=== PATIENT | male | born 1950 | race Caucasian/White ===

== ENCOUNTER 2024-01-05 11:34 | Emergency (ER) | payer MEDICARE, SELFPAY ==
--- NOTE | ~2024-01-05 | XR_ITS ---
EXAMINATION: XR FOOT, RIGHT CLINICAL INFORMATION: Right thrid toe redness and swelling COMPARISON: None available. TECHNIQUE: AP, lateral, and oblique views of the right foot. FINDINGS: Osseous structures of the foot are aligned anatomically with joint spaces maintained. No acute fracture. There is soft tissue swelling to the third digit. No radiopaque foreign body. No erosion. Moderate plantar calcaneal spur. Rounded soft tissue calcifications are noted overlying the skin. XR/XR foot RT 2V IMPRESSION: 1. Soft tissue swelling to the third digit. No radiopaque foreign body. No erosion. 2. Moderate plantar calcaneal spur.
[2024-01-05 11:43] VITALS: BP 117/75; PULSE 98; RESP 16; TEMP 37.2; O2SAT 97; BMI 25.4
--- NOTE | 2024-01-05 11:50 | ED_ITS ---
HPI - General Adult General Chief complaint: General Medical Stated complaint: Toe infection Time Seen by Provider: 01/05/24 11:52 Source: patient Mode of arrival: ambulatory Limitations: no limitations History of Present Illness ED Provider: Britney Phillips PA-C HPI narrative: 73 year old male patient with a PMHx of diabetes presents to the ER due to 1 day of swelling of the right third toe. States that he is not compliant with his diabetes medications. He attempted to take his diabetes medication yesterday to help with the swelling. But otherwise, inconsistent. He admits to having uncomfortable shoes, believes his toe was rubbing on it. Denies dyspnea, chest pin, palpitations, fever or chills. Onset (ago): day(s) Location: right (3rd toe) Radiation: non-radiation Severity: mild Severity scale (1-10): 3 Quality: aching and dull Pain Consistency: constant Relieving factors: none Exacerbating factors: none Associated symptoms: denies other symptoms Treatments prior to arrival: none Related Data Previous Rx's ?Medication ?Instructions ?Recorded cephalexin 500 mg capsule 500 mg PO Q6H 7 days #28 caps 01/05/24 cephalexin 500 mg tablet 500 mg PO Q6H 7 days #28 tabs 01/05/24 doxycycline hyclate 100 mg capsule 100 mg PO BID 7 days #14 caps 01/05/24 doxycycline hyclate 100 mg tablet 100 mg PO BID 7 days #14 tabs 01/05/24 Allergies Allergy/AdvReac Type Severity Reaction Status Date / Time No Known Allergies Allergy Verified 01/05/24 11:45 Review of Systems 2 Constitutional: Constitutional: Reports no additional constitutional complaints, Denies chills, Denies fever(s) and Denies night sweats Eyes: Eyes: Reports no additional eye complaints, Denies blurry vision, Denies change in vision, Denies diplopia, Denies eye discharge, Denies loss of vision and Denies eye pain ENT: Denies dizziness Cardiovascular: Cardiovascular: Reports no additional cardiovascular complaints, Denies chest pain, Denies lightheadedness, Denies Loss of Consciousness and Denies dyspnea Respiratory: Respiratory: Reports no additional respiratory complaints and Denies dyspnea Gastrointestinal: Gastrointestinal: Reports no additional gastrointestinal complaints, Denies abdominal pain, Denies melena, Denies hematochezia, Denies change in bowel habits and Denies change in stool character Genitourinary: Genitourinary: Reports no additional male genitourinary complaints, Denies hematuria, Denies oliguria, Denies difficulty urinating, Denies dysuria, Denies urinary frequency, Denies urinary hesitancy, Denies urinary incontinence and Denies urinary urgency Musculoskeletal: Musculoskeletal: Reports no additional musculoskeletal complaints, Denies numbness and Denies tingling Comments: right 3rd toe swelling Neurologic: Denies dizziness, Denies loss of vision, Denies numbness and Denies tingling Psychiatric: Psychiatric: Reports no additional psychiatric complaints Endocrine: Endocrine: Reports no additional endocrine complaints Hematologic/Lymphatic: Hematologic/Lymphatic: Reports no additional hematologic/lymphatic complaints Allergic/Immunologic: Allergic/Immunologic: Reports no additional allergic/immunologic complaints PMFSH Past Medical History Attestation statement: The following information was validated with the patient. Source: old records reviewed and nursing notes reviewed Social History Social History Smoked in Last 30 Days: No Use of substances other than those prescribed or required for medical reasons: No Advance Directives: No Advance Directives Information Provided: No Physical Exam ED Vital Signs: Vital Signs - 24 hr 01/05/24 11:43 01/05/24 12:00 01/05/24 14:00 Temperature 98.9 F Pulse Rate 98 72 78 Respiratory Rate 16 16 16 Blood Pressure 117/75 119/68 122/70 Pulse Oximetry 97 96 97 Oxygen Delivery Method Room Air Room Air Room Air 01/05/24 15:19 Temperature 0 F L Pulse Rate 78 Respiratory Rate 16 Blood Pressure 122/70 Pulse Oximetry 97 Oxygen Delivery Method Room Air BMI result Body Mass Index 25.4 Const General: cooperative, no acute distress, alert and awake Nutritional Appearance: well nourished Orientation/consciousness: patient oriented x3 Limitations: no limitations HENMT Head: Yes normal to inspection and Yes atraumatic Ears: hearing grossly normal bilaterally and external ears normal General nose exam: Normal external nose present, no nasal discharge noted and no epistaxis Face and sinus: Yes normal facial exam, No abrasion and No laceration Mouth: Normal oral and palatal mucosa present, no drooling and no muffled voice Eyes General: appearance normal, both eyes and all related structures Periorbital: periorbital findings normal Eyelids: Yes eyelids normal Conjunctivae: conjunctivae normal Pupils: Equal, round and reactive pupils present EOM: EOMs intact bilaterally Neck Neck: Yes normal visual inspection, Yes full ROM and Yes no lymphadenopathy Chest Chest palpation & inspection: normal inspection of the chest Resp Effort & Inspection: normal respiratory effort and able to speak in complete sentences GI Inspection: Yes normal to inspection Neuro General: patient oriented x3 and moves all extremities Cranial nerves: Yes Equal, round and reactive pupils present Cognition (Neuro): normal cognition Extrem General: Yes full ROM and Yes capillary refill normal Right lower extremity: foot (right third toe erythematous, tender to palpation, fluctuant ) Details: tenderness, warmth and edema Psych Appearance: grossly normal Mental Status: mental status grossly normal Affect: normal affect Attitude: cooperative Thought process: Normal thought process present Thought content: Normal thought content present Insight: Good insight present (Psych) Course Course Course Narrative: RME: Done by Abdirizak. 73 yold male with past medical history of diabetes presents to ED for right 3rd foot toe redness and swelling since last night. Patient denies any recent trauma. Exam positive for right 3rd toe redness and swelling. Labs x-ray ordered. Patient brought to the ED. Medications Administered Discontinued Medications Generic Name Dose Route Start Last Admin Trade Name Freq PRN Reason Stop Dose Admin Cephalexin HCl 500 mg 01/05/24 14:56 01/05/24 15:12 Cephalexin 500 Mg Capsule PO 01/05/24 14:57 500 mg ONCE ONE Administration Doxycycline Monohydrate 100 mg 01/05/24 14:56 01/05/24 15:12 Doxycycline Monohydrate 100 Mg Capsule PO 01/05/24 14:57 100 mg ONCE ONE Administration Procedures Abscess I/D Site: other (3rd toe) Side (if applicable): right Technique: needle aspiration Amount of fluid expressed (mL): 15 Sent for culture/gram staining?: No Irrigation: No Packing used?: none Medical Decision Making Medical Decision Making [facility] Narrative: Patient is a 73 year old assigned male at with a history of diabetes for which he is non-compliant on medications presenting to the emergency department today with right 3rd toe swelling. Patient's physical exam was as noted in the physical exam portion of this note. Patient's blood work was unremarkable. Patient's right foot x-ray showed no acute process. I explained my physical exam findings as well as all test results to the patient. I answered all questions asked by the patient. Patient's toe abscess was incised and drained, without incident. I stressed the importance of the patient taking his medication as directed (either prescribed or as the over the counter packaging recommends). I stressed the importance of the patient following up with his primary care provider and with the wound center. I stressed the importance of the patient returning to the emergency department immediately if his symptoms were to worsen or if he were to develop any dizziness, shortness of breath, difficulty breathing, chest pain, blurry vision, loss of vision, nausea, vomiting, abdominal pain, fever, chills, back pain, or any other complaints. Patient verbalized agreement and understanding with this treatment plan and discharge. Differential Diagnosis Differential Diagnoses: The differential diagnosis associated with the presentation includes Toe abscess Uncontrolled diabetes Admission/Observation Consideration of admission/observation: Escalation of care including admission/observation considered Patient would have been admitted to the hospital had his work up had any findings where hospital admission was appropriate and his clinical presentation warranted hospital admission. Lab Data [facility] Lab Attestation statement: I reviewed the patient's lab results. My interpretation of these results are in the MDM Rationale portion of this note. 01/05/24 12:18 01/05/24 12:18 Labs: Lab Results 01/05/24 01/05/24 Range/Units 12:17 12:18 WBC 9.2 (4.8-10.8) X10*3/uL RBC 4.74 (4.60-5.80) X10*6/uL Hgb 13.8 L (14.0-18.0) g/dl Hct 39.5 L (42.0-52.0) % MCV 83.3 (80.0-98.0) fL MCH 29.1 (27.0-33.0) pg MCHC 34.9 (31.0-36.0) g/dl RDW 12.1 (11.0-16.0) % Plt Count 293 (160-400) X10*3/uL MPV 10.2 (9.4-12.4) fL Immature Gran % (Auto) 0.4 (0.0-0.4) % Neut % (Auto) 68.2 (45-73) % Lymph % (Auto) 20.9 (20-40) % [place] % (Auto) 7.8 (2-11) % Eos % (Auto) 2.0 (0-4) % Baso % (Auto) 0.7 (0-2) % Lymph # (Auto) 1.9 (1.2-4.9) X10*3/uL [place] # (Auto) 0.7 (0.1-1.2) X10*3/uL Eos # (Auto) 0.2 (0.0-0.4) X10*3/uL Baso # (Auto) 0.1 (0.0-0.2) X10*3/uL Abs Immat Gran (auto) 0.04 H (0.00-0.03) X10*3/uL Absolute Neuts (auto) 6.3 (2.0-8.3) x10*3/uL Absolute Nucleated RBC 0.000 (0.0-0.012) X10*3/uL Nucleated RBC % (auto) 0.0 (0.0-0.2) /100WBC ESR 19 H (0-15) MM/HR Sodium 134 L (135-145) mmol/L Potassium 4.6 (3.3-5.1) mmol/L Chloride 100 (96-108) mmol/L Carbon Dioxide 23 (22-29) mmol/L Anion Gap 16 (12-20) BUN 19 H (9-16) mg/dL Creatinine 0.80 (0.5-1.4) mg/dL Estim Creat Clear Calc 79.5 Estimated GFR > 60 Random Glucose 344 H (60-115) mg/dL Lactic Acid 1.2 (0.5-2.0) mmol/L Calcium 9.6 (8.4-10.2) mg/dL Total Bilirubin 0.8 (0.0-1.0) mg/dL AST 11 (5-37) U/L ALT 12 (0-40) U/L Alkaline Phosphatase 84 (39-117) U/L C-Reactive Protein 2.82 H (< or = 0.50) mg/dL Total Protein 6.6 (6.5-8.0) g/dL Albumin 3.7 (3.5-5.0) g/dL Independent Interpretation I performed an independent interpretation of an: Plain X-Ray Interpretation: My interpretation is in agreement with the radiologist's impression of this imaging study. - EXAMINATION: XR FOOT, RIGHT CLINICAL INFORMATION: Right thrid toe redness and swelling COMPARISON: None available. TECHNIQUE: AP, lateral, and oblique views of the right foot. FINDINGS: Osseous structures of the foot are aligned anatomically with joint spaces maintained. No acute fracture. There is soft tissue swelling to the third digit. No radiopaque foreign body. No erosion. Moderate plantar calcaneal spur. Rounded soft tissue calcifications are noted overlying the skin. XR/XR foot RT 2V IMPRESSION: 1. Soft tissue swelling to the third digit. No radiopaque foreign body. No erosion. 2. Moderate plantar calcaneal spur. Dictated By: Huma River Signed By: Electronically signed by Huma River 01/05/24 1526 Radiology Impression Discussion of test interpretation with radiology: I have reviewed the radiologist's reading. Prescription Management I considered prescription management with: Antibiotic (patient prescribed an antibiotic) Chronic Conditions Patient?s care impacted by: Diabetes Critical Care Time Critical Care Time Critical Care Time: Yes Total Critical Care Time: 38 Attestation: I spent 38 minutes of Critical Care Time with this patient. This does not include time spent on separately reported billable procedures. Discharge Plan Discharge Clinical Impression: Abscess, Cellulitis Patient Disposition: Home, Self-Care Instructions: Cellulitis (DC), Abscess Incision and Drainage (DC) Additional Instructions: Take your antibiotics as directed. Do NOT soak the affected area. Follow up with your primary care provider and with wound care. Please take your diabetic medications as prescribed. Return to the emergency department immediately if your symptoms worsen or if you develop any dizziness, shortness of breath, difficulty breathing, chest pain, blurry vision, loss of vision, nausea, vomiting, abdominal pain, fever, chills, back pain, or any other complaints. Prescriptions: New cephalexin 500 mg capsule 500 mg PO Q6H 7 Days Qty: 28 0RF doxycycline hyclate 100 mg tablet 100 mg PO BID 7 Days Qty: 14 0RF doxycycline hyclate 100 mg capsule 100 mg PO BID 7 Days Qty: 14 0RF cephalexin 500 mg tablet 500 mg PO Q6H 7 Days Qty: 28 0RF Referrals: [facility] [Provider Group] (Call to establish and follow up with the wound center.) José Miguel Vega PA [Primary Care Provider] - Interventions: ED Discharge Assessment Last Done: 01/05/24 15:19 Discharge Date/Time: 01/05/24 15:20 Print Language: Icelandic
[2024-01-05 12:00] VITALS: BP 119/68; PULSE 72; RESP 16; O2SAT 96
--- NOTE | 2024-01-05 12:15 | PC.NURSE ---
pt is alert and oriented, skin pwd, respirations even and unlabored, pt reports being at [employer] yesterday and wearing tight socks/shoes and noticed redness/soreness to his third right toe-third toe has a large like blister on the tip of the toe/blue in color/redness to the top of the foot at well. positive pedal pulses to bilateral feet.
[2024-01-05 12:28] LABS: MANUAL DIFF FLAG NO
[2024-01-05 12:40] LABS: Basophils Absolute Auto 0.1 X10*3/uL (0.0-0.2); Basophils Percent Auto 0.7 % (0-2); Eosinophils Absolute Auto 0.2 X10*3/uL (0.0-0.4); Hematocrit 39.5 % (42.0-52.0); Hemoglobin 13.8 g/dl (14.0-18.0); Imm Gran Abs Auto 0.04 X10*3/uL (0.00-0.03); Imm Gran Pct Auto 0.4 % (0.0-0.4); Lymphocytes Absolute Auto 1.9 X10*3/uL (1.2-4.9); Lymphocytes Percent Auto 20.9 % (20-40); Mean Corpuscular HGB Conc 34.9 g/dl (31.0-36.0); Mean Corpuscular Hemoglobin 29.1 pg (27.0-33.0); Mean Corpuscular Volume 83.3 fL (80.0-98.0); Mean Platelet Volume 10.2 fL (9.4-12.4); Monocytes Absolute Auto 0.7 X10*3/uL (0.1-1.2); Monocytes Percent Auto 7.8 % (2-11); Neutrophils Absolute Auto 6.3 x10*3/uL (2.0-8.3); Neutrophils Percent Auto 68.2 % (45-73); Platelet Count 293 X10*3/uL (160-400); Red Blood Count 4.74 X10*6/uL (4.60-5.80); Red Cell Distribution Width 12.1 % (11.0-16.0); White Blood Count 9.2 X10*3/uL (4.8-10.8)
[2024-01-05 12:51] LABS: Lactic Acid 1.2 mmol/L (0.5-2.0)
[2024-01-05 12:54] LABS: Alanine Aminotransferase 12 U/L (0-40); Albumin Level 3.7 g/dL (3.5-5.0); Alkaline Phosphatase 84 U/L (39-117); Anion Gap 16 (12-20); Aspartate Amino Transferase 11 U/L (5-37); Bilirubin Total 0.8 mg/dL (0.0-1.0); Blood Urea Nitrogen 19 mg/dL (9-16); C Reactive Protein 2.82 mg/dL (< or = 0.50); Calcium 9.6 mg/dL (8.4-10.2); Carbon Dioxide 23 mmol/L (22-29); Chloride 100 mmol/L (96-108); Creatinine Clr Calc Pharmacy 79.5; Estimated Glomerular Filt Rate > 60; Glucose Random 344 mg/dL (60-115); Potassium 4.6 mmol/L (3.3-5.1); Sodium 134 mmol/L (135-145); Total Protein 6.6 g/dL (6.5-8.0)
[2024-01-05 13:20] LABS: Erythrocyte Sedimentation Rate 19 MM/HR (0-15)
[2024-01-05 14:00] VITALS: BP 122/70; PULSE 78; RESP 16; O2SAT 97
[2024-01-05] MEDS: cephALEXin 500 MG CAPSULE PO (15:12)
[2024-01-05] MEDS: Doxycycline Monohydrate 100 MG CAPSULE PO (15:12)
[2024-01-05 15:19] VITALS: BP 122/70; PULSE 78; RESP 16; TEMP -17.7; TEMP 0; O2SAT 97
== END 2024-01-05 15:20 | disposition home or self-care (01) ==
PROVIDERS: Physician Assistant; Emergency Provider Emergency Medicine; PCP Physician Assistant
DX: L02.611 Cutaneous abscess of right foot (principal); M79.89 Other specified soft tissue disorders; Z91.148 Patient's other noncompliance with medication regimen for other reason; Z79.899 Other long term (current) drug therapy
CPT/HCPCS: 10060; 26010; 36415; 73620; 80053; 83605; 85025; 85652; 86140; 87040; 99283; 99284

== ENCOUNTER 2024-01-18 14:03 | Outpatient (RCR) | payer MEDICARE, SELFPAY | END 2024-02-24 09:57 | disposition home or self-care (01) | LOC: HO.WCC 14:03 | PROVIDERS: PCP Physician Assistant; Visit Provider Surgery | DX: Z09 Encounter for follow-up examination after completed treatment for conditions other than malignant neoplasm (principal); E11.40 Type 2 diabetes mellitus with diabetic neuropathy, unspecified; Z87.891 Personal history of nicotine dependence; Z79.4 Long term (current) use of insulin; Z79.84 Long term (current) use of oral hypoglycemic drugs; Z86.31 Personal history of diabetic foot ulcer | CPT/HCPCS: 99212 ==

== ENCOUNTER 2024-09-06 14:55 | Outpatient (AMB) | payer MEDICARE, SELFPAY ==
--- NOTE | 2024-09-06 14:57 | A.OFFVIS_ITS ---
Intake Visit Reasons: ED/retrograde ejaculation Intake Note: Patient is present for ED/ RETROGRADE EJACULATION Urology Medication:NONE Antibiotic Allergy:NONE Blood Thinner:NONE TODAY'S PVR:311ML'S English Composition Instructor Required: No Allergies No Known Allergies Allergy (Verified 09/06/24 14:58) HPI Comments Details: History of Present Illness The patient is a 73-year-old male presenting with erectile dysfunction. He reports a complete absence of erections and a lack of semen production, an issue he notes during masturbation as his is absent. He attributes some of his difficulties to his uncontrolled Type 2 Diabetes Mellitus, as he discontinued his medications fearing cancer risks, resulting in significantly high hemoglobin A1c levels. 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 Although previously untreated for erectile issues and without any sexual partner currently due to his 's absence, he has shown interest in pharmaceutical intervention like tadalafil to manage erectile dysfunction. Urinary Symptoms Review - Reports lack of semen production during masturbation - Describes possible retrograde ejaculation due to prostate enlargement and diabetic neuropathy Review of Systems - Endocrine: Reports uncontrolled blood glucose levels related to untreated diabetes - Musculoskeletal: Reports osteoporosis in the knee affecting mobility and requiring a handicap sticker Const All systems reviewed & are unremarkable except as noted in HPI and below Reports no additional complaints Eyes Reports no additional complaints ENT Reports no additional complaints Card Reports no additional complaints Resp Reports no additional complaints GI Reports no additional complaints Reports as per HPI Musc Reports no additional complaints Skin/Breast Reports system reviewed and no additional complaints, except as documented Neuro Reports no additional complaints Psych Reports no additional complaints Endo Reports no additional complaints Nacho/Lymph Reports no additional complaints Aller/Immun Reports no additional complaints Physical Exam General: Healthy appearing, no acute distress and well developed Orientation and consciousness: Patient oriented x3 Head: Yes normocephalic and Yes atraumatic Eyes: Conjunctivae normal Neck: Yes normal visual inspection Chest: Normal inspection of the chest Respiratory: Normal respiratory effort GI: Normal to inspection : Extremities: Skin: Neurology: Patient oriented x3 Psych: Appearance grossly normal. Normal affect Results Plan I will prescribe tadalafil for erectile dysfunction and order a PSA test to evaluate prostate health, along with kidney and bladder ultrasound for diagnostic clarity related to symptoms of retrograde ejaculation and potential diabetic neuropathy implications. The patient's current diabetes management is insufficient, impacting his symptoms, so his primary care provider will be alerted to initiate control. The patient has consented to the tadalafil treatment and agreed to the necessary evaluations with a GoodRx coupon being utilized for affordability. Patient was informed and verbally consented to the use of an ambient scribe for clinic note documentation during this visit. Discussion Notes I discussed with the patient the potential contributor of uncontrolled diabetes to his erectile dysfunction, explaining how high glucose levels could damage the nerves essential for erections. I informed him that his prostate health could also be influencing his symptoms, and therefore, a PSA test and ultrasound were recommended. We talked about tadalafil as a management option, considering his lifestyle and current situation without an active partner. I highlighted the use of GoodRx coupons to mitigate prescription costs. We discussed the necessity of avoiding sexual activity 48 hours before the PSA test. He agreed to the proposed management plan, understanding the benefits and alternatives. Patient Instructions - Start taking tadalafil 5 mg daily as prescribed. - Schedule and complete a PSA test and a kidney and bladder ultrasound. - Avoid sexual activity 48 hours before the PSA test. - Use the GoodRx coupon for affordability when filling your prescription. - Follow up regarding diabetes management with your primary care provider. Office Procedures Post Void Residual Post Residual Void Post Void Residual (PVR): [id number] Void Residual by ultrasound Results AMB Urinalysis, Automated UA Leukoctes 15 Alexandre/uL Last Edit by MARGA Appiah on 09/06/24 15:19 UA Nitrite Negative Last Edit by MARGA Appiah on 09/06/24 15:19 UA Urobilinogen 3.5 mg/dL Last Edit by MARGA Appiah on 09/06/24 15:1 9 UA Protein 0 mg/dL Last Edit by MARGA Appiah on 09/06/24 15:19 UA pH 6.0 Last Edit by MARGA Appiah on 09/06/24 15:19 UA Blood 10 Bhupinder/uL Last Edit by MARGA Appiah on 09/06/24 15:19 UA Specific [place] 1.010 Last Edit by MARGA Appiah on 09/06/24 15: 19 UA Ketone Negative Last Edit by MARGA Appiah on 09/06/24 15:19 UA Bilirubin 0 mg/dL Last Edit by MARGA Appiah on 09/06/24 15:19 UA Glucose 60 mg/dL Last Edit by MARGA Appiah on 09/06/24 15:19 Results Reviewed Results Reviewed: Laboratory Last Values Urine pH (Auto) 6.0 09/06/24 15:13 Specific [place]onson (Auto) 1.010 09/06/24 15:13 Urine Protein (Auto) 0 mg/dL 09/06/24 15:13 Glucose (UA)(Auto) 60 mg/dL 09/06/24 15:13 Urine Ketones (Auto) Negative 09/06/24 15:13 Urine Blood (Auto) 10 Bhupinder/uL 09/06/24 15:13 Urine Nitrite (Auto) Negative 09/06/24 15:13 Urine Bilirubin (Auto) 0 mg/dL 09/06/24 15:13 Urine Urobilinogen (Auto) 3.5 mg/dL 09/06/24 15:13 Leukocyte Esterase (Auto) 15 Alexandre/uL 09/06/24 15:13 Assessment & Plan Assessment & Plan Orders: Orders AMB Urinalysis Automated Today Z13.9 - Encounter for screening, unspecified Coding CPT Codes Post Residual Void - PVR CPT Code: 29488-Wuvp Void Residual by ultrasound ([id number])
--- OUTSIDE RECORDS SUMMARY | 2024-09-06 18:25 | XMS_ITS | Clinical Summary ---
Author Organization [facility] Address [address] [place] [address] Care Team Providers Care Risk Control Director Name Role Phone José Miguel Vega Primary Care Provider [phone] Source Comments PLEASE NOTE, if this patient is a minor, it may be UNLAWFUL to discuss sensitive information that is contained in these records (such as FAMILY PLANNING, MENTAL HEALTH or SUBSTANCE ABUSE) with the minor patient's parent or other person without the patient's specific authorization.[facility] Allergies No known active allergies Medications [id number] h-wqgzzad-owf (KRILL OIL) [id number] mg cap Take by mouth 021 Active diaper,brief,adul t,disposableIndic ations:Urinary incontinence, unspecified type Use one breif three times daily for urinary leakage. DEPENDS PROTECTION PLUS. 120 Each 023 Active MISCELLANEOUS MEDICAL SUPPLY MISCIndications:U rinary incontinence, unspecified type by miscellaneous route once daily Adults pull-ups for men size (L)- 38-42. Lifetime need. BMI 26.99, dx urinary incontinence 180 Each 023 Active diaper,brief,adul t,disposableIndic ations:Type 2 diabetes mellitus with hyperglycemia, with long-term current use of insulin ([facility]),Urinary incontinence, unspecified type Use one brief twice daily for urinary incontinence. 120 Each 023 Active MISCELLANEOUS MEDICAL SUPPLY MISC Patient to use daily to assist with mobility. 1 Each 023 Active blood sugar diagnostic (CONTOUR NEXT TEST STRIPS) strips Test blood sugars TID w/meals and for symptoms of hypoglycemia 100 Each 023 Active MISCELLANEOUS MEDICAL SUPPLY MISCIndications:L ow back pain, unspecified back pain laterality, unspecified chronicity, unspecified whether sciatica present,Primary osteoarthritis of both knees,DEB (obstructive sleep apnea),Muscular deconditioning Please dispense one each of the following: bed pads, pillows, boost, a scooter, a hand rail and new toilet bowl (higher toilet bowl). 1 Each 023 Active underpadsIndicati ons:Dyslipidemia, Low back pain, unspecified back pain laterality, unspecified chronicity, unspecified whether sciatica present,Neck pain,Primary osteoarthritis of both knees,Class 1 obesity in adult, unspecified BMI, unspecified obesity type, unspecified whether serious comorbidity present,Other sleep apnea,Dysphagia, unspecified type,Hip pain, unspecified laterality,DEB (obstructive sleep apnea),Vision changes,Type 2 diabetes mellitus with hyperglycemia, with long-term current use of insulin (HCC-CMS),Diabeti c polyneuropathy associated with type 2 diabetes mellitus (HCC-CMS),Caries, Caries of pulp,Mixed stress and urge urinary incontinence,Semaj ry changes,Vitamin D deficiency,Muscul ar deconditioning Bed pads 18 X 24, disposable. 30 each per month for 11 months. 30 Each 023 Active psyllium seed, with dextrose, (METAMUCIL) powder Take 3 g of fiber by mouth once daily 368 g Active ammonium lactate (LAC-HYDRIN) 12 % lotion Apply topically as needed for dry skin 400 g 3 024 Active multivitamin tablet Take 1 Tablet by mouth once daily 90 Tablet 4 024 Active minoxidiL (ROGAINE) 2 % external solutionIndicatio ns:Hair loss disorder Apply topically 2 (two) times daily 60 mL 2 024 Active blood-glucose meter monitoring kitIndications:Ty pe 2 diabetes mellitus without complication, without long-term current use of insulin (HCC-CMS) as needed for blood glucose monitoring 1 Each 024 Active flash glucose sensor kit Use to test blood glucose at least 3 times daily. (Freestyle Viviane 3) 1 Kit Active blood sugar diagnostic (FREESTYLE LITE STRIPS) stripsIndications :Type 2 diabetes mellitus without complication, without long-term current use of insulin ([facility]) Use to test blood sugar once daily 100 Each Active ketorolac (ACULAR) 0.5 % ophthalmic solution Authorized by: JENNA BLACKMON Active flash glucose scanning reader miscIndications:T ype 2 diabetes mellitus with hyperglycemia, with long-term current use of insulin ([facility]) Use to test blood glucose at least 3 times daily - Freestyle Viviane 2 reader. 1 Each Active flash glucose sensor kitIndications:Ty pe 2 diabetes mellitus with hyperglycemia, with long-term current use of insulin ([facility]) Apply sensor to back of upper arm and change every 14 days. Use to test blood glucose at least 3 times daily (Freestyle Viviane 2 sensor). 2 Kit Active lancets 28 gaugeIndications: Type 2 diabetes mellitus with hyperglycemia, with long-term current use of insulin ([facility]) Use to check blood sugar up to 3 times daily (Freestyle Lancets) 100 Each 11 Active alcohol swabsIndications: Type 2 diabetes mellitus with hyperglycemia, with long-term current use of insulin ([facility]) Use to clean finger to test blood sugar up to 3 times daily. 100 Each 11 Active blood sugar diagnostic (BLOOD GLUCOSE TEST) stripsIndications :Type 2 diabetes mellitus with hyperglycemia, with long-term current use of insulin ([facility]) Use to test blood glucose at least 3 times daily. (Freestyle Precision Damien) 100 Each 5 Active atorvastatin (LIPITOR) 80 mg tabletIndications :Type 2 diabetes mellitus with hyperglycemia, with long-term current use of insulin ([facility]),Medicat ion refill Take 1 Tablet by mouth once daily 90 Tablet 3 024 Active dorzolamide (TRUSOPT) 2 % ophthalmic solution Active glycerin, adult, suppository Place 1 Suppository rectally as needed for constipation 30 Suppository 1 Active insulin lispro 100 unit/mL injection penIndications:Ty pe 2 diabetes mellitus with hyperglycemia, with long-term current use of insulin ([facility]) Below 100 - no insulin, 101 to 150 - 5 units, 151 to 200 - 10 units, 201 to 250 - 15 units, 251 to 300 - 20 units, 301 to 350 - 25 units; Max 75 units/day 15 mL 2 Active insulin glargine (LANTUS SOLOSTAR U-100 INSULIN) 100 unit/mL (3 mL) penIndications:Ty pe 2 diabetes mellitus with hyperglycemia, with long-term current use of insulin ([facility]),Uncontr olled type 2 diabetes mellitus with hyperglycemia ([facility]) Inject 30 units hs subcutaneously 15 mL 3 Active SURE COMFORT PEN NEEDLE 32 gauge x 1/4 ndle Use 4 times daily to inject insulin 100 Each 11 Active dapagliflozin propanediol (FARXIGA) 5 mg tabIndications:Ty pe 2 diabetes mellitus without complication, without long-term current use of insulin ([facility]) Take 1 Tablet by mouth every morning 30 Tablet Active cholecalciferol, vitamin D3, (VITAMIN D3) 1,250 mcg (50,000 unit) capsuleIndication s:Vitamin D deficiency TAKE ONE CAPSULE BY MOUTH ONCE A WEEK 12 Capsule 5 Active metFORMIN (GLUCOPHAGE) 1,000 mg tabletIndications :Type 2 diabetes mellitus with hyperglycemia, with long-term current use of insulin ([facility]),Diabeti c polyneuropathy associated with type 2 diabetes mellitus ([facility]) Take 1 Tablet by mouth 2 (two) times daily with a meal 60 Tablet Active latanoprost (XALATAN) 0.005 % ophthalmic solutionIndicatio ns:ocular hypertension INSTILL ONE DROP INTO BOTH EYES NIGHTLY AT BEDTIME Indications: increased pressure in the eye 10 mL 2 Active Active Problems Patient Care Coordination No te Formatting of this note migh t be different from the original. 68 y/o male here today for diabetes management f/u evaluation. Latest HgbA1c 04/12/19 up to 7.7% from 7% 3 mo's prior. Followed by Cheyenne Lynn PA-C for Diabetes management, last seen 03/20/19.Glucometer review showed sub optimal control w/ once daily FBS testing x past 2wk. No changes made to current regimen: levemir 60 u and ozempic .25mg qWk Tuesdays, metformin 1000 mg bid. Instructed to f/u in 2 mo's for glucometer review and medication adjustments PRN. Problem Noted Date Diagnosed Date Disease due to severe acute respiratory syndrome coronavirus 2 (SARS-CoV-2) 08/14/2023 Overview (02/23/2024): Problem added by Discern Expert Elevated cholesterol 08/12/2021 Dysphagia 08/12/2021 Chronic cough 10/15/2019 Essential hypertension 06/19/2019 Closed fracture of distal en d of right fibula with routine healing 08/28/2018 Overview (10/02/2018): 08/25/18 - [facility] ED - S/P slip and fall with right ankle pain. Xray reveals - Oblique minimally displaced fracture through the distal fibula w/ associated swelling. Patient set to follow up with [facility] ortho. Cellulitis and abscess of lower extremity 2015 Overview (04/27/2016): Hospitalized about 2.5 weeks ago at [facility], April 09 for cellulitis from Tuesday night until Tuesday. Given IV antibiotics. Doxacillin? Left bundle branch block (LBBB) 11/15/2015 Overview (11/15/2015): Paradoxical septal wall motion with ef-50-55% - mildly reduced systolic dysfunction. Aortic sclerosis - transverse aorta -3.2cm Managed by [facility] cardiology -advised on sleep apnea treatment, weight loss Slow transit constipation 06/18/2015 Gall stones 10/09/2014 Abdominal pain in male 07/09/2014 Overview (08/05/2014): Ct abdomen/pelvis- small amount of increased density material ? Sludge ?calculi. - remain of exam- normal. Herpes 09/05/2013 Type 2 diabetes mellitus wit h hyperglycemia, with long-term current use of insulin ([facility]) 07/31/2013 Overview (06/19/2019): 03/20/19 - Latest HgbA1c 04/12/19 up to 7.7% from 7% 3 mo's prior. Followed by Cheyenne Lynn PA-C for Diabetes management, last seen 03/20/19.Glucometer review showed sub optimal control w/ once daily FBS testing x past 2wk. No changes made to current regimen: levemir 60 u and ozempic .25mg qWk Tuesdays, metformin 1000 mg bid. Instructed to f/u in 2 mo's for glucometer review and medication adjustments PRN. - eye doctor at [place]- 11/19/15- No retinopathy -[address] [place] [address] jay guy. -cardiology at [facility]. - dr. federica pan -[facility] endocrinology. - Abdominal pain in male patient 07/26/2013 Overview (08/06/2013): U/s of right lower quadrant- no renal stones, no hernia, normal Hip pain 07/03/2013 Osteoarthritis of both knees 03/25/2013 Obesity 03/25/2013 Overview (07/07/2023): Seen by weight loss on lantus and humalog which he is not taking , add glp-1 agonist next visit. DEB (obstructive sleep apnea) 03/25/2013 Overview (07/07/2023): Severe obstructive sleep apnea, advised positive airway pressure ,cpap. pt wants Dental appliance, . H/O left bundle branch block 03/25/2013 Overview (06/14/2015): Seen by [facility] cardiology- persistent LBBB,?inferior wall mi. Stress test-09/2010- lv-50%,all salazar were thought to augment normally with mild depressed lv function-50%. Advised on use of cpap, increased activity, weight loss. BPH (benign prostatic hyperplasia) 03/25/2013 Diabetes mellitus (HCC-CMS) 03/20/2013 Dyslipidemia 03/20/2013 Low back pain 03/20/2013 Neck pain 03/20/2013 Resolved Problems Problem Noted Date Diagnosed Date Resolved Date Acute cystitis with hematuria 06/18/2015 02/20/2021 Knee pain, bilateral 07/31/2013 014 Abdominal pain 07/03/2013 08/06/2013 Vitamin D deficiency 01/25/2013 013 Encounters Date Type Department Care Team Description 07/18/2024 2:20 PM EST Office Visit [facility] [address] [place] [phone] Rene Castro PharmD Type 2 diabetes mellitus with hyperglycemia, with long-term current use of insulin ([facility]) (Primary Dx); Medication management 07/18/2024 Travel 06/19/2024 3:40 PM EST Office Visit [address] [phone] José Miguel Vega PA Type 2 diabetes mellitus without complication, without long-term current use of insulin (HCC-CMS) (Primary Dx); Erectile dysfunction, unspecified erectile dysfunction type; Retrograde ejaculation; Vitamin D deficiency; Type 2 diabetes mellitus with hyperglycemia, with long-term current use of insulin (HCC-CMS); Diabetic polyneuropathy associated with type 2 diabetes mellitus (HCC-CMS); Primary open angle glaucoma (POAG) of both eyes, mild stage 06/19/2024 Travel from Last 3 Months Immunizations Name Administration Dates Next Due Flu, High Dose, 65y+, Fluzon e High Dose 04/06/2023,04/22/2022,06/16/2021 Flu, Preservative Free 07/19/2018 INFLUENZA, SEASONAL, INJECTABLE 03/27/2016,07/09,03/20/2013 Influenza (FLUZONE), high-do se, trivalent, PF 03/26/2024,05/10/2019 MODERNA COVID-19 VACCINE BIV ALENT, BLUE CAP, 6M+ 04/22/2022 Moderna COVID-19 Vaccine, re d cap blue label, 12+ Primary Series 11/12/2021,06/17/2021,09/20/2020,08/23 PNEUMOCOCCAL CONJUGATE PCV 13 06/03/2016 PNEUMOCOCCAL POLYSACCHARIDE PPV23 09/04/2019,12/2014 Pfizer COVID-19 (Comirnaty), Mrna, Lnp-s, Pf, James-sucrose, 30 Mcg/0.3 Ml, 12yr+ 03/26/2024,11/30/2023 TDAP 07/19/2018,12/24/2014 ZOSTER VACCINE, RECOMBINANT (SHINGRIX) 2,12/08/2021 Family History Medical History Relation Name Comments Diabetes Father Other (See Comments) Maternal Grandfather Alzheimers Relation Name Status Comments Father Maternal Grandfather Social History Tobacco Use Types Packs/Day Years Used Date Smoking Tobacco: Never Cigarettes Qu it: 07/04/2002 Smokeless Tobacco: Never Quit: 07/04/2004 Alcohol Use Standard Drinks/Week Comments No 0 (1 standard drink = 0.6 oz pur e alcohol) Social Connections Answer Date Recorded Connectedness 1 07/07/2023 Financial Resource Strain Answer Date R ecorded Financial Resource Strain 1 2023 Stress Answer Date Recorded Stress 1 07/07/2023 Physical Activity Answer Date Recorded Physical Activity 0 02/24/2019 Food Insecurity Answer Date Recorded Food 1 07/07/2023 Transportation Needs Answer Date Record ed Transportation 1 07/07/2023 Housing Stability Answer Date Recorded Housing 1 07/07/2023 Safety and Environment Answer Date Murphy rded Safety 1 07/07/2023 Utilities Answer Date Recorded Utilities 1 07/07/2023 Employment Answer Date Recorded Stress 0 09/21/2021 Sex and Gender Information Value Date Recorded Sex Assigned at Male 04/18/2017 11:41 AM PDT Legal Sex Male 11:36 AM PDT Gender Identity Male 04/18/2017 11:41 AM PDT Sexual Orientation Straight 04/18/2017 11 :41 AM PDT Occupation Industry Job Start Date Job End Date unemployed Not on file Not on file Not on file Last Filed Vital Signs Vital Sign Reading Time Taken Comments Blood Pressure 130/80 07/18/2024 2:25 PM EST Pulse 97 07/18/2024 2:25 PM EST Temperature 37.1 ??C (98.7 ??F) 07/18/2024 2:25 PM ES T Respiratory Rate 16 07/18/2024 2:25 PM EST Oxygen Saturation 98% 07/18/2024 2:25 PM EST Inhaled Oxygen Concentration - - Weight 76.2 kg (168 lb) 07/18/2024 2:25 PM EST Height 180.3 cm (5' 11 ) 07/18/2024 2:25 PM EST Body Mass Index 23.43 07/18/2024 2:25 PM EST Plan of Treatment Upcoming Encounters Date Type Department Care Team (Late st Contact Info) Description 09/14/2024 2:00 PM EDT Office Visit [facility] [address] [place] [phone] Rene Castro, PharmD [address] [place] [address] 09/20/2024 2:40 PM EDT Office Visit [facility] [address] [place] [phone] José Miguel Vega PA [address] [place] [address] Health Maintenance Due Date Last Done Comments CT Colonography 09/20/1995 Colonoscopy 09/20/1995 Fecal DNA 09/20/1995 Flexible Sigmoidoscopy 09/20/1995 Retinopathy Screening 11/18/2016 11/19/2015 Depression Annual Screen 07/04/2024 024, 09/04/2019, 07/19/2018, Additional history exists Diabetes HbA1c 07/19/2024 04/18/2024, 11/02, 05/25/2023, Additional history exists Dental Prophy 07/28/2024 01/24/2024, 02/01, 10/22/2022, Additional history exists Diabetes Foot Exam 11/29/2024 11/30/2023, 0 07/07/2023, 06/10/2022, Additional history exists Diabetes Microalbumin (w/Creatinine) 11/29/2024 11/30/2023, 07/27/2022, 03/20/2013 Lipid Screening 11/29/2024 11/30/2023, 0601/2022, 09/04/2020, Additional history exists Serum Creatinine 11/29/2024 11/30/2023, 02/2023, 12/08/2021, Additional history exists Tobacco Screening 01/12/2025 01/13/2024, , 09/03/2021, Additional history exists Dental BW 01/25/2025 01/24/2024, 10/03, 11/25/2021 Dental Examination 01/25/2025 01/24/2024, 0 10/22/2022, 11/25/2021 Dental Perio Charting 01/25/2025 01/24/2024 Falls Prevention 02/22/2025 02/23/2024, 08/12/2021 Medicare Annual Wellness Visit 02/22/2025 0 02/23/2024, 09/03/2021, 09/04/2020, Additional history exists Dental FMX/Pano 01/09/2028 01/06/2023, 11/25/2021 Imm-DTaP/Tdap/Td (3 - Td or Tdap) 07/19/2028 019, 12/24/2014 Colorectal Cancer Screening 05/10/2029 FIT/gFOBT 05/10/2029 05/10/2019 (Avelina henry by Outside Provider) Imm-Pneumococcal 65+ Completed 09/04/2019, 06/03/2016, 07/09/2014 Imm-Zoster, Recombinant Completed 04/22/2022, 12/08 Hepatitis C Screening Completed 11/30/2023 , 11/11/2022, 04/12/2019, Additional history exists [id number] Completed 03/26/2024, 11/02, 04/22/2022, Additional history exists Imm-Influenza Completed 03/26/2024, 10/2022, 04/22/2022, Additional history exists Alcohol and Drug Screen Completed 07/18/19, 07/07/2023, 09/08/2022, Additional history exists Procedures Procedure Name Priority Date/Time Associated Diagnosis Comments GLUCOSE, BLOOD BY GLUCOSE MONITORING DEVICE (CLIA WAIVED)POCT Routine 07/18/2024 3:22 PM EST Type 2 diabetes mellitus with hyperglycemia, with long-term current use of insulin ([facility]) GLUCOSE, BLOOD BY GLUCOSE MONITORING DEVICE (CLIA WAIVED)POCT Routine 07/18/2024 2:36 PM EST Type 2 diabetes mellitus with hyperglycemia, with long-term current use of insulin ([facility]) HGBA1C W/MPG Routine 04/18/2024 1:39 PM EDT Type 2 diabetes mellitus with hyperglycemia, with long-term current use of insulin ([facility]) Primary open angle glaucoma (POAG) of both eyes, mild stage Diabetic polyneuropathy associated with type 2 diabetes mellitus ([facility]) Preop general physical exam COMP PERIODONTAL EVALUATION - NEW/EST PATIENT Routine 01/24/2024 3:00 PM EDT Caries BITEWINGS - FOUR RADIOGRAPHIC IMAGES Routine 01/24/2024 3:00 PM EDT Caries PROPHYLAXIS - ADULT Routine 01/24/2024 3 :00 PM EDT [facility]ies PERIODIC ORAL EVALUATION ESTABLISHED PATIENT Routine 01/24/2024 3:00 PM EDT [facility]ies HEPATITIS C AB W/RFLX HCV RNA, QT, RT PCR Routine 11/30/2023 3:00 PM EDT Type 2 diabetes mellitus with hyperglycemia, with long-term current use of insulin ([facility]) Dyslipidemia Diabetic foot ([facility]) Primary open angle glaucoma (POAG) of both eyes, mild stage LIPID PANEL Routine 11/30/2023 3:00 PM EDT Type 2 diabetes mellitus with hyperglycemia, with long-term current use of insulin ([facility]) Dyslipidemia COMPREHENSIVE METABOLIC PANEL Routine 11/30/2023 2:57 PM EDT Type 2 diabetes mellitus with hyperglycemia, with long-term current use of insulin ([facility]) MICROALBUMIN/CREATINI NE RATIO, URINE, RANDOM Routine 11/30/2023 2:57 PM EDT Type 2 diabetes mellitus with hyperglycemia, with long-term current use of insulin ([facility]) PANORAMIC RADIOGRAPHIC IMAGE Routine 01/06/2023 2:00 PM EDT Caries of pulp from Last 3 Months or Most Recently Relevant to Health Maintenance Results * GLUCOSE, BLOOD BY GLUCOSE MONITORING DEVICE (CLIA WAIVED)POCT (07/18/2024 3:22 PM EST) Only the most recent of2 resultswithin the time period is included. [facility] GLUCOSE HHH 70 - 100 mg/dL [facility] BACK OFFICE POCT Capillary Blood Blood / Unknown 3:22 PM EST Rene Matthew PharmD LAB - BLOOD DRAW Final Resu lt Performing Organization Address [place]/ZIP Co de Phone Number [facility] POCT * (ABNORMAL) HGBA1C W/MPG (04/18/2024 1:39 PM EDT) [facility] HEMOGLOBIN A1C >14.0(H) <5.7 % of total Hgb [employer] Comment: Verified by repeat analysis. For someone without known diabetes, a hemoglobin A1c value of 6.5% or greater indicates that they may have diabetes and this should be confirmed with a follow-up test. For someone with known diabetes, a value <7% indicates that their diabetes is well controlled and a value greater than or equal to 7% indicates suboptimal control. A1c targets should be individualized based on duration of diabetes, age, comorbid conditions, and other considerations. Currently, no consensus exists regarding use of hemoglobin A1c for diagnosis of diabetes for children. ?? MEAN PLASMA GLUCOSE See Note [employer] Comment: MPG cannot be calculated. Hemoglobin A1c result exceeds the linearity of the assay. Blood Blood / Unknown 04/18/2024 1 :39 PM EDT 04/18/2024 1:41 PM EDT José Miguel MARINA LAB - BLOOD DRAW Edited Result - Final [employer] [address] [place] [id number], [employer] [address] [phone] * HEPATITIS C AB W/RFLX HCV RNA, QT, RT PCR (11/30/2023 3:00 PM EDT) [facility] HEPATITIS C ANTIBODY NON-REACT PRETTY NON-REACT PRETTY [employer] Comment: HCV antibody was non-reactive. There is no laboratory evidence of HCV infection. In most cases, no further action is required. However, if recent HCV exposure is suspected, a test for HCV RNA (test code 41948) is suggested. For additional information please refer to http://[employer].AirSage/faq/DGH18h8 (This link is being provided for informational/ educational purposes only.) Blood Blood / Unknown 11/30/2023 3 :00 PM EDT 11/30/2023 3:00 PM EDT José Miguel MARINA LAB - BLOOD DRAW Edited Result - Final [employer] [address] [address], [employer] [address] [phone] * (ABNORMAL) LIPID PANEL (11/30/2023 3:00 PM EDT) Pathologist [facility] CHOLESTEROL, TOTAL 182 <200 mg/dL [employer] [facility] HDL CHOLESTEROL 50 > OR = 40 mg/dL [employer] TRIGLYCERIDES 152(H) <150 mg/dL [employer] LDL-CHOLESTEROL 105(H) 99 mg/dL (calc) [employer] Comment: Reference range: <100 Desirable range <100 mg/dL for primary prevention; ?? <70 mg/dL for patients with CHD or diabetic patients with > or = 2 CHD risk factors. LDL-C is now calculated using the Fortunato-Jared calculation, which is a validated novel method providing better accuracy than the Friedewald equation in the estimation of LDL-C. Fortunato [place] et al. [place]. 2013;310(19): 1450-1729 (http://education.Symplified/faq/MOY832) CHOL/HDLC RATIO 3.6 <5.0 (calc) [employer] NON-HDL CHOLESTEROL 132(H) <130 mg/dL (calc) [employer] Comment: For patients with diabetes plus 1 major ASCVD risk factor, treating to a non-HDL-C goal of <100 mg/dL (LDL-C of <70 mg/dL) is considered a therapeutic option. Blood Blood / Unknown 11/30/2023 3 :00 PM EDT 11/30/2023 3:00 PM EDT José Miguel MARINA LAB - BLOOD DRAW Final Result Performing Organization Address [place] de Phone Number [employer] [address] [address], [employer] [address] [address] * MICROALBUMIN/CREATININE RATIO, URINE, RANDOM (11/30/2023 2:57 PM EDT) CREATININE, RANDOM URINE 25 20 - 320 mg/dL [employer] [facility] MICROALBUMIN <0.2 mg/dL [facility] [employer] Comment: Reference Range Not established MICROALBUMIN/CREA TININE RATIO, RANDOM URINE NOTE <30 [facility] [employer] [facility] Comment: NOTE: The urine albumin value is less than 0.2 mg/dL therefore we are unable to calculate excretion and/or creatinine ratio. The ADA defines abnormalities in albumin excretion as follows: Albuminuria Category ?Result (mg/g creatinine) Normal to Mildly increased ?? <30 Moderately increased ? 30-299 Severely increased ? > OR = 300 The ADA recommends that at least two of three specimens collected within a 3-6 month period be abnormal before considering a patient to be within a diagnostic category. Urine Urine specimen / Unknown 11/30/2023 2:57 PM EDT 11/30/2023 2:57 PM EDT Haydee Garcia PA-C LAB - NO BLOOD DRAW Final R esult Performing Organization Address [place]/[facility]/ZIP Co de Phone Number [employer] [address] [address], [employer] [address] [address] * (ABNORMAL) COMPREHENSIVE METABOLIC PANEL (11/30/2023 2:57 PM EDT) GLUCOSE 588(H) 65 - 99 mg/dL [employer] [facility] Comment: THE ABOVE TEST WAS PERFORMED; HOWEVER, THE QUANTITY WAS NOT SUFFICIENT FOR RESULT VERIFICATION. ? Fasting reference interval For someone without known diabetes, a glucose value >125 mg/dL indicates that they may have diabetes and this should be confirmed with a follow-up test. UREA NITROGEN (BUN) 18 7 - 25 mg/dL [employer] [facility] CREATININE (blood) 1.01 0.70 - 1.28 mg/dL [employer] [facility] EGFR 79 > OR = 60 mL/min/1. 73m2 [employer] [facility] BUN/CREATININE RATIO SEE NOTE: [employer] [facility] Comment: ?? Not Reported: BUN and Creatinine are within ?? reference range. ? SODIUM 127(L) 135 - 146 mmol/L [employer] [facility] POTASSIUM 4.6 3.5 - 5.3 mmol/L [employer] [facility] CHLORIDE 94(L) 98 - 110 mmol/L [employer] [facility] CARBON DIOXIDE 25 20 - 32 mmol/L [employer] [facility] CALCIUM 9.4 8.6 - 10.3 mg/dL [employer] [facility] PROTEIN, TOTAL 6.6 6.1 - 8.1 g/dL [employer] [facility] ALBUMIN 4.0 3.6 - 5.1 g/dL [employer] [facility] GLOBULIN 2.6 1.9 - 3.7 g/dL (calc) [employer] [facility] ALBUMIN/GLOBULI N RATIO 1.5 1.0 - 2.5 (calc) [employer] [facility] BILIRUBIN, TOTAL 0.4 0.2 - 1.2 mg/dL [employer] [facility] ALKALINE PHOSPHATASE 117 35 - 144 U/L [employer] [facility] AST 14 10 - 35 U/L [employer] [facility] ALT 14 9 - 46 U/L [employer] [facility] Blood Blood / Unknown 11/30/2023 2 :57 PM EDT 11/30/2023 2:57 PM EDT us Haydee Garcia PA-C LAB - BLOOD DRAW Final Resu lt [employer] [facility] [address] [address], [employer] [facility] [address] [place] [address] from Last 3 Months or Most Recently Relevant to Health Maintenance Insurance MEDICARE - [place] [facility] - [place] - [place] Care Teams Risk Control Director Relationship Specialty Start Date End Date José Miguel Vega PA [address] [place] [address] PCP - General Internal Medicine 05/10/16
--- OUTSIDE RECORDS SUMMARY | 2024-09-06 18:25 | XMS_ITS | Clinical Summary ---
Author Organization [facility] it Address [address] [place] [address] Care Team Providers Care Wrecking Mechanic Name Role Phone Mya Abreu MD Primary Care Provider [phone] Surgical History Surgery Date Site/Laterality Comments COLONOSCOPY 2008 PROCEDURE: HISTORICAL COLONOSCOPY; COMMENT: negative COLONOSCOPY 09/03/2019 PROCEDURE: HISTORICAL COLONOSCOPY; COMMENT: Diverticulosis, otherwise normal. Family History Medical History Relation Name Comments Colon cancer Neg Hx Relation Name Status Comments Father (Age 87) Mother Alive Social History Tobacco Use Types Packs/Day Years Used Date Smoking Tobacco: Former Cigarettes Q uit: 07/04/1994 Smokeless Tobacco: Former Alcohol Use Standard Drinks/Week Comments No 0 (1 standard drink = 0.6 oz pur e alcohol) Sex and Gender Information Value Date Recorded Sex Assigned at Not on file Legal Sex Male 8:08 AM EST Gender Identity Not on file Sexual Orientation Not on file Obstetrics History Plan of Treatment Health Maintenance Due Date Last Done Comments DTaP,Tdap,and Td Vaccines (1 - Tdap) 1969 Pneumococcal Vaccine: 50+ Ye ars (1 of 1 - PCV) 2000 Zoster Vaccines (1 of 2) 2000 COVID-19 Vaccine ( - 2023-2 5 season) 2024 Influenza Vaccine (#1) 2024 RSV Immunization Patients 60 + Years Old (1 - 1-dose 75+ series) 2025 HIB Vaccines Aged Out No longer eligi ble based on patient's age to complete this topic HPV Vaccines Aged Out No longer eligi ble based on patient's age to complete this topic Hepatitis A Vaccines Aged Out No long er eligible based on patient's age to complete this topic Hepatitis B Vaccines Aged Out No long er eligible based on patient's age to complete this topic IPV Vaccines Aged Out No longer eligi ble based on patient's age to complete this topic MMR Vaccines Aged Out No longer eligi ble based on patient's age to complete this topic Meningococcal ACWY Vaccine Aged Out N o longer eligible based on patient's age to complete this topic Meningococcal B Vacine Aged Out No lo nger eligible based on patient's age to complete this topic RSV Immunization Patients Un matthew 20 months Aged Out No longer eligible b ased on patient's age to complete this topic Varicella Vaccines Aged Out No longer eligible based on patient's age to complete this topic Care Teams Wrecking Mechanic Relationship Specialty Start Date End Date Mya Abreu MD [address] [place] PCP - General 12/23/13
--- OUTSIDE RECORDS SUMMARY | 2024-09-06 18:26 | XMS_ITS | Data Portability ---
Author Organization [place] - [facility], Allergy Address [address] [place] [address] [place] [phone] Assessment Encounter Date Assessment Date Assessment LastModified by Organization Details LastModified Time 07/10/2024 07/10/2024 Patient has mixe d sleep apnea and has some concern about claustrophobia for his mask. Recommend he continue to work with sleep center as ultimately he will be best managed by BiPAP. He had secondary concern of chronic tinnitus. Right-sided cerumen was removed and we will make arrangements for audiometric testing. [email or web address] Not available 07/10/2024 15:10:47 Plan of Treatment Reminders Order Date Submit Date Provider Last Modified By Organization Details Last Modified Time Details Appointments Hearing Test 2024 03:00P M Hearing Test Not available Not available Not available Establish ed 15 2024 03:30P M MARY GARNER PA-C Not available Not available Not available Lab None recorded. Referral None recorded. Procedures None recorded. Surgeries None recorded. Imaging None recorded. Medication Orders None recorded. Patient TargetsNo targets recorded. Patient InstructionsNo instructions recorded. Reason for Referral None Reported. Problems Name Problem SNOMED Code Status Onset Date Resolution Date Notes Provider Name and Address Organization Details Recorded Time Mixed sleep apnea 699615559 Active 2023 JUDE QUINTERO MD [address] [facility] [address], [place], [address], [facility] - [facility] 4 22:19:50 Impacted cerumen in right ear 78013277594705 03 Active 2024 JUDE QUINTERO MD [address] [facility] [address], [place], [address], [facility] - [facility] 5 15:09:27 Bilateral tinnitus 3658159723760 Active 2024 JUDE QUINTERO MD [address] [facility] [address], [place], [address], [facility] 15:09:57 Problem Notes None recorded. Procedures Surgical History Date Name Laterality Status Provider Name and Address Organization Details Recorded Time 07/10/2024 Wax_DP completed JUDE QUINTERO MD [address] [facility] [address], [place], [address], [facility] 07/10/2024 15:09:16 Imaging Results None recorded. Procedure Notes None recorded. Medical Equipment None Reported. Allergies No known drug allergies Medications Name Sig Start Date Stop Date Status Note LastModified by Organization Details LastModified Time latanoprost 0.005 % eye drops INSTILL 1 DROP INTO BOTH EYES NIGHTLY AT BEDTIME active Not Available Not Available No t Available atorvastatin 80 mg tablet TAKE ONE TABLET BY MOUTH ONCE daily active Not Available Not Available No t Available doxycycline hyclate 100 mg capsule TAKE ONE CAPSULE BY MOUTH 2 TIMES A DAY FOR 7 DAYS 07/10 completed Not Available Not Available Not Available FreeStyle Lancets 28 gauge USE TO test blood sugar THREE TIMES DAILY active Not Available Not Available No t Available prednisone 20 mg tablet 07/10 completed Not Available Not Available Not Available ketorolac 0.5 % eye drops INSTILL 1 DROP INTO LEFT EYE 3 TIMES A DAY DIRECTED . active Not Available Not Available No t Available cephalexin 500 mg capsule TAKE 1 CAPSULE BY MOUTH EVERY 6 HOURS FOR 7 DAYS 07/10 completed Not Available Not Available Not Available metformin 1,000 mg tablet TAKE ONE TABLET BY MOUTH TWICE DAILY with a meal 07/10 completed Not Available Not Available Not Available doxycycline hyclate 100 mg tablet TAKE 1 TABLET BY MOUTH TWICE A DAY FOR 7 DAYS 07/10 completed Not Available Not Available Not Available dorzolamide 2 % eye drops INSTILL 1 DROP INTO BOTH EYES TWICE A DAY active Not Available Not Available No t Available FreeStyle Lite Meter kit active Not Available Not Available Not Available FreeStyle Lite Strips Use to test blood sugar once daily active Not Available Not Available No t Available Lantus Solostar U-100 Insulin 100 unit/mL (3 mL) subcutaneous pen 07/10 completed Not Available Not Available Not Available Humalog KwikPen (U-100) Insulin 100 unit/mL subcutaneous 07/10 completed Not Available Not Available Not Available Easy Touch Alcohol Prep Pads USE TO clean finger THREE TIMES DAILY active Not Available Not Available No t Available BD Ultra-Fine Micro Pen Needle 32 gauge x 1/4 USE 4 TIMES A DAY TO INJECT INSULIN active Not Available Not Available No t Available Vitals Date Recorded Body height Body mass index (BMI) Body weight Provider Name and Address Organization Details Last Updated DateTime 07/10/2024 182.88 cm 22.4 kg/m2 92617.74 g Sayra Davenport [place] - [facility] 07/10/2024 14:42:51 Social History None recorded. Functional Status None recorded. Mental Status None recorded. Family History Nothing Reported. Medical History Condition Response Anemia Y Anxiety Y Hypertension Y Depression Y Past Encounters Encounter ID Performer Location Encounter Start Date Encounter Closed Date Diagnosis/Indication Diagnosis SNOMED-CT Code Diagnosis ICD10 Code Diagnosis Note [id number] JUDE QUINTERO MD [facility] [address] [address] 07/10/2024 14:21:14 07/10/2024 15:11:20 Mixed sleep apnea 276364532 G47.39 Impacted c erumen in right ear [id number] 492424 H61.21 Ears were meticulous ly cleaned RIGHT today with fine pics, curettes and/or suction. Patient is encouraged to avoid Q-tips in their ears relative to packing the wax in tighter. They may use the corner of their bath towel to gently clean the nooks and crannies of the external ears as needed. Yearly visits or as needed are recommende d. Bilateral tinnitus [address]09 102 H93.13 Health Concerns Section Related Observation LastModified by Organization Detai ls LastModified Time None Recorded Concern Status LastModified by Organization Details LastModified Time None Recorded Advance Directives Directive None Recorded Payers Encounter Date Sequence Insurance Name Policy Number Policy Waller Covered Member ID Waller Member ID Guarantor Name 07/10/2024 1 [place] B-[place]: [employer] Dm A Corey [id number] Dm Corey Notes Date Note Type Note Provider Name and Address Organization Details Recorded Time 07/10/2024 text/html Severe mixed sle ep apnea04/14/2023 Home PSG at [facility] [place] 26AHI 48.7Central and mixed events 324/528 = 61%CPAP trial delayed secondary to difficulty receiving equipmentgets some claustrophobia regarding masksPatient undergoing evaluation for significant weight loss secondary concern of 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
== END 2024-09-06 16:20 | disposition home or self-care (01) ==
PROVIDERS: PCP Physician Assistant; Visit Provider Urology
DX: Z13.9 Encounter for screening, unspecified (principal)

== ENCOUNTER → 2024-09-06 14:55 | Outpatient (BNVA) | payer SELFPAY | PROVIDERS: PCP Physician Assistant; Visit Provider Urology | DX: N52.9 Male erectile dysfunction, unspecified (principal); N40.0 Benign prostatic hyperplasia without lower urinary tract symptoms; E11.9 Type 2 diabetes mellitus without complications | CPT/HCPCS: 51798; 81003; 99202 ==

== ENCOUNTER 2024-09-17 13:12 | Outpatient (AMB) | payer MEDICARE, SELFPAY ==
--- NOTE | 2024-09-17 13:12 | A.OFFVIS_ITS ---
Intake Visit Reasons: med review(tadalafil) Intake Note: Patient presents to office today via telehealth-video call for a med review (Tadalafil) Urology Medication:Tadalafil Antibiotic Allergy:NONE Blood Thinner:NONE TODAY'S PVR:311ML'S Helper Driver Required: No Allergies No Known Allergies Allergy (Verified 09/17/24 13:16) HPI Comments Details: 09/17/24- 73-year-old male presenting with erectile dysfunction. He has been prescribed a low-dose generic Cialis (5 mg) to aid in achieving and maintaining erections.. His sexual health concerns extend to questions about sperm production, possibly due to age-related changes, prostate function, and diabetes-related retrograde ejaculation. The patient indicates a past stable sexual function and anticipates a relationship in the future. His significant medical history includes diabetes mellitus, currently unmanaged, which has resulted in considerable weight loss. The patient reports urinary frequency, likely related to his diabetes, with ongoing efforts to control blood glucose levels through lifestyle management and previous medication. Additionally, he experiences episodes potentially consistent with retrograde ejaculation. Frequent voiding is noted, exacerbated by fluid intake and diabetes, with a history of attempts at managing erectile dysfunction and urinary issues through pharmaceutical means. The patient is also experiencing gastrointestinal issues post-retreat, unrelated to the primary urological concerns. discussed that Uncontrolled diabetes can damage nerves, including those involved in the ejaculatory process.?This nerve damage can lead to retrograde ejaculation, 09/06/24--Dm is a 73-year-old male presenting with erectile dysfunction. He reports a complete absence of erections and a lack of semen production, I discussed with the patient the potential contributor of uncontrolled diabetes to his erectile dysfunction. I informed him that his prostate health could also be influencing his symptoms. Discussed the necessity of avoiding sexual activity 48 hours before the PSA test. He agreed to the proposed management plan. [facility] Medical History Cellulitis and abscess of lower extremity Left bundle branch block (LBBB) Slow transit constipation Gall stones Herpes DM w/o complication type II Abdominal pain in male Hip pain BPH (benign prostatic hyperplasia) H/O left bundle branch block DEB (obstructive sleep apnea) Obesity Osteoarthritis of both knees Neck pain Low back pain Dyslipidemia Diabetes mellitus Review of Systems Const All systems reviewed & are unremarkable except as noted in HPI and below Reports no additional complaints Eyes Reports no additional complaints ENT Reports no additional complaints Card Reports no additional complaints Resp Reports no additional complaints GI Reports no additional complaints Reports as per HPI Musc Reports no additional complaints Skin/Breast Reports system reviewed and no additional complaints, except as documented Neuro Reports no additional complaints Psych Reports no additional complaints Endo Reports no additional complaints Nacho/Lymph Reports no additional complaints Aller/Immun Reports no additional complaints Telehealth Telehealth Telehealth Platform: [employer] Location of provider rendering services: practice address Location of patient: address on file Patient Identification confirmed using: Name, : Yes Telehealth method: voice only Patient verbally consented to treatment: Yes Patient verbally consented to billing insurance company: Yes Patient informed of any privacy concerns related to visit: Yes Minutes spent on Phone/Video with Pt.: 16 Assessment & Plan Assessment & Plan (1) Erectile disorder: Code(s): N52.9 - Male erectile dysfunction, unspecified Category: Medical (2) BPH (benign prostatic hyperplasia): Code(s): N40.0 - Benign prostatic hyperplasia without lower urinary tract symptoms Category: Medical (3) Diabetes mellitus: Code(s): E11.9 - Type 2 diabetes mellitus without complications Category: Medical Plan Plan For erectile dysfunction, the patient will continue with low-dose Cialis, aimed to enhance erectile function. Uncontrolled diabetes may contribute to urinary his requency and retrograde ejaculation. Diabetes control is important. Renal Ultrasound ordered. Patient Instructions: Patient was informed and verbally consented to the use of an ambient scribe for clinic note documentation during this visit. Scribe Plan - Not visible on output: Patient was informed and verbally consented to the use of an ambient scribe for clinic note documentation during this visit. Coding Level of Care Code Tele Est Pt Level 4 (19714) Diagnoses Erectile disorder N52.9 BPH (benign prostatic hyperplasia) N40.0 Diabetes mellitus E11.9
== END 2024-09-17 14:51 | disposition home or self-care (01) ==
LOC: HO.HUSH 13:12
PROVIDERS: PCP Physician Assistant; Visit Provider Urology
DX: N52.9 Male erectile dysfunction, unspecified (principal); N40.0 Benign prostatic hyperplasia without lower urinary tract symptoms; E11.9 Type 2 diabetes mellitus without complications
CPT/HCPCS: 99214

== ENCOUNTER 2024-11-20 14:08 | Outpatient (REF) | payer MEDICARE, SELFPAY ==
--- NOTE | ~2024-11-20 | US_ITS ---
EXAMINATION: US RETROPERITONEAL COMPLETE (RENAL) CLINICAL INFORMATION: Retrograde ejaculation. Erectil dysfunction.. COMPARISON: None available. TECHNIQUE: Real-time imaging of the kidneys and bladder. FINDINGS: RIGHT KIDNEY: 13 x 5 x 6 cm (SAG x AP x TRV). Volume: 207 cc. Normal echotexture. Normal renal cortical thickness. No gross solid or cystic lesion. Prominent pelvicalyceal system. LEFT KIDNEY: 13 x 6 x 6 cm (SAG x AP x TRV). Volume: 232 cc. Normal echotexture. No solid or cystic lesion. Prominent pelvicalyceal system and extending into the proximal ureter. BLADDER: Fluid-filled. Bilateral ureteral jets are demonstrated. Prevoid bladder volume is 772 mL. Postvoid bladder volume is 620 mL. Prostate gland measures 5 x 4 x 6 cm and volume: 66 cc. US/US retroperitoneal comp IMPRESSION: Hydronephrosis, mild to moderate left greater than the right side. 620 cc retained urine volume in a post void image. . Electronically signed by: Mahendra Tuttle MD 11/20/2024 03:51 PM EDT
--- OUTSIDE RECORDS SUMMARY | 2024-11-20 15:32 | XMS_ITS | Clinical Summary ---
Author Organization [facility] Address [address] [place] [address] Phone Care Team Providers Care Merchandise Presentation Manager Name Role Phone José Miguel Vega Primary Care Provider [phone] Encounters Date Type Department Care Team Description 10/29/2024 Telephone [facility] [address] [place] [address] José Miguel Vega PA Referral (Received routine paper referral - October) from Last 3 Months Surgical History Surgery Date Site/Laterality Comments COLONOSCOPY [...] on file Obstetrics History Plan of Treatment Upcoming Encounters Date Type Department Care Team (Late st Contact Info) Description 04/10/2025 1:30 PM EDT Office Visit [facility] [address] [place] [address] Bao Navarro MD [address] [place] [address] [address] [place] [address] Health Maintenance Due Date Last Done Comments DTaP,Tdap,and Td Vaccines (1 - Tdap) 1969 Pneumococcal Vaccine: 50+ Ye ars (1 of 1 - PCV) 2000 Zoster Vaccines (1 of 2) 2000 COVID-19 Vaccine (1 - 2023-2 5 season) 2024 Abdominal Aortic Aneurysm (A AA) Screen 10/30/2024 Cholesterol Screening (Lipid Panel) 10/30/2024 Colorectal Cancer Screening: Colonoscopy 10/30/2024 Depression Screening 10/30/2024 Falls Risk Assessment 10/30/2024 Hepatitis C Screening 10/30/2024 Medicare Annual Wellness Visit 10/30/2024 Social Influencers of Health Screening 10/30/2024 Influenza Vaccine (Season Ended) 2025 RSV Immunization Adult Patie nts (1 - 1-dose 75+ series) 2025 HIB [...] age to complete this topic Meningococcal B Vaccine Aged Out No l onger eligible based on patient's age to complete this topic RSV Immunization Patients Un matthew 20 months Aged Out No longer eligible b ased on patient's age to complete this topic Varicella Vaccines Aged Out No longer eligible based on patient's age to complete this topic Insurance [place] [address] Care Teams Merchandise Presentation Manager Relationship Specialty Start Date End Date José Miguel Vega PA [address] [place] [address] PCP - General Physician Senior Center Manager 10/30/24
--- OUTSIDE RECORDS SUMMARY | 2024-11-20 15:32 | XMS_ITS | Clinical Summary ---
Author Organization [facility] Address [address] [place] [address] Care Team Providers Care Beating Machine Operator Name Role Phone José Miguel Vega Primary Care Provider [phone] Source Comments PLEASE NOTE, if this patient is a minor, it may be UNLAWFUL to discuss sensitive information that is contained in these records (such as FAMILY PLANNING, MENTAL HEALTH or SUBSTANCE ABUSE) with the minor patient's parent or other person without the patient's specific authorization.[facility] Allergies No known active allergies Medications fuabv-vt-1-dha-ep c-yayvqaq-vry (KRILL OIL) [id number] mg cap Take by mouth 021 Active [...] hyperglycemia, with long-term current use of insulin ([facility]),Urinary incontinence, unspecified type Use one brief twice daily for urinary incontinence. 120 Each 11 023 Active MISCELLANEOUS MEDICAL SUPPLY MISC Patient [...] complication, without long-term current use of insulin ([facility]) Use to test blood sugar once daily 100 Each Active ketorolac (ACULAR) 0.5 % ophthalmic solution Authorized by: JENNA BLACKMON Active flash glucose scanning reader miscIndications:T ype 2 diabetes mellitus with hyperglycemia, with long-term current use of insulin ([facility]) Use to test blood glucose at least 3 times daily - Freestyle Viviane 2 reader. 1 Each Active flash glucose sensor kitIndications:Ty pe 2 diabetes mellitus with hyperglycemia, with long-term current use of insulin ([facility]) Apply sensor to back of upper arm and change every 14 days. Use to test blood glucose at least 3 times daily (Freestyle Viviane 2 sensor). 2 Kit Active lancets 28 gaugeIndications: Type 2 diabetes mellitus with hyperglycemia, with long-term current use of insulin ([facility]) Use to check blood sugar up to 3 times daily (Freestyle Lancets) 100 Each 11 Active alcohol swabsIndications: Type 2 diabetes mellitus with hyperglycemia, with long-term current use of insulin ([facility]) Use to clean finger to test blood sugar up to 3 times daily. 100 Each 11 Active blood sugar diagnostic (BLOOD GLUCOSE TEST) stripsIndications :Type 2 diabetes mellitus with hyperglycemia, with long-term current use of insulin ([facility]) Use to test blood glucose at least 3 times daily. (Freestyle Precision Damien) 100 Each 5 Active atorvastatin (LIPITOR) 80 mg tabletIndications :Type 2 diabetes mellitus with hyperglycemia, with long-term current use of insulin ([facility]),Medicat ion refill Take 1 Tablet by mouth once daily 90 Tablet 3 024 Active dorzolamide (TRUSOPT) 2 % ophthalmic solution Active glycerin, adult, suppository Place 1 Suppository rectally as needed for constipation 30 Suppository 1 Active insulin lispro 100 unit/mL injection penIndications:Ty pe 2 diabetes mellitus with hyperglycemia, with long-term current use of insulin ([facility]) Below 100 - no insulin, 101 [...] hyperglycemia, with long-term current use of insulin ([facility]),Uncontr olled type 2 diabetes mellitus with hyperglycemia ([facility]) Inject 30 units hs subcutaneously 15 mL 3 Active SURE COMFORT PEN NEEDLE 32 gauge x 1/4 ndle Use 4 times daily to inject insulin 100 Each 11 Active dapagliflozin propanediol (FARXIGA) 5 mg tabIndications:Ty pe 2 diabetes mellitus without complication, without long-term current use of insulin ([facility]) Take 1 Tablet by mouth every morning 30 Tablet Active cholecalciferol, vitamin D3, (VITAMIN D3) 1,250 mcg (50,000 unit) capsuleIndication s:Vitamin D deficiency TAKE ONE CAPSULE BY MOUTH ONCE A WEEK 12 Capsule 5 Active metFORMIN (GLUCOPHAGE) 1,000 mg tabletIndications :Type 2 diabetes mellitus with hyperglycemia, with long-term current use of insulin ([facility]),Diabeti c polyneuropathy associated with type 2 diabetes mellitus ([facility]) Take 1 Tablet by mouth 2 (two) times daily with a meal 60 Tablet Active latanoprost (XALATAN) 0.005 % ophthalmic solutionIndicatio ns:ocular hypertension INSTILL ONE DROP INTO BOTH EYES NIGHTLY AT BEDTIME Indications: increased pressure in the eye 10 mL 2 Active tadalafiL (CIALIS) 5 mg tablet Take 5 mg by mouth once daily 025 Active Active Problems Patient Care Coordination No [...] adjustments PRN. Problem Noted Date Diagnosed Date Hx of medication noncompliance 10/09/2024 Disease due to severe acute respiratory syndrome coronavirus 2 (SARS-CoV-2) 08/14/2023 Overview (02/23/2024): Problem added by Discern Expert Elevated cholesterol 08/12/2021 Dysphagia 08/12/2021 Chronic cough 10/15/2019 Essential hypertension 06/19/2019 Closed fracture of distal en d of right fibula with routine healing 08/28/2018 Overview (10/02/2018): 08/25/18 - [facility] ED - S/P slip and fall with right ankle pain. Xray reveals - Oblique minimally displaced fracture through the distal fibula w/ associated swelling. Patient set to follow up with [facility]. Cellulitis and abscess of lower extremity 2015 Overview (04/27/2016): Hospitalized about 2.5 weeks ago at [facility], April 09 for cellulitis from Tuesday night [...] hyperglycemia, with long-term current use of insulin ([facility]) 07/31/2013 Overview (06/19/2019): 03/20/19 - Latest [...] medication adjustments PRN. - eye doctor at [place]- 11/19/15- No retinopathy -[address] [place] [address] jay guy. -[place] [facility] - dr. federica pan -[facility]. - Abdominal pain in male patient [...] BPH (benign prostatic hyperplasia) 03/25/2013 Diabetes mellitus ([facility]) 03/20/2013 Dyslipidemia 03/20/2013 Low back pain 03/20/2013 Neck pain 03/20/2013 Resolved Problems Problem Noted Date Diagnosed Date Resolved Date Acute cystitis with hematuria 06/18/2015 02/20/2021 Knee pain, bilateral 07/31/2013 014 Abdominal pain 07/03/2013 08/06/2013 Vitamin D deficiency 01/25/2013 013 Encounters Date Type Department Care Team Description 10/22/2024 Results Follow-Up [address] [place] [address] Rene Castro, PharmD HGBA1C W/MPG, VITAMIN B12 & FOLATE, GLUCOSE, BLOOD BY GLUCOSE MONITORING DEVICE (CLIA WAIVED)POCT, GLUCOSE, BLOOD BY GLUCOSE MONITORING DEVICE (CLIA WAIVED)POCT 10/18/2024 2:20 PM EDT Office Visit [address] [phone] Rene Castro, PharmD Type 2 diabetes mellitus with hyperglycemia, with long-term current use of insulin ([facility]) (Primary Dx); Medication management 10/18/2024 Interim Notes [address] [phone] José Miguel Vega PA Atypical chest pain (Primary Dx) 10/10/2024 1:00 PM EDT Office Visit [address] [phone] Jeremiah Buckner DDS Caries (Primary Dx) 10/09/2024 9:40 AM EDT Office Visit [address] [phone] Mary Salgado PA Preoperative clearance (Primary Dx); Type 2 diabetes mellitus with hyperglycemia, with long-term current use of insulin ([facility]); H/O left bundle branch block; Essential hypertension; Hx of medication noncompliance 10/09/2024 Interim Notes [address] [address] Tatyana Nicolas 09/20/2024 3:00 PM EDT Office Visit [facility] [address] [place] [phone] Jane Dewitt NP Essential hypertension (Primary Dx); Type 2 diabetes mellitus with hyperglycemia, with long-term current use of insulin ([facility]); Low weight 09/18/2024 1:00 PM EDT Office Visit [facility] [address] [place] [address] Leonidas Laguna RHD Encounter for dental examination (Primary Dx); Caries; Periodontal disease from Last 3 Months Immunizations Immunization Administration Dates Next Due Flu, High Dose, 65y+, Fluzon e High Dose 04/06/2023,04/22/2022,06/16/2021 Flu, Preservative Free 07/19/2018 INFLUENZA, SEASONAL, INJECTABLE 03/27/2016,07/09,03/20/2013 Influenza (FLUZONE), high-do se, trivalent, PF 03/26/2024,05/10/2019 MODERNA COVID-19 VACCINE BIV ALENT, BLUE CAP, 6M+ 04/22/2022 Moderna COVID-19 Vaccine, re d cap blue label, 12+ Primary Series 11/12/2021,06/17/2021,09/20/2020,08/23 PNEUMOCOCCAL CONJUGATE PCV 13 06/03/2016 PNEUMOCOCCAL POLYSACCHARIDE PPV23 (Pneumovax 23) 09/04/2019,07/09/2014 Pfizer COVID-19 (Comirnaty), Mrna, Lnp-s, Pf, James-sucrose, 30 Mcg/0.3 Ml, 12yr+ 03/26/2024,11/30/2023 TDAP 07/19/2018,12/24/2014 ZOSTER VACCINE, RECOMBINANT (SHINGRIX) 2,12/08/2021 Family History Medical History Relation Name Comments Diabetes Father Other (See Comments) Maternal Grandfather Alzheimers Relation Name Status Comments Father Maternal Grandfather Social History Tobacco Use Types Packs/Day Years Used Date Smoking Tobacco: Never Cigarettes Qu it: 07/04/2002 Smokeless Tobacco: Never Quit: 07/04/2004 Tobacco Cessation:Counseling Given: Yes Alcohol Use Standard Drinks/Week Comments No 0 [...] Sign Reading Time Taken Comments Blood Pressure 102/60 10/18/2024 2:32 PM EDT Pulse 86 10/18/2024 2:32 PM EDT Temperature 36.7 ??C (98.1 ??F) 10/18/2024 2:32 PM ED T Respiratory Rate 16 10/18/2024 2:32 PM EDT Oxygen Saturation 98% 10/18/2024 2:32 PM EDT Inhaled Oxygen Concentration - - Weight 80.1 kg (176 lb 9.6 oz) 10/18/2024 2:32 P M EDT Height 180.3 cm (5' 11 ) 10/09/2024 9:56 AM EDT Body Mass Index 24.63 10/09/2024 9:56 AM EDT Plan of Treatment Upcoming Encounters Date Type Department Care Team (Late st Contact Info) Description 12/04/2024 2:20 PM EDT Office Visit [address] [phone] Rene Castro, PharmD [address] [place] [address] 12/05/2024 2:00 PM EDT Office Visit [address] [phone] Jaycee Orona, RN [address] [place] [address] 12/21/2024 3:40 PM EDT Office Visit [address] [place] [address] Jane Dewitt, [place] [address] [place] [address] 03/21/2025 1:00 PM EDT Office [facility] [address] [place] [address] Leonidas Laguna RHD [address] [place], [place] [phone] Health Maintenance Due Date Last Done Comments CT Colonography 09/20/1995 Colonoscopy 09/20/1995 Fecal DNA 09/20/1995 Flexible Sigmoidoscopy 09/20/1995 Retinopathy Screening 11/18/2016 11/19/2015 Depression Annual Screen 07/04/2024 024, 09/04/2019, 07/19/2018, Additional history exists [id number] ( season) 2024 03/26/2024, 11/30/2023, 04/22/2022, Additional history exists Diabetes Foot Exam 11/29/2024 11/30/2023, 0 07/07/2023, 06/10/2022, Additional history exists Lipid Screening 11/29/2024 11/30/2023, 06/0 01/2022, 09/04/2020, Additional history exists Serum Creatinine 11/29/2024 11/30/2023, 02/2023, 12/08/2021, Additional history exists Urine Albumin Creatinine Rat io Screening 11/29/2024 11/30/2023, 11/30/2023, 07/27/2022, Additional history exists Diabetes HbA1c 01/17/2025 10/18/2024, 04/03, 11/30/2023, Additional history exists Dental Perio Charting 01/25/2025 01/24/2024 Annual Wellness (Adult): Ind icated (All Coverage) 02/22/2025 02/23/2024, 09/03/2021, 09/04/2020, Additional history exists Falls Prevention 02/22/2025 02/23/2024, 08/12/2021 Dental Prophy 03/23/2025 09/18/2024, 01/02, 02/11/2023, Additional history exists Dental BW 09/20/2025 09/18/2024, 01/02, 10/22/2022, Additional history exists Dental Examination 09/20/2025 09/18/2024, 0 01/24/2024, 10/22/2022, Additional history exists Tobacco Screening 10/18/2025 10/18/2024, , 09/03/2021, Additional history exists Dental FMX/Pano 01/09/2028 01/06/2023, 11/25/2021 Imm-DTaP/Tdap/Td (3 - Td or Tdap) 07/19/2028 019, 12/24/2014 Colorectal Cancer Screening 05/10/2029 FIT/gFOBT 05/10/2029 05/10/2019 (Avelina henry by Outside Provider) Imm-Pneumococcal 65+ Completed 09/04/2019, 06/03/2016, 07/09/2014 Imm-Zoster, Recombinant Completed 04/22/2022, 12/08 Hepatitis C Screening Completed 11/30/2023 , 11/11/2022, 04/12/2019, Additional history exists Imm-Influenza Completed 03/26/2024, 10/2022, 04/22/2022, Additional history exists Alcohol and Drug Screen Completed 07/18/19, 07/07/2023, 09/08/2022, Additional history exists Procedures Procedure Name Priority Date/Time Associated Diagnosis Comments GLUCOSE, BLOOD BY GLUCOSE MONITORING DEVICE (CLIA WAIVED)POCT Routine 10/18/2024 3:41 PM EDT Type 2 diabetes mellitus with hyperglycemia, with long-term current use of insulin ([facility]) VITAMIN B12 & FOLATE Routine 10/18/2024 3:22 PM EDT Type 2 diabetes mellitus with hyperglycemia, with long-term current use of insulin ([facility]) HGBA1C W/MPG Routine 10/18/2024 3:22 PM EDT Type 2 diabetes mellitus with hyperglycemia, with long-term current use of insulin ([facility]) GLUCOSE, BLOOD BY GLUCOSE MONITORING DEVICE (CLIA WAIVED)POCT Routine 10/18/2024 2:39 PM EDT Type 2 diabetes mellitus with hyperglycemia, with long-term current use of insulin ([facility]) 8 F(V) RESIN-BASED COMPOSITE ONE SURFACE ANTERIOR Routine 10/10/2024 1:00 PM EDT Caries HEALTH HISTORY SCANNED DOCUMENT 10/09/2024 3:00 AM EDT OTHER ORDERS SCANNED DOCUMENT 10/09/2024 3:00 AM EDT OTHER ORDERS SCANNED DOCUMENT 10/09/2024 3:00 AM EDT PERIODIC ORAL EVALUATION ESTABLISHED PATIENT Routine 09/18/2024 1:00 PM EDT Caries Encounter for dental examination DENTAL CASE MANAGEMENT - MOTIVATIONAL INTV Routine 09/18/2024 1:00 PM EDT Caries Encounter for dental examination PROPHYLAXIS - ADULT Routine 09/18/2024 1 :00 PM EDT Caries Encounter for dental examination 2 INTRAORAL - PERIAPICAL FIRST RADIOGRAPHIC IMAGE Routine 09/18/2024 1:00 PM EDT Caries Encounter for dental examination 18 INTRAORAL - PERIAPICAL EACH ADD RADIOGRAPH IMAGE Routine 09/18/2024 1:00 PM EDT Caries Encounter for dental examination 15 INTRAORAL - PERIAPICAL EACH ADD RADIOGRAPH IMAGE Routine 09/18/2024 1:00 PM EDT Caries Encounter for dental examination BITEWINGS - FOUR RADIOGRAPHIC IMAGES Routine 09/18/2024 1:00 PM EDT Caries Encounter for dental examination CARIES RISK ASSESSMENT & DOC FINDING HIGH RISK Routine 09/18/2024 1:00 PM EDT Caries Encounter for dental examination NUTRITIONAL COUNSELING CONTROL OF DENTAL DISEASE Routine 09/18/2024 1:00 PM EDT Caries Encounter for dental examination ORAL HYGIENE INSTRUCTIONS Routine 09/18/2024 1:00 PM EDT Caries Encounter for dental examination ORAL CANCER SCREENING Routine 09/18/2024 1:00 PM EDT Caries Encounter for dental examination CASE PRESENTATION SUBS DTL & EXTENSIVE TX PLN Routine 09/18/2024 1:00 PM EDT Encounter for dental examination REFERRAL TO UROLOGY Routine 09/06/2024 3 :00 AM EST Type 2 diabetes mellitus without complication, without long-term current use of insulin ([facility]) Erectile dysfunction, unspecified erectile dysfunction type Retrograde ejaculation COMP PERIODONTAL EVALUATION - NEW/EST PATIENT Routine 01/24/2024 3:00 PM EDT Caries HEPATITIS C AB W/RFLX HCV RNA, QT, RT PCR Routine 11/30/2023 3:00 PM EDT Type 2 diabetes mellitus with hyperglycemia, with long-term current use of insulin ([facility]) Dyslipidemia Diabetic foot ([facility]) Primary open angle glaucoma (POAG) of both eyes, mild stage LIPID PANEL Routine 11/30/2023 3:00 PM EDT Type 2 diabetes mellitus with hyperglycemia, with long-term current use of insulin ([facility]) Dyslipidemia COMPREHENSIVE METABOLIC PANEL Routine 11/30/2023 2:57 PM EDT Type 2 diabetes mellitus with hyperglycemia, with long-term current use of insulin ([facility]) MICROALBUMIN/CREATININ E RATIO, URINE, RANDOM Routine 11/30/2023 2:57 PM EDT Type 2 diabetes mellitus with hyperglycemia, with long-term current use of insulin ([facility]) PANORAMIC RADIOGRAPHIC IMAGE Routine 01/06/2023 2:00 PM EDT Caries of pulp from Last 3 Months or Most Recently Relevant to Health Maintenance Results * GLUCOSE, BLOOD BY GLUCOSE MONITORING DEVICE (CLIA WAIVED)POCT (10/18/2024 3:41 PM EDT) Only the most recent of2 resultswithin the time period is included. GLUCOSE [facility] 70 - 100 mg/dL [facility] [place] BACK OFFICE POCT Capillary Blood Blood / Unknown 3:41 PM EDT us Rene PinedaD LAB - BLOOD DRAW Final Resu lt [facility] OFFICE POCT * (ABNORMAL) HGBA1C W/MPG (10/18/2024 3:22 PM EDT) [facility] HEMOGLOBIN A1C >14.0(H) <5.7 % [employer] Comment: Verified by repeat analysis. For someone [...] children. ?? MEAN PLASMA GLUCOSE See Note [employer] Comment: MPG cannot be calculated. Hemoglobin A1c result exceeds the linearity of the assay. Blood Blood / Unknown 10/18/2024 3 :22 PM EDT 10/18/2024 3:22 PM EDT Narrative [facility] - 10/19/2024 10:34 PM EDT FASTING:NO Rene Castro PharmD LAB - BLOOD DRAW Final Resu lt [facility] [address] [place] [address], [employer] [address] [place] [phone] * VITAMIN B12 & FOLATE (10/18/2024 3:22 PM EDT) Pathologist [facility] VITAMIN B12 664 200 - 1,100 pg/mL [employer] FOLATE, SERUM 10.6 5.5 ng/mL [employer] Comment: ? Reference Range ? Low: ? <3.4 ? Borderline: ?3.4-5.4 ? Normal: ?>5.4 Blood Blood / Unknown 10/18/2024 3 :22 PM EDT 10/18/2024 3:22 PM EDT Narrative [facility] [employer] - 10/19/2024 10:34 PM EDT FASTING:NO Rene Antil PharmD LAB - BLOOD DRAW Edited Res ult - Final [facility] [employer] [email or web address]) [address] [place] [address], [employer] [address] [phone] * HEALTH HISTORY SCANNED DOCUMENT (10/09/2024 3:00 AM EDT) 10/09/2024 3:00 AM EDT [facility] Provider Default SCAN OTHER ORDERS Final Re sult * OTHER ORDERS SCANNED DOCUMENT (10/09/2024 3:00 AM EDT) Only the most recent of2 resultswithin the time period is included. 10/09/2024 3:00 AM EDT José Miguel MARINA SCAN OTHER ORDERS Final Result * REFERRAL TO UROLOGY (09/06/2024 3:00 AM EST) 09/06/2024 3:00 AM EST José Miguel MARINA REFERRAL Final Result * HEPATITIS C AB W/RFLX HCV RNA, QT, RT PCR (11/30/2023 3:00 PM EDT) HEPATITIS C ANTIBODY NON-REACT PRETTY NON-REACT PRETTY [employer] [facility] Comment: HCV antibody was non-reactive. There is no laboratory evidence of HCV infection. In most cases, no further action is required. However, if recent HCV exposure is suspected, a test for HCV RNA (test code 94653) is suggested. For additional information please refer to http://Mind-NRG.Sentons/faq/NUL30d7 (This link is being provided for informational/ educational purposes only.) Blood Blood / Unknown 11/30/2023 3 :00 PM EDT 11/30/2023 3:00 PM EDT us José Miguel MARINA LAB - BLOOD DRAW Edited Result - Final [facility] [address] [place] [address], [employer] [address] [place] [phone] * (ABNORMAL) LIPID PANEL (11/30/2023 3:00 PM EDT) [facility] CHOLESTEROL, TOTAL 182 <200 mg/dL [employer] HDL CHOLESTEROL 50 > OR = 40 mg/dL [employer] TRIGLYCERIDES 152(H) <150 mg/dL [employer] LDL-CHOLESTEROL 105(H) 99 mg/dL (calc) [employer] Comment: Reference range: <100 Desirable range <100 mg/dL for primary prevention; ?? <70 mg/dL for patients with CHD or diabetic patients with > or = 2 CHD risk factors. LDL-C is now calculated using the Fortunato-Coleman calculation, which is a validated novel method providing better accuracy than the Friedewald equation in the estimation of LDL-C. Fortunato [place] et al. [place]. 2013;310(19): 5967-3423 (http://education.Stylr/faq/AAB999) CHOL/HDLC RATIO 3.6 <5.0 (calc) [employer] NON-HDL CHOLESTEROL 132(H) <130 mg/dL (calc) [employer] Comment: For patients with diabetes plus 1 major ASCVD risk factor, treating to a non-HDL-C goal of <100 mg/dL (LDL-C of <70 mg/dL) is considered a therapeutic option. Blood Blood / Unknown 11/30/2023 3 :00 PM EDT 11/30/2023 3:00 PM EDT José Miguel MARINA LAB - BLOOD DRAW Final Result Performing Organization Address [facility] Co de Phone Number [employer] [address] [address], [employer] [address] [address] * MICROALBUMIN/CREATININE RATIO, URINE, RANDOM (11/30/2023 2:57 PM EDT) CREATININE, RANDOM URINE 25 20 - 320 mg/dL [employer] [facility] MICROALBUMIN <0.2 mg/dL [employer] [facility] Comment: Reference Range Not established MICROALBUMIN/CREA TININE RATIO, RANDOM URINE NOTE <30 [employer] [facility] Comment: NOTE: The urine albumin value [...] 2:57 PM EDT Haydee Garcia PA-C LAB URINE AMBULATORY Final Result Performing Organization Address [facility]/ZIP Co de Phone Number [employer] [facility] [address] [address], [employer] [address] [address] * (ABNORMAL) COMPREHENSIVE METABOLIC PANEL (11/30/2023 2:57 PM EDT) GLUCOSE 588(H) 65 - 99 mg/dL [employer] [facility] Comment: THE ABOVE TEST WAS PERFORMED; HOWEVER, THE QUANTITY WAS NOT SUFFICIENT FOR RESULT VERIFICATION. ? Fasting reference interval For someone without known diabetes, a glucose value >125 mg/dL indicates that they may have diabetes and this should be confirmed with a follow-up test. UREA NITROGEN (BUN) 18 7 - 25 mg/dL [employer] [facility] CREATININE (blood) 1.01 0.70 - 1.28 mg/dL [employer] EGFR 79 > OR = 60 mL/min/1. 73m2 [employer] BUN/CREATININE RATIO SEE NOTE: [employer] [facility] Comment: ?? Not Reported: BUN and Creatinine are within ?? reference range. ? SODIUM 127(L) 135 - 146 mmol/L [employer] POTASSIUM 4.6 3.5 - 5.3 mmol/L [employer] CHLORIDE 94(L) 98 - 110 mmol/L [employer] CARBON DIOXIDE 25 20 - 32 mmol/L [employer] CALCIUM 9.4 8.6 - 10.3 mg/dL [employer] PROTEIN, TOTAL 6.6 6.1 - 8.1 g/dL [employer] [facility] ALBUMIN 4.0 3.6 - 5.1 g/dL [employer] GLOBULIN 2.6 1.9 - 3.7 g/dL (calc) [employer] ALBUMIN/GLOBULI N RATIO 1.5 1.0 - 2.5 (calc) [employer] BILIRUBIN, TOTAL 0.4 0.2 - 1.2 mg/dL [employer] [facility] ALKALINE PHOSPHATASE 117 35 - 144 U/L [employer] [facility] AST 14 10 - 35 U/L [employer] [facility] ALT 14 9 - 46 U/L [employer] [facility] Blood Blood / Unknown 11/30/2023 2 :57 PM EDT 11/30/2023 2:57 PM EDT us Haydee Garcia PA-C LAB - BLOOD DRAW Final Resu lt [employer] [address] [address], [employer] [address] [phone] from Last 3 Months or Most Recently Relevant to Health Maintenance Insurance [employer] - DENTAL Care Teams Beating Machine Operator Relationship Specialty Start Date End Date José Miguel Vega PA [address] [place] [address] PCP - General Internal Medicine 05/10/16
--- OUTSIDE RECORDS SUMMARY | 2024-11-20 15:32 | XMS_ITS | Data Portability ---
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 [email or web address] Not available 07/10/2024 15:10:47 11/07/2024 11/07/2024 74yo male presents for evaluation of hearing loss. Otologic exam demonstrates TMs are intact with well-aerated middle ear spaces. Audiogram shows normal hearing from 250 through 2000 Hz sloping to a moderate sensorineural hearing loss with excellent word recognition. Tympanometry is type A. Patient is interested in hearing aids and is medically cleared bilaterally. He will return for hearing aid evaluation in our office. Recommend annual follow up with repeat audiometric testing, or sooner with any concerns. [email or web address] Not available 11/07/2024 16:03:26 Plan of Treatment Reminders Order Date Submit Date Provider Last Modified By Organization Details Last Modified Time Details Appointments BYRD Initial Fitting 2024 03:00P Cierra IZAGUIRRE Not available Not available Not available Lab None recorded . Referral None recorded . Procedures None recorded . Surgeries None recorded . Imaging None recorded . Medication Orders None recorded . Patient TargetsNo targets recorded. Patient InstructionsNo instructions recorded. Reason for Referral None Reported. Results Created Date Observation Date Name Description Value Unit Range Abnormal Flag Note LastModifiedBy Organization Detail LastModifiedTime 11/09/19 25 11/07/2024 audio gram No observ ation record ed. [email or web address] [facility] [address], [place], [address], 11/08/2024 16:20:32 Result Notes None recorded. Problems Name Problem SNOMED Code Status Onset Date Resolution Date Notes Provider Name and Address Organization Details Recorded Time Mixed sleep apnea 528708672 Active 2023 JUDE QUINTERO MD [facility], [place], [address], [place] [facility] [place] 4 22:19:50 Impacted cerumen in right ear 2791309691373 103 Active 2024 JUDE QUINTERO MD [address] [facility] [address], [place], [address], [place] [facility] 5 15:09:27 Bilateral tinnitus 6892139189245 Active 2024 MARY GARNER PA-C 100 [facility], [place], [address], [place] [facility] [place] 14:27:54 Sensorineur al hearing loss of bilateral ears 555621692 Active 2024 Cierra PECK [address] [facility], [place], [address], [facility] - [facility] 13:59:43 Problem Notes None recorded. Procedures Surgical History Date Name Laterality Status Provider Name and Address Organization Details Recorded Time 11/07/2024 Comp Audio with Tymps - 25111 & 19787 completed Cierra PECK [address] [facility] [address] [address], [place], [address], [facility] [place] 11/07/2024 13:59:19 07/10/2024 Wax_DP completed JUDE QUINTERO MD [address] [facility] [address], [place], [address], [facility] - [facility] 07/10/2024 15:09:16 Imaging Results Imaging Date Name Status LastModified by Organiz ation Details LastModified Time 11/07/2024 [facility]ogram [facility] [address], [place], [address], 11/08/2024 16:20:32 Procedure Notes None recorded. Medical Equipment None Reported. Allergies No known drug allergies Medications Name Sig Start Date Stop Date Status Note LastModified by Organization Details LastModified Time latanoprost 0.005 % eye drops INSTILL 1 DROP INTO BOTH EYES EVERY DAY AT NIGHT active Not Available Not Available No t [...] Not Available Not Available No t Available tadalafil 5 mg tablet TAKE 1 TABLET BY MOUTH EVERY DAY active Not Available Not Available No [...] t Available Vitals Date Recorded Body height Provider Name an d Address Organization Details Last Updated DateTime 11/07/2024 182.88 cm ANGELO CARIAS [place] - [facility] 11/07/2024 13:19:30 Date Recorded Body height Body mass index (BMI) Body weight Provider Name and Address Organization Details Last Updated DateTime 07/10/2024 182.88 cm 22.4 kg/m2 03654.74 g Sayra Issac [place] - [facility] 07/10/2024 14:42:51 Social History None recorded. Functional Status Question Answer Note LastModified by Organization D etails LastModified Time What is your level of alcohol consumption? None [email or web address] Information not available 11/07/2024 Mental Status None recorded. Family History Nothing Reported. Medical History Condition Response Anemia Y Anxiety Y Hypertension Y Depression Y Past Encounters Encounter ID Performer Location Encounter Start Date Encounter Closed Date Diagnosis/Indication Diagnosis SNOMED-CT Code Diagnosis ICD10 Code Diagnosis Note [id number] JUDE QUINTERO MD [facility] [address] [address] 07/10/2024 14:21:14 07/10/2024 15:11:20 Mixed sleep apnea 473907300 G47.39 Impacted c erumen in right ear 7325583110 414364 H61.21 Ears were meticulous ly cleaned RIGHT today with fine pics, curettes and/or suction. Patient is encouraged to avoid Q-tips in their ears relative to packing the wax in tighter. They may use the corner of their bath towel to gently clean the nooks and crannies of the external ears as needed. Yearly visits or as needed are recommende d. Bilateral tinnitus 70822 73902 102 H93.13 [id number] MARY GARNER PA-C [facility] [address] [address] 11/07/2024 13:18:28 11/07/2024 14:31:14 Sensorineural hearing loss of bilateral ears 397010750 H90.3 Audiologic al evaluation results: Right ear: {{Normal* Mild Moder ate Modera tely severe Sev ere Profou nd No response}} {{hearing* sensorine ural hearing loss condu ctive hearing loss mixed hearing loss}} from 250 through {{691 291 2649 1500 2000* 3000 4000 6000 8000}} Hz {{sloping to* rising to}} {{normal a mild a moderate* a moderately severe a severe a profound}} {{hearing with senso rineural hearing loss with* cond uctive hearing loss with mixed hearing loss with}} {{excellen t* good fa ir poor no measurable }} word recognitio n. Left ear: {{Normal* Mild Moder ate Modera tely severe Sev ere Profou nd No response}} {{hearing* sensorine ural hearing loss condu ctive hearing loss mixed hearing loss}} from 250 through {{856 081 2438 1500 2000* 3000 4000 6000 8000}} Hz {{sloping to* rising to}} {{normal a mild a moderate* a moderately severe a severe a profound}} {{hearing with senso rineural hearing loss with* cond uctive hearing loss with mixed hearing loss with}} {{excellen t* good fa ir poor no measurable }} word recognitio n. Tympanomet ry: Right Ear:{{Type A* Type A with rounded peak Type A with double peak Type As Type As with rounded peak Type Ad Type C Type C, shallow & rounded peak Type B Type B with large volume Cou ld not maintain a hermetic seal}} Left Ear:{{Type A* Type A with rounded peak Type A with double peak Type As Type As with rounded peak Type Ad Type C Type C, shallow & rounded peak Type B Type B with large volume Cou ld not maintain a hermetic seal}} Bilateral tinnitus 70723 21800 102 H93.13 Health Concerns Section Related Observation LastModified by Organization Detai ls LastModified Time None Recorded Concern Status LastModified by Organization Details LastModified Time None Recorded Advance Directives Directive None Recorded Payers Insurance Date Sequence Insurance Name Policy Number Policy Waller Covered Member ID Waller Member ID Guarantor Name 09/25/2024 1 [place] [employer] Dm A Corey [id number] Dm Corey 07/10/2024 2 [facility] - DOS ON OR AFTER 2022 - MEDICARE [place]ANTAGE [place]MED[place]ARE REPLAC[place]/AD VANTAGE - PPO) Dm Corey [id number] Dm Corey 10/08/2024 1 [place] [facility] Dm A Corey [id number] Dm Corey 08/18/2024 2 [place] [facility] Dm Corey [id number] Dm Corey 10/06/2024 1 [facility] (MEDICARE REPLACEMENT/AD VANTAGE - PPO) [id number] Dm A Corey [id number] Dm Corey 11/19/2024 1 [facility] (MEDICARE REPLACEMENT/AD VANTAGE - PPO) Dm A Corey [id number] Dm Corey 11/07/2024 2 [place] [facility] Dm A Corey [id number] Dm Corey Notes Date Note Type Note Provider Name and Address Organization Details Recorded Time 07/10/2024 text/html Severe mixed sle ep apnea04/14/2023 Home PSG [place] [facility] [address] [place] 26AHI 48.7Central and mixed events 324/528 = 61%CPAP trial delayed secondary to difficulty receiving equipmentgets some claustrophobia regarding masksPatient undergoing evaluation for significant weight loss secondary concern of 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 This has been gradual for many years. Denies ear pain, drainage, or dizziness. Denies prior ear infections or ear surgeries. 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 DWIGHT GEORGE MD [address] [place] [address], [address], [place] - [facility] 11/07/2024 16:56:22
== END 2024-11-20 14:09 | disposition home or self-care (01) ==
LOC: HO.HMGCX 14:08
PROVIDERS: PCP Physician Assistant; Visit Provider Urology
DX: N53.14 Retrograde ejaculation (principal); N52.9 Male erectile dysfunction, unspecified
CPT/HCPCS: 76770

== ENCOUNTER → 2024-11-20 14:12 | Outpatient (BNV) | payer MEDICARE, SELFPAY | PROVIDERS: PCP Physician Assistant; Visit Provider Radiology Diagnostic Radiology | DX: N13.30 Unspecified hydronephrosis (principal); R39.14 Feeling of incomplete bladder emptying | CPT/HCPCS: 76770 ==

== ENCOUNTER 2024-12-06 10:21 | Outpatient (REF) | payer MEDICARE, SELFPAY | END 2024-12-06 10:22 | disposition home or self-care (01) | LOC: HO.HMGCLDS 10:21 | PROVIDERS: PCP Physician Assistant; Visit Provider Urology | DX: Z13.89 Encounter for screening for other disorder (principal) | CPT/HCPCS: 36415; 84153 ==

== ENCOUNTER 2024-12-06 13:51 | Outpatient (AMB) | payer MEDICARE, SELFPAY ==
--- NOTE | 2024-12-06 14:01 | MHC.OFFVIS ---
Intake Visit Reasons: 3m/US/PSA Intake Note: Patient presents to office today for 3 month follow up/US/PSA Renal US 11/20 Urology Medication:Tadalafil Antibiotic Allergy:NONE Blood Thinner:NONE PVR:0ml Toll Bridge Operator Required: No Allergies No Known Allergies Allergy (Verified 12/06/24 14:20) HPI Comments Details: 12/06/24-- 09/17/24- 73-year-old male presenting with erectile dysfunction. He has been prescribed a low-dose generic Cialis (5 mg) to aid in achieving and maintaining erections.. His sexual health concerns extend to questions about sperm production, possibly due to age-related changes, prostate function, and diabetes-related retrograde ejaculation. The patient indicates a past stable sexual function and anticipates a relationship in the future. His significant medical history includes diabetes mellitus, currently unmanaged, which has resulted in considerable weight loss. The patient reports urinary frequency, likely related to his diabetes, with ongoing efforts to control blood glucose levels through lifestyle management and previous medication. Additionally, he experiences episodes potentially consistent with retrograde ejaculation. Frequent voiding is noted, exacerbated by fluid intake and diabetes, with a history of attempts at managing erectile dysfunction and urinary issues through pharmaceutical means. The patient is also experiencing gastrointestinal issues post-retreat, unrelated to the primary urological concerns. discussed that Uncontrolled diabetes can damage nerves, including those involved in the ejaculatory process.?This nerve damage can lead to retrograde ejaculation, 09/06/24--Dm is a 73-year-old male presenting with erectile dysfunction. He reports a complete absence of erections and a lack of semen production, I discussed with the patient the potential contributor of uncontrolled diabetes to his erectile dysfunction. I informed him that his prostate health could also be influencing his symptoms. Discussed the necessity of avoiding sexual activity 48 hours before the PSA test. He agreed to the proposed management plan. [facility] Medical History Cellulitis and abscess of lower extremity Left bundle branch block (LBBB) Slow transit constipation Gall stones Herpes DM w/o complication type II Abdominal pain in male Hip pain BPH (benign prostatic hyperplasia) H/O left bundle branch block DEB (obstructive sleep apnea) Obesity Osteoarthritis of both knees Neck pain Low back pain Dyslipidemia Diabetes mellitus Results AMB Urinalysis, Automated UA Leukoctes 0 Alexandre/uL Last Edit by Mamta Huston on 12/06/24 16:42 UA Nitrite Positive Last Edit by Mamta Huston on 12/06/24 16:42 UA Urobilinogen 3.5 mg/dL Last Edit by Mamta Huston on 12/06/24 16:42 UA Protein 0 mg/dL Last Edit by Mamta Huston on 12/06/24 16:42 UA pH 6.0 Last Edit by Mamta Huston on 12/06/24 16:42 UA Blood 0 Bhupinder/uL Last Edit by Mamta Huston on 12/06/24 16:42 UA Specific Michie 1.010 Last Edit by Mamta Huston on 12/06/24 16:42 UA Ketone Negative Last Edit by Mamta Huston on 12/06/24 16:42 UA Bilirubin 0 mg/dL Last Edit by Mamta Huston on 12/06/24 16:42 UA Glucose 60 mg/dL Last Edit by Mamta Huston on 12/06/24 16:42 Results Reviewed Results Reviewed: Date of Service: 11/20/24 Procedure(s): US retroperitoneal comp Accession Number(s): [id number] cc: Hayley Morton MD; BOB CORNELL~ EXAMINATION: US RETROPERITONEAL COMPLETE (RENAL) CLINICAL INFORMATION: Retrograde ejaculation. Erectil dysfunction.. COMPARISON: None available. TECHNIQUE: Real-time imaging of the kidneys and bladder. FINDINGS: RIGHT KIDNEY: 13 x 5 x 6 cm (SAG x AP x TRV). Volume: 207 cc. Normal echotexture. Normal renal cortical thickness. No gross solid or cystic lesion. Prominent pelvicalyceal system. LEFT KIDNEY: 13 x 6 x 6 cm (SAG x AP x TRV). Volume: 232 cc. Normal echotexture. No solid or cystic lesion. Prominent pelvicalyceal system and extending into the proximal ureter. BLADDER: Fluid-filled. Bilateral ureteral jets are demonstrated. Prevoid bladder volume is 772 mL. Postvoid bladder volume is 620 mL. Prostate gland measures 5 x 4 x 6 cm and volume: 66 cc. US/US retroperitoneal comp IMPRESSION: Hydronephrosis, mild to moderate left greater than the right side. 620 cc retained urine volume in a post void image. . Assessment & Plan Assessment & Plan (1) Erectile disorder: Code(s): N52.9 - Male erectile dysfunction, unspecified Category: Medical (2) BPH (benign prostatic hyperplasia): Code(s): N40.0 - Benign prostatic hyperplasia without lower urinary tract symptoms Category: Medical (3) Diabetes mellitus: Code(s): E11.9 - Type 2 diabetes mellitus without complications Category: Medical Plan Plan For erectile dysfunction, the patient will continue with low-dose Cialis, aimed to enhance erectile function. Uncontrolled diabetes may contribute to urinary his requency and retrograde ejaculation. Diabetes control is important. Renal Ultrasound ordered. Scribe Plan - Not visible on output: Patient was informed and verbally consented to the use of an ambient scribe for clinic note documentation during this visit. Coding Diagnoses Erectile disorder N52.9 BPH (benign prostatic hyperplasia) N40.0 Diabetes mellitus E11.9
== END 2024-12-06 15:00 | disposition home or self-care (01) ==
LOC: HO.HUSH 13:52
PROVIDERS: PCP Physician Assistant; Visit Provider Urology
DX: N52.9 Male erectile dysfunction, unspecified (principal); N40.0 Benign prostatic hyperplasia without lower urinary tract symptoms; E11.9 Type 2 diabetes mellitus without complications

== ENCOUNTER 2024-12-06 16:33 | Outpatient (REF) | payer MEDICARE, SELFPAY | END 2024-12-06 16:34 | disposition home or self-care (01) | LOC: HO.LNP 16:33 | PROVIDERS: Visit Provider Urology | DX: Z13.89 Encounter for screening for other disorder (principal) ==

== ENCOUNTER 2024-12-06 16:33 | Outpatient (REF) | payer MEDICARE, SELFPAY | END 2024-12-06 16:34 | disposition home or self-care (01) | LOC: HO.LAB 16:33 | PROVIDERS: Visit Provider Urology | DX: N40.0 Benign prostatic hyperplasia without lower urinary tract symptoms (principal); N52.9 Male erectile dysfunction, unspecified; E11.9 Type 2 diabetes mellitus without complications; Z12.5 Encounter for screening for malignant neoplasm of prostate | CPT/HCPCS: 36415; 81003; 84153; 87086 ==

== ENCOUNTER 2025-03-30 12:13 | Emergency (ER) | payer MEDICARE, SELFPAY ==
--- OUTSIDE RECORDS SUMMARY | 2025-03-26 15:00 | XMS_ITS | Encounter Summary ---
Author Organization [facility] Address [address] [place] [address] Care Team Providers Care Under Trimmer Name Role Phone José Miguel Vega Primary Care Provider [phone] Reason for Visit * Reason Comments Follow Up DM Encounter Details Date Type Department Care Team (Late st Contact Info) Description 03/26/2025 3:00 PM EDT Office Visit [facility] Main [address] [place] [phone] Rene Castro, PharmD [address] [place] [address] Social History Tobacco Use Types Packs/Day Years Used Date Smoking Tobacco: Never Cigarettes Qu it: 07/04/2002 Smokeless Tobacco: Never Quit: 07/04/2004 Tobacco Cessation:Counseling Given: Not Answered Alcohol Use Standard Drinks/Week Comments No 0 [...] file Not on file Not on file documented as of this encounter Last Filed Vital Signs Vital Sign Reading Time Taken Comments Blood Pressure 100/58 03/26/2025 3:13 PM EDT Pulse 90 03/26/2025 3:13 PM EDT Temperature 36.6 C (97.8 F) 03/26/2025 3:13 PM EDT Respiratory Rate 16 03/26/2025 3:13 PM EDT Oxygen Saturation 99% 03/26/2025 3:13 PM EDT Inhaled Oxygen Concentration - - Weight 76.6 kg (168 lb 12.8 oz) 03/26/2025 3:13 PM EDT Height 180.3 cm (5' 11 ) 03/26/2025 3:13 PM EDT Body Mass Index 23.54 03/26/2025 3:13 PM EDT documented in this encounter Progress Notes * Rene Castro PharmD - 02/11/2025 2:20 PM EDT Dm Nicole is a 74 year old, Chinese-speaking male who presents today for a follow-up visit in [facility] with Rene Castro PharmD. Referred by José Miguel Vega PA-C. No placement interviewer needed for today's visit as patient speaks Chinese. Accompanied by: None Subjective: Patient reports: Patient reports doing well, denies proper use of medications, and denies any issues today. Is not using metformin but willing to restart, does not take Farxiga. Injects 30 units of Lantus about once weekly and tries to use Humalog with each meal averages up to 30 units with each meal. Patient states they are motivated to stay on top of DM meds to get DM controlled. Has visiting nurse come once weekly has helped increase adherence to medications, wishes the nurse could come more often. States BG was 473mg/dL per visiting nurse this AM. Brings in Viviane 3 for teaching today. Continues to drink a lot of Juice and soda as well as powdered add ons in water, and still follows a poor diet eating mostly what they can but is following with physician office assistant. Stays active at home andoccasionally goes to the gym. Wants to gain weight. Agreeable to flu shot today. Patient agreeable to complete lab work today. New concerns: None Tobacco Use: Former Smoker: Quit >20 years ago Tobacco Intervention:provided smoking cessation counseling Alcohol Use: Former drinker, quit >20 years ago Additional OTC medications or supplements: Saw [place] and other OTC vitamin and minerals. Specialists managing DM/HTN: None Diabetes Current Diabetes RX: Farxiga 5mg once daily Humalog Below 100 - no insulin, 101 to 150 - 5 units, 151 to 200 - 10 units, 201 to 250 - 15 units,251 to 300 - 20 units, 301 to 350 - 25 units; Max 75 units/day Lantus 30 units daily Metformin 1000mg twice daily Last foot exam: 03/11/25. Last eye exam: Referred 06/19/24. Exercise/Physical activity: minimal exercise: Stays active at home with activities and occasionallygoes to the gym. Diet: Patient endorses drinking soda and juice daily and adding sugar to tea. Reports low carb intake, eating more vegetables and fruits, but eat what they are able to each day. Drinking more water. Patient reports that they like to eat organic foods, denies processed foods. Following with physician office assistant. CGM Metrics: not available SMBG (CGM: Freestyle Viviane 3 Plus) Hypoglycemic events in the last 2 weeks: No, patient able to convey proper hypoglycemic treatment. Brings in CGM to get Viviane set up. Objective: Allergies reviewed: No Known Allergies BP 100/58 (Left Arm, Sitting, Regular Adult) Pulse 90 Temp 97.8 ??F (36.6 ??C) Resp 16 Ht 5' 11 (1.803 m) Wt 168 lb 12.8 oz (76.6 kg) SpO2 99% BMI 23.54 kg/m?? Smoking Status Never BSA 1.96 m?? BP 100/58 at 03/26/2025 3:13 PM BP 116/60 at 12/21/2024 3:51 PM BP 102/60 at 10/18/2024 2:32 PM Wt Readings from Last 3 Encounters: 03/26/25 168 lb 12.8 oz (76.6 kg) 02/25/25 165 lb (74.8 kg) 12/21/24 165 lb (74.8 kg) Lab Results Component Value Date HGBA1C >14.0 (H) 10/18/2024 HGBA1C >14.0 (H) 04/18/2024 HGBA1C >14.0 (H) 11/30/2023 Lab Results Component Value Date GLUCOSE HHH 10/18/2024 EAG > 378 09/04/2020 Lab Results Component Value Date MICRALBCREAT 8.2 03/20/2013 URALBCREAT NOTE 11/30/2023 Lab Results Component Value Date VITB12 664 10/18/2024 FOLATE 10.6 10/18/2024 Lab Results Component Value Date NA 127 (L) 11/30/2023 K 4.6 11/30/2023 BUN 18 11/30/2023 BUNCREAT SEE NOTE: 11/30/2023 CREATININE 1.01 11/30/2023 EGFR 79 11/30/2023 CrCl cannot be calculated (Patient's most recent lab result is older than the maximum 365 days allowed.). No results found for: METANEPHRINE , ALDOSTERONE , NORMETNEPH , RENIN , ALDOPRA , TSH , CORTISOLAM , [id number] , [id number] Lab Results Component Value Date TRIGLYC 152 (H) 11/30/2023 CHOL 182 11/30/2023 HDL 50 11/30/2023 LDL 105 (H) 11/30/2023 CHOLHDL 3.6 11/30/2023 NONHDL 132 (H) 11/30/2023 The 10-year ASCVD risk score (Qing ROSARIO, et al., 2019) is: 31.1% Assessment: Diabetes: Need updated A1c, Lack of SMBG ASCVD: Age 40-75 yo, DM, high ASCVD = high intensity statin recommended to reduce LDL by at least 50% (goal LDL <70 mg/dL) Plan: E11.65,Z79.4 Type 2 diabetes mellitus with hyperglycemia, with long-term current use of insulin ([facility]) (primary encounter diagnosis) Plan : HGBA1C W/MPG COMPREHENSIVE METABOLIC PANEL LIPID PANEL Patient agreed to restart metformin 1/2 tab BID for one week then increase to 1 tab BID, start using Lantus 30 units daily, and continue to use Humalog with each meal. Will continue to F/U with CGM data for medication adjustments. Discussed lifestyle modifications to help manage DM (Increase physical activity as tolerated, maintain healthy weight, and healthy low carb diet) Discussed proper SMBG and goals and patient agreed to SMBG daily and bring readings to future appointments. Placed Freestyle Viviane 3 Plus sensor on patient's back of right arm. Connected to Freestyle Viviane 3application on phone. Counseled patient on changing sensor every 15 days. Advised patient on warm-up period of 60 minutes prior to obtaining glucose readings. Patient confirmed understanding. PHARMACOTHERAPY for diabetes Farxiga 5mg once daily Humalog Below 100 - no insulin, 101 to 150 - 5 units, 151 to 200 - 10 units, 201 to 250 - 15 units,251 to 300 - 20 units, 301 to 350 - 25 units; Max 75 units/day Lantus 30 units once daily Metformin 1000mg twice daily ASCVD: Per 2024 ADA guidelines for lipid management, continue high-intensity statin: Atorvastatin 80mg. Z23 Immunization due Plan : IIV VACCINE PRESERV FREE INCREASED AG CONTENT IM Z79.899 Medication management Medications reviewed and medlist updated. Referral: None [facility] Diabetes Clinic: May. Patient agrees with plan of care and verbalizes understanding. Questions were answered. Education: Labs due A1c, CMP, Lipid, and microalbumin - will review results and determine best therapy Medication Regimen: (indication, dosage, administration, storage, ADR, missing dose) BG testing and target Proper Injection Technique Healthy Eating Benefits and importance of physical activity Sign / Symptoms of Hyperglycemia / Hypoglycemia Hypoglycemia Treatment (Rule 15) Jail Complications Uncontrolled Diabetes Rene Castro PharmD, [facility] documented in this encounter Miscellaneous Notes * Patient Instructions - Rene Castro PharmD - 03/26/2025 3:32 PM EDT Instructions: Normal blood pressure: less than 130/80 mmHg (should not be lower than 100/60 mmHg) 2. Normal Pulse: 60 - 100 beats per minute 3. Seek emergency care if your blood pressure is greater than 180/110 mmHg and you have symptoms such as chest pain, chest tightness, dizziness/lightheadedness, headaches, palpitations or other pertinent symptoms. AM Fasting 80-130mg/dL 2 Hours after a meal <180 mg/dL Low blood sugar need to raise <70 mg/dL Jose Armando Castro PharmD, [facility] Clinical Pharmacist Press 1 for Chinese Enter extension [phone] They will not ask you what extension you want to reach, so just enter extension. You may leave me a message if I do not answer. Please state your name, date of and call back number If you are not able to keep your appointment please call 24-48 hours before your appointment to cancel or reschedule. documented in this encounter Plan of Treatment Upcoming Encounters Date Type Department Care Team (Late st Contact Info) Description 05/27/2025 3:00 PM EST Office Visit [facility] [address] [place] [phone] Jaycee Orona, RN [address] [place] [address] 05/29/2025 2:00 PM EST Telemedicine Visit [facility] [address] [place] [phone] Mandeep Boogie, RD [address] [place] [address] 09/18/2025 1:40 PM EDT Office Visit [facility] [address] [place] [phone] Leonidas Laguna RHD [address] [place] [address] Scheduled Orders Name Type Priority Associated Diagnoses Orde r Schedule HGBA1C W/MPG Routine Lab Routine Type 2 diabetes mellitus with hyperglycemia, with long-term current use of insulin ([facility]) Ordered: 03/26/2025 documented as of this encounter Procedures Procedure Name Priority Date/Time Associated Diagnosis Comments HGBA1C W/MPG Routine 03/26/2025 3:57 PM EDT LIPID PANEL Routine 03/26/2025 3:57 PM EDT Type 2 diabetes mellitus with hyperglycemia, with long-term current use of insulin ([facility]) COMPREHENSIVE METABOLIC PANEL Routine 03/26/2025 3:57 PM EDT Type 2 diabetes mellitus with hyperglycemia, with long-term current use of insulin ([facility]) documented in this encounter Results * (ABNORMAL) HGBA1C W/MPG Routine (03/26/2025 3:57 PM EDT) HEMOGLOBIN A1C 12.3(H) <5.7 % 03/27/2025 9:38 AM EDT [facility] MEAN PLASMA GLUCOSE 361 mg/dL (calc) 03/27/2025 9:38 AM EDT [facility] 03/26/2025 3:57 PM EDT 03/27/2025 3:12 AM EDT Narrative [facility] - 03/27/2025 9:38 AM EDT FASTING:NO For someone without known diabetes, a hemoglobin A1c value of 6.5% or greater indicates that they may have diabetes and this should be confirmed with a follow-up test. . For someone with known diabetes, a value <7% indicates that their diabetes is well controlled and a value greater than or equal to 7% indicates suboptimal control. A1c targets should be individualized based on duration of diabetes, age, comorbid conditions, and other considerations. . Currently, no consensus exists regarding use of hemoglobin A1c for diagnosis of diabetes for children. . us Rene Castro PharmD LAB - BLOOD DRAW Final Resu lt [email or web address] [address] [address], [email or web address] [address] [address] * (ABNORMAL) LIPID PANEL Routine (03/26/2025 3:57 PM EDT) CHOLESTEROL, TOTAL 173 <200 mg/dL 03/28/2025 3:20 AM EDT [email or web address] HDL CHOLESTEROL 52 > OR = 40 mg/dL 03/28/2025 3:20 AM EDT [email or web address] [facility] TRIGLYCERIDES 180(H) <150 mg/dL 03/28/2025 3:20 AM EDT [email or web address] [facility] LDL-CHOLESTEROL 93 mg/dL (calc) 03/28/2025 3:20 AM EDT [email or web address] [facility] CHOL/HDLC RATIO 3.3 <5.0 (calc) 03/28/2025 3:20 AM EDT [email or web address] [facility] NON-HDL CHOLESTEROL 121 <130 mg/dL (calc) 03/28/2025 3:20 AM EDT [email or web address] [facility] Blood Blood / Unknown 03/26/2025 3 :57 PM EDT 03/27/2025 7:06 AM EDT Narrative [email or web address] - 03/28/2025 3:28 AM EDT FASTING:NO Reference range: <100 . Desirable range <100 mg/dL for primary prevention; <70 mg/dL for patients with CHD or diabetic patients with > or = 2 CHD risk factors. . LDL-C is now calculated using the Fortunato-Jared calculation, which is a validated novel method providing better accuracy than the Friedewald equation in the estimation of LDL-C. Fortunato SS et al. [place]. 2013;310(19): 7147-7514 (http://education.[employer]/faq/NAE949) For patients with diabetes plus 1 major ASCVD risk factor, treating to a non-HDL-C goal of <100 mg/dL (LDL-C of <70 mg/dL) is considered a therapeutic option. Rene Castro PharmD LAB - BLOOD DRAW Final Resu lt [email or web address] [address] [address], [email or web address] [address] [address] * (ABNORMAL) COMPREHENSIVE METABOLIC PANEL Routine (03/26/2025 3:57 PM EDT) GLUCOSE 227(H) 65 - 139 mg/dL 03/28/2025 3:20 AM [employer] [facility] UREA NITROGEN (BUN) 17 7 - 25 mg/dL 03/28/2025 3:20 AM [employer] [facility] CREATININE (blood) 0.78 0.70 - 1.28 mg/dL 03/28/2025 3:20 AM [employer] [facility] EGFR 94 > OR = 60 mL/min/1. 73m2 03/28/2025 3:20 AM [employer] [facility] BUN/CREATININE RATIO SEE NOTE: 6 - 22 (calc) 03/28/2025 3:20 AM [employer] [facility] SODIUM 136 135 - 146 mmol/L 03/28/2025 3:20 AM [employer] [facility] POTASSIUM 4.5 3.5 - 5.3 mmol/L 03/28/2025 3:20 AM [employer] [facility] CHLORIDE 98 98 - 110 mmol/L 03/28/2025 3:20 AM [employer] [facility] CARBON DIOXIDE 29 20 - 32 mmol/L 03/28/2025 3:20 AM [employer] [facility] CALCIUM 9.5 8.6 - 10.3 mg/dL 03/28/2025 3:20 AM [employer] [facility] PROTEIN, TOTAL 6.9 6.1 - 8.1 g/dL 03/28/2025 3:20 AM [employer] [facility] ALBUMIN 4.0 3.6 - 5.1 g/dL 03/28/2025 3:20 AM [employer] [facility] GLOBULIN 2.9 1.9 - 3.7 g/dL (calc) 03/28/2025 3:20 AM [employer] [facility] ALBUMIN/GLOBULI N RATIO 1.4 1.0 - 2.5 (calc) 03/28/2025 3:20 AM [employer] [facility] BILIRUBIN, TOTAL 0.5 0.2 - 1.2 mg/dL 03/28/2025 3:20 AM [employer] [facility] ALKALINE PHOSPHATASE 78 35 - 144 U/L 03/28/2025 3:20 AM [employer] [facility] AST 14 10 - 35 U/L 03/28/2025 3:20 AM [employer] [facility] ALT 13 9 - 46 U/L 03/28/2025 3:20 AM [employer] [facility] Blood Blood / Unknown 03/26/2025 3 :57 PM EDT 03/27/2025 7:06 AM EDT Narrative [facility] - 03/28/2025 3:28 AM EDT FASTING:NO . Non-fasting reference interval . Not Reported: BUN and Creatinine are within reference range. . us Rene Matthew PharmD LAB - BLOOD DRAW Final Resu lt [facility] [address] [address], [email or web address] [facility] [address] [place] [address] documented in this encounter Visit Diagnoses Diagnosis Type 2 diabetes mellitus with hyperglycemia, with long-term current use of insulin ([facility])- Primary Immunization due Need for prophylactic vaccination and inoculation against unspecified single disease Medication management Encounter for long-term (current) use of other medications documented in this encounter Additional Health Concerns Assessment Noted Time PHQ-9 Depression Total Score: 0 01/10/20 10:10 AM PDT A Depression follow-up plan has been documented for the patient 12/21/2024 10:25 PM PDT documented as of this encounter Care Teams Under Trimmer Relationship Specialty Start Date End Date José Miguel Vega PA [address] [place] [address] PCP - General Internal Medicine 05/10/16 documented as of this encounter
--- OUTSIDE RECORDS SUMMARY | 2025-03-28 14:00 | XMS_ITS | Encounter Summary ---
Author Organization [facility] Address [address] [place] [address] Care Team Providers Care Computer System Validation Specialist Name Role Phone José Miguel Vega Primary Care Provider [phone] Encounter Details Date Type Department Care Team (Late st Contact Info) Description 03/28/2025 2:00 PM EDT Telemedicine Visit [facility] Main [address] [place] [phone] Keagan Kaufman, RD [address] [place] [address] Social History Tobacco Use Types Packs/Day Years [...] on file documented as of this encounter Plan of Treatment Upcoming Encounters Date Type Department Care Team (Late st Contact Info) Description 05/27/2025 3:00 PM EST Office Visit [facility] [address] [place] [phone] Jaycee Orona, RN [address] [place] [address] 05/29/2025 2:00 PM EST Telemedicine Visit [facility] [address] [place] [address] Mandeep Boogie, RD [address] [place] [address] 09/18/2025 1:40 PM EDT Office Visit [facility] [address] [place] [phone] Leonidas Laguna RHD [address] [place] [address] documented as of this encounter Visit Diagnoses Not on filedocumented in this encounter Additional Health Concerns Assessment Noted Time PHQ-9 Depression Total Score: 0 01/10/20 10:10 AM PDT A Depression follow-up plan has been documented for the patient 12/21/2024 10:25 PM PDT documented as of this encounter Care Teams Computer System Validation Specialist Relationship Specialty Start Date End Date José Miguel Vega PA [address] [place] [address] PCP - General Internal Medicine 05/10/16 documented as of this encounter
--- NOTE | ~2025-03-30 | XR_ITS ---
CLINICAL HISTORY: great toe pain and swelling 3 view left foot Comparison: None provided Findings: Soft tissue swelling in the great toe. Cortical irregularities in the distal phalanx with intra-articular extension. No dislocation. [id number] arthritic changes. Probable ankle effusion. No radiopaque foreign body. Second through 5th digit mallet toes. Mild plantar tendon enthesopathy. IMPRESSION: Nondisplaced comminuted intra-articular fracture of the distal phalanx of the great toe. This document has been electronically signed by: Shruti Melton DO on 03/30/2025 13:20:54
--- NOTE | 2025-03-30 12:16 | ED.GENADULT ---
HPI - General Adult General Chief complaint: Extremity Problem Stated complaint: Infected Toe L Foot Time Seen by Provider: 03/30/25 13:20 Source: patient Mode of arrival: ambulatory Limitations: no limitations History of Present Illness ED Provider: Lina Fu APRN HPI narrative: This is a 74-year-old male who has a history of insulin dependent diabetes who presents the ER with complaints of left great toe pain which he noticed throughout the night. He reports that a few nights ago he had a fall with an injury to the great toe but was not having a lot of significant pain until last evening. He also reports some redness and warmth over the toe. He denies any fevers, chills, numbness or tingling of the extremities. He reports he does get frequent pedicures and is worried that he might have an infection. Additionally he is waiting for his refill to come from his pharmacy for his Lantus. Patient believes he should have it if not by tonight by tomorrow. He was only able to give himself 10 units of Lantus this morning versus his normal 30 units and he would like us to dose him while he is here in the emergency room Related Data Previous Rx's ?Medication ?Instructions ?Recorded sulfamethoxazole 800 1 tab PO BID 5 days #10 tabs 12/10/24 mg-trimethoprim 160 mg tablet (Bactrim DS) tadalafil 5 mg tablet 5 mg PO DAILY 30 days #30 tabs 01/02/25 cephalexin 500 mg capsule 500 mg PO BID #14 caps 03/30/25 Allergies Allergy/AdvReac Type Severity Reaction Status Date / Time No Known Allergies Allergy Verified 03/30/25 12:44 Review of Systems Review of Systems: Yes all other systems are reviewed and are negative Constitutional: Constitutional: Reports no additional constitutional complaints, Denies body ache(s), Denies chills, Denies fever(s), Denies headache(s) and Denies weakness Eyes: Eyes: Reports no additional eye complaints and Denies change in vision ENT: Reports system reviewed and no additional complaints, except as documented, Denies dizziness, Denies headache(s), Denies nasal congestion, Denies nasal discharge and Denies neck pain Cardiovascular: Cardiovascular: Reports no additional cardiovascular complaints, Denies chest pain, Denies leg edema and Denies dyspnea Respiratory: Respiratory: Reports no additional respiratory complaints, Denies cough and Denies dyspnea Gastrointestinal: Gastrointestinal: Reports no additional gastrointestinal complaints, Denies abdominal pain, Denies diarrhea, Denies nausea and Denies vomiting Genitourinary: Genitourinary: Denies urinary incontinence Musculoskeletal: Musculoskeletal: Reports no additional musculoskeletal complaints, Denies back pain, Reports arthralgias, Reports joint swelling, Reports limited range of motion, Denies neck pain, Denies numbness and Denies tingling Integumentary/Breasts: Skin/Breast: Reports system reviewed and no additional complaints, except as docu, Reports swelling, Reports erythema and Denies rash Neurologic: Reports system reviewed and no additional complaints, except as documented, Denies Abnormal speech present, Denies dizziness, Denies headache(s), Denies numbness, Denies tingling and Denies weakness PMFSH Past Medical History Attestation statement: The following information was validated with the patient. Source: old records reviewed and nursing notes reviewed Medical History Cellulitis and abscess of lower extremity Left bundle branch block (LBBB) Slow transit constipation Gall stones Herpes DM w/o complication type II Abdominal pain in male Hip pain BPH (benign prostatic hyperplasia) H/O left bundle branch block DEB (obstructive sleep apnea) Obesity Osteoarthritis of both knees Neck pain Low back pain Dyslipidemia Diabetes mellitus Social History Social History Advance Directives: Yes Advance Directives Information Provided: No Advance Directives on File: No Physical Exam ED Vital Signs: Vital Signs - 24 hr 03/30/25 12:43 Temperature 98.2 F Pulse Rate 62 Respiratory Rate 16 Blood Pressure 122/72 Pulse Oximetry 98 Oxygen Delivery Method Room Air BMI result Body Mass Index 23.0 Const General: cooperative, healthy appearing, comfortable and no acute distress Orientation/consciousness: patient oriented x3 Limitations: no limitations HENMT Head: Yes normal to inspection Ears: hearing grossly normal bilaterally General nose exam: Normal external nose present Face and sinus: Yes normal facial exam Mouth: Normal oral and palatal mucosa present Throat: Yes posterior oropharynx normal Eyes General: appearance normal, both eyes and all related structures Pupils: Equal, round and reactive pupils present Neck Neck: Yes normal visual inspection Chest Chest palpation & inspection: normal inspection of the chest Resp Effort & Inspection: normal respiratory effort Auscultation: clear to auscultation bilaterally Cardio Rate: regular rate Rhythm: regular rhythm Peripheral pulses: Peripheral pulses 2+ throughout GI Inspection: Yes normal to inspection Palpation (GI): Soft to palpation and nontender Auscultation: normal bowel sounds Back/Spine/Pelvis Thoracic/Lumbar Spine: thoracic and lumbar spine normal to inspection Skin General skin exam: no rashes or lesions noted Neuro General: patient oriented x3, no focal motor deficits and normal sensation to monofilament Cranial nerves: Yes Equal, round and reactive pupils present Cognition (Neuro): normal cognition Speech: No Abnormal speech present Gait exam (Neuro): Normal gait present Motor exam (neuro): 5/5 motor strength present throughout Extrem Other: Course Course Course Narrative: This is a rapid medical exam performed by Roberto Gonzalez NP: Additional HPI, ROS, PE not included below will be deferred to primary provider. Patient is a 74y/o M with pmhx DM and BPH presenting with complaint of redness and swelling to left great toe for the past few days. States he recently started using a glucometer to check his sugars. States he ran out of his Lantus. Plan: labs, xray Reevaluation(s) Reevaluation #1: X-ray shows a nondisplaced comminuted intra-articular fracture of the distal phalanx of the great toe. Labs are at baseline. Patient may have swelling and bruising secondary to the fracture. He is quite concerned that he has cellulitis. There is some mild redness and warmth although this may be reactive from his fracture. However after further discussion with patient I will place him on a brief course of antibiotics. He was also dose with his Lantus while he was in the emergency room. Given postop shoe for home. Recommend follow up with orthopedics as needed. Reviewed worrisome signs and symptoms of when to return to the emergency room. Comfortable plan for discharge home. Procedures Orthopedic Splinting/Casting Injury #1: Side: left Lower Extremity Injury Location: foot Lower Extremity Immobilizer: post-op shoe Medical Decision Making Medical Decision Making MDM Narrative: This is a 74-year-old male who has a history of insulin dependent diabetes who presents the ER with complaints of left great toe pain which he noticed throughout the night. He reports that a few nights ago he had a fall with an injury to the great toe but was not having a lot of significant pain until last evening. He also reports some redness and warmth over the toe. He denies any fevers, chills, numbness or tingling of the extremities. He reports he does get frequent pedicures and is worried that he might have an infection. Additionally he is waiting for his refill to come from his pharmacy for his Lantus. Patient believes he should have it if not by tonight by tomorrow. He was only able to give himself 10 units of Lantus this morning versus his normal 30 units and he would like us to dose him while he is here in the emergency room. There is swelling and bruising on exam. There is limited flexion and extension of the toe due to pain. There does seem to be some mild redness and warmth just proximal to this. It is not circumferential. CMS is intact distally. Will review x-rays and labs ordered from triage Differential Diagnosis Differential Diagnoses: The differential diagnosis associated with the presentation includes Fracture, osteomyelitis, cellulitis, gout Admission/Observation Consideration of admission/observation: Escalation of care including admission/observation considered See course of care Lab Data MDM Lab Attestation statement: I reviewed the patient's lab results. 03/30/25 12:37 03/30/25 12:37 Labs: Lab Results 03/30/25 Range/Units 12:37 WBC 7.4 (4.8-10.8) X10*3/uL RBC 4.54 L (4.60-5.80) X10*6/uL Hgb 13.3 L (14.0-18.0) g/dl Hct 38.5 L (42.0-52.0) % MCV 84.8 (80.0-98.0) fL MCH 29.3 (27.0-33.0) pg MCHC 34.5 (31.0-36.0) g/dl RDW 12.4 (11.0-16.0) % Plt Count 277 (160-400) X10*3/uL MPV 9.4 (9.4-12.4) fL Immature Gran % (Auto) 0.3 (0.0-0.4) % Neut % (Auto) 65.5 (45-73) % Lymph % (Auto) 24.0 (20-40) % [place] % (Auto) 7.7 (2-11) % Eos % (Auto) 2.0 (0-4) % Baso % (Auto) 0.5 (0-2) % Lymph # (Auto) 1.8 (1.2-4.9) X10*3/uL [place] # (Auto) 0.6 (0.1-1.2) X10*3/uL Eos # (Auto) 0.2 (0.0-0.4) X10*3/uL Baso # (Auto) 0.0 (0.0-0.2) X10*3/uL Abs Immat Gran (auto) 0.02 (0.00-0.03) X10*3/uL Absolute Neuts (auto) 4.9 (2.0-8.3) x10*3/uL Absolute Nucleated RBC 0.000 (0.0-0.012) X10*3/uL Nucleated RBC % (auto) 0.0 (0.0-0.2) /100WBC ESR 14 (0-15) MM/HR Sodium 141 (135-145) mmol/L Potassium 4.2 (3.3-5.1) mmol/L Chloride 108 (96-108) mmol/L Carbon Dioxide 27 (22-29) mmol/L Anion Gap 10 L (12-20) BUN 19 H (9-16) mg/dL Creatinine 0.75 (0.5-1.4) mg/dL Estim Creat Clear Calc 93.9 Estimated GFR > 60 Random Glucose 105 (60-115) mg/dL Calcium 9.5 (8.4-10.2) mg/dL Total Bilirubin 0.5 (0.0-1.0) mg/dL AST 22 (5-37) U/L ALT 12 (0-40) U/L Alkaline Phosphatase 81 (39-117) U/L C-Reactive Protein 0.58 H (< or = 0.50) mg/dL Total Protein 6.6 (6.5-8.0) g/dL Albumin 3.9 (3.5-5.0) g/dL Independent Interpretation I performed an independent interpretation of an: Plain X-Ray Interpretation: I independently viewed the x-ray and agree with the radiology report Radiology Impression Discussion of test interpretation with radiology: I have reviewed the radiologist's reading. Radiologist Impression: [id number] [place] [address] XRay Report Signed Patient: Dm Nicole MR#: [id number] : 1950 Acct:[id number] Age/Sex: 74 / M ADM Date: 03/30/25 Loc: HO.ED Attending Dr: Ordering Physician: Leia Gonzalez NP Date of Service: 03/30/25 Procedure(s): XR foot LT min 3V Accession Number(s): [id number] cc: José Miguel Vega; Leia Gonzalez NP~ Reason for Exam: great toe pain and swelling CLINICAL HISTORY: great toe pain and swelling 3 view left foot Comparison: None provided Findings: Soft tissue swelling in the great toe. Cortical irregularities in the distal phalanx with intra-articular extension. No dislocation. [id number]-uu-giqxbmbm arthritic changes. Probable ankle effusion. No radiopaque foreign body. Second through 5th digit mallet toes. Mild plantar tendon enthesopathy. IMPRESSION: Nondisplaced comminuted intra-articular fracture of the distal phalanx of the great toe. This document has been electronically signed by: Shruti Melton DO on 03/30/2025 13:20:54 Discharge Plan Discharge Clinical Impression: Fracture of toe, Cellulitis Patient Disposition: Home, Self-Care Instructions: Toe Fracture (ED), Cellulitis (ED), Post Surgical Shoe (ED) Additional Instructions: Your x-ray shows a fracture in the left great toe Use the shoe for comfort with the ambulate Elevate the extremity, apply ice Take the antibiotics as prescribed Tylenol for pain Follow-up with orthopedics Return for increasing redness, increasing swelling, fever Prescriptions: New cephalexin 500 mg capsule 500 mg PO BID Qty: 14 0RF No Action sulfamethoxazole-trimethoprim [Bactrim DS] 800-160 mg tablet 1 tab PO BID 5 Days Qty: 10 0RF tadalafil 5 mg tablet 5 mg PO DAILY 30 Days Qty: 30 1RF Rx Instructions: USE [employer] NOT INSURANCE [id number] [facility] [id number] Member [id number] Referrals: [facility] Orthopedic Surgeons [Provider Group] Print Language: Turkmen
[2025-03-30 12:43] VITALS: BP 122/72; PULSE 62; RESP 16; TEMP 36.8; O2SAT 98; BMI 23.0
[2025-03-30 12:45] LABS: MANUAL DIFF FLAG NO
[2025-03-30 12:46] LABS: Hematocrit 38.5 % (42.0-52.0); Hemoglobin 13.3 g/dl (14.0-18.0); Imm Gran Abs Auto 0.02 X10*3/uL (0.00-0.03); Imm Gran Pct Auto 0.3 % (0.0-0.4); Lymphocytes Absolute Auto 1.8 X10*3/uL (1.2-4.9); Mean Corpuscular HGB Conc 34.5 g/dl (31.0-36.0); Mean Corpuscular Hemoglobin 29.3 pg (27.0-33.0); Mean Corpuscular Volume 84.8 fL (80.0-98.0); NRBC Abs Auto 0.000 X10*3/uL (0.0-0.012); NRBC Pct Auto 0.0 /100WBC (0.0-0.2); Platelet Count 277 X10*3/uL (160-400); Red Blood Count 4.54 X10*6/uL (4.60-5.80); White Blood Count 7.4 X10*3/uL (4.8-10.8)
[2025-03-30 13:03] LABS: Alanine Aminotransferase 12 U/L (0-40); Albumin Level 3.9 g/dL (3.5-5.0); Alkaline Phosphatase 81 U/L (39-117); Anion Gap 10 (12-20); Aspartate Amino Transferase 22 U/L (5-37); Blood Urea Nitrogen 19 mg/dL (9-16); Calcium 9.5 mg/dL (8.4-10.2); Carbon Dioxide 27 mmol/L (22-29); Chloride 108 mmol/L (96-108); Creatinine Clr Calc Pharmacy 93.9; Estimated Glomerular Filt Rate > 60; Potassium 4.2 mmol/L (3.3-5.1); Sodium 141 mmol/L (135-145); Total Protein 6.6 g/dL (6.5-8.0)
--- OUTSIDE RECORDS SUMMARY | 2025-03-30 13:20 | XMS_ITS | Clinical Summary ---
Author Organization [facility] Address [address] [place] [address] Phone Care Team Providers Care Traction Power Engineer Name Role Phone José Miguel Vega Primary Care Provider [phone] Surgical History Surgery Date Site/Laterality Comments COLONOSCOPY [...] Description 04/10/2025 1:30 PM EDT Office Visit [facility] [address] [facility] [address] [place] [address] Bao Navarro MD [address] [place] [address] [address] [place] [address] Health Maintenance Due Date Last Done Comments Diabetes: Annual GFR (Glomer ular Filtration Rate) 1950 Diabetes: Annual Foot Exam 1960 Diabetes: Annual Retina Eye Exam 1960 DTaP,Tdap,and Td Vaccines (1 - Tdap) 1969 Pneumococcal Vaccine: 50+ Ye ars (1 of 1 - PCV) 2000 Zoster Vaccines (1 of 2) 2000 Depression Screening 07/04/2024 Cholesterol Screening (Lipid Panel) 10/30/2024 Colorectal Cancer Screening: Colonoscopy 10/30/2024 Falls Risk Assessment 10/30/2024 Hepatitis C Screening 10/30/2024 Medicare Annual Wellness Visit 10/30/2024 Social Influencers of Health Screening 10/30/2024 Diabetes: Annual Urine Albumin-Creatinine Ratio (uACR) 12/06/2024 Diabetes: Blood Sugar Contro l Test (HGBA1C) 12/06/2024 COVID-19 Vaccine ( - 2023-2 5 season) 2025 Influenza Vaccine (#1) 2025 RSV Immunization Adult Patie nts (1 [...] complete this topic Insurance [employer] MEDICARE Care Teams Traction Power Engineer Relationship Specialty Start Date End Date José Miguel Vega PA [address] [place] [address] PCP - General Physician Net C Developer 10/30/24
--- OUTSIDE RECORDS SUMMARY | 2025-03-30 13:20 | XMS_ITS | Encounter Summary ---
Author Organization [facility] Address [address] [place] [address] Care Team Providers Care Epidemiologist Name Role Phone José Miguel Vega Primary Care Provider [phone] Encounter Details Date Type Department Care Team (Late st Contact Info) Description 03/27/2025 Results Follow-Up [facility] Main [address] [place] [address] AntilRene, PharmD [address] [place] [address] Social History Tobacco Use Types Packs/Day Years [...] Description 05/27/2025 3:00 PM EST [facility] [address] [place] [phone] Jaycee Orona RN [address] [place] [address] 05/29/2025 2:00 PM EST Telemedicine Visit [facility] [address] [place] [phone] [address] [place] [address] 09/18/2025 1:40 PM EDT Office Visit [facility] [address] [place] [phone] Leonidas Laguna RHD [address] [place] [address] documented as of this encounter Visit Diagnoses Not on filedocumented in this encounter Additional Health Concerns Assessment Noted Time PHQ-9 Depression Total Score: 0 01/10/20 10:10 AM PDT A Depression follow-up plan has been documented for the patient 12/21/2024 10:25 PM PDT documented as of this encounter Care Teams Epidemiologist Relationship Specialty Start Date End Date José Miguel Vega PA [address] [place] [address] PCP - General Internal Medicine 05/10/16 documented as of this encounter
--- OUTSIDE RECORDS SUMMARY | 2025-03-30 13:21 | XMS_ITS | Data Portability ---
Author Organization [place] [facility] Address [address] [address] Care Team Providers Care Wood Handler Name Role Phone BOB CORNELL Primary Care [...] Organization Details Last Modified Time Details Appointments None record ed. Lab None record ed. Referral None record ed. Procedures None record ed. Surgeries None record ed. Imaging None record ed. Medication Orders None record ed. Patient TargetsNo targets recorded. Patient InstructionsNo instructions recorded. Reason for Referral None Reported. Results Created Date Observation Date Name Description Value Unit Range Abnormal Flag Note LastModifiedBy Organization Detail LastModifiedTime 11/09/19 25 11/07/2024 audio gram No observ ation record ed. [email or web address] [address], [place], [address], 11/08/2024 16:20:32 Result Notes None recorded. Problems Name Problem SNOMED Code Status Onset Date Resolution Date Notes Provider Name and Address Organization Details Recorded Time Mixed sleep apnea 222183513 Active 2023 JUDE QUINTERO MD [address] [facility] [address], [place], [address], [place] - [facility] 4 22:19:50 Impacted cerumen in right ear 3554010196861 103 Active 2024 JUDE QUINTERO MD [address] [facility] [address], [place], [address], [place] - [facility] 5 15:09:27 Bilateral tinnitus 3210965796978 Active 2024 MARY GARNER PA-C [address] [facility] [address], [place], [address], [place] - [facility] 14:27:54 Sensorineur al hearing loss of bilateral ears 846480373 Active 2024 Cierra PECK [address] [facility] [address], [place], [address], [facility] - [facility] 5 13:59:43 Problem Notes None recorded. Procedures Surgical History Date Name Laterality Status Provider Name and Address Organization Details Recorded Time 11/07/2024 Comp Audio with Tymps - 04981 & 65973 completed Cierra PECK [address] [facility] [address], [place], [address], [facility] - [facility] 11/07/2024 13:59:19 07/10/2024 Wax_DP completed JUDE QUINTERO MD [address] [facility] [address] [address], [place], [address], [place] - [facility] 07/10/2024 15:09:16 Imaging Results None recorded. [...] Updated DateTime 07/10/2024 182.88 cm 22.4 kg/m2 08051.74 g Sayra Davenport [place] - [facility] 07/10/2024 14:42:51 Date Recorded Body height Provider Name an d Address Organization Details Last Updated DateTime 11/07/2024 182.88 cm ANGELO CARIAS ROSSANA - [facility] 11/07/2024 13:19:30 Social History None recorded. Functional Status Question [...] Diagnosis SNOMED-CT Code Diagnosis ICD10 Code Diagnosis IMO Codes Diagnosis Note [id number] JUDE QUINTERO MD [facility] [address] [address] 07/10/2024 14:21:14 07/10/2024 15:11:20 Mixed sleep apnea 813706970 G47.39 Impacted c erumen in right ear 1312787530 636294 H61.21 Ears were meticulous ly cleaned RIGHT today with fine pics, curettes and/or suction. Patient is encouraged to avoid Q-tips in their ears relative to packing the wax in tighter. They may use the corner of their bath towel to gently clean the nooks and crannies of the external ears as needed. Yearly visits or as needed are recommende d. Bilateral tinnitus 20020 53593 102 H93.13 [id number] MARY GARNER PA-C [facility] [address] [address] 11/07/2024 13:18:28 11/07/2024 14:31:14 Sensorineural hearing loss of bilateral ears 418346634 H90.3 [id number] Audiologic al evaluation results: Right ear: Normal hearing from 250 through 2000 Hz sloping to a moderate sensorineu ral hearing loss with excellent word recognitio n. Left ear: Normal hearing from 250 through 2000 Hz sloping to a moderate sensorineu ral hearing loss with excellent word recognitio n. Tympanomet ry: Right Ear:Type A Left Ear:Type A Bilateral tinnitus 90001 71455 102 H93.13 [id number] Health Concerns Section Related Observation LastModified by Organization Detai ls LastModified Time None Recorded Concern Status LastModified by Organization Details LastModified Time None Recorded Advance Directives Directive None Recorded Payers Insurance Date Sequence Insurance Name Policy Number Policy Waller Covered Member ID Waller Member ID Guarantor Name 02/06/2025 1 [place] [employer] Dm A Corey [id number] Dm Corey 02/06/2025 2 [facility] - DOS ON OR AFTER 2022 - MEDICARE [place]VANTAGE [place] (MEDICARE REPLACEMENT/AD VANTAGE - PPO) Dm Corey [id number] Dm Corey 02/06/2025 1 [place] [employer] Dm A Corey [id number] Dm Ocrey 02/06/2025 2 [place] [facility] Dm Corey [id number] Dm Corey 02/06/2025 1 [facility] (MEDICARE REPLACEMENT/AD VANTAGE - PPO) [id number] Dm A Corey [id number] Dm Corey 02/06/2025 1 [facility] (MEDICARE REPLACEMENT/AD VANTAGE - PPO) Dm A Corey [id number] Dm Corey 02/06/2025 2 [place] [employer] [employer] Dm A Corey [id number] Dm Corey Notes Date Note Type Note Provider Name and Address Organization Details Recorded Time 07/10/2024 text/html ROS as noted in the HPI Severe mixed sleep apnea04/14/2023 Home PS[facility] [place] [facility] [address] 26AHI 48.7Central and mixed events 324/528 = 61%CPAP trial delayed secondary to difficulty receiving equipmentgets some claustrophobia regarding masksPatient undergoing evaluation for significant weight loss secondary concern of 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 This has been gradual for many years. Denies ear pain, drainage, or dizziness. Denies prior ear infections or ear surgeries. 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 DWIGHT GEORGE MD [address] [place] [address], [place], [address], [place] - [facility] 11/07/2024 16:56:22
--- OUTSIDE RECORDS SUMMARY | 2025-03-30 13:21 | XMS_ITS | Clinical Summary ---
Author Organization [facility] Address [address] [place] [address] Care Team Providers Care Peoplesoft Developer Name Role Phone José Miguel Vega Primary Care Provider [phone] Source Comments PLEASE NOTE, if this patient is a minor, it may be UNLAWFUL to discuss sensitive information that is contained in these records (such as FAMILY PLANNING, MENTAL HEALTH or SUBSTANCE ABUSE) with the minor patient's parent or other person without the patient's specific authorization.[facility] Allergies No known active allergies Medications [id number] h-rcjymoq-hkj (KRILL OIL) [id number] mg cap Take by mouth 021 Active [...] hyperglycemia, with long-term current use of insulin ([facility]),Urinary incontinence, unspecified type Use one brief twice daily for urinary incontinence. 120 Each 023 Active MISCELLANEOUS MEDICAL SUPPLY [facility] Patient to use daily to assist with mobility. 1 Each 023 Active MISCELLANEOUS MEDICAL SUPPLY MISCIndications:L [...] hyperglycemia, with long-term current use of insulin (CMS & HHS-[facility]),Diabetic polyneuropathy associated with type 2 diabetes mellitus (CMS & HHS-HCC),Caries,C frances of pulp,Mixed stress and urge urinary incontinence,Semaj [...] by mouth once daily 90 Tablet 4 Active minoxidiL (ROGAINE) 2 % external solutionIndicatio ns:Hair loss disorder Apply topically 2 (two) times daily 60 mL 2 024 Active blood-glucose meter monitoring kitIndications:Ty pe 2 diabetes mellitus without complication, without long-term current use of insulin (CMS & HHS-HCC) as needed for blood glucose monitoring 1 Each 024 Active blood sugar diagnostic (FREESTYLE LITE STRIPS) stripsIndications :Type 2 diabetes mellitus without complication, without long-term current use of insulin ([facility]) Use to test blood sugar once daily 100 Each 024 Active ketorolac (ACULAR) 0.5 % ophthalmic solution Authorized by: JENNA BLACKMON 024 Active lancets 28 gaugeIndications: Type 2 diabetes mellitus with hyperglycemia, with long-term current use of insulin ([facility]) Use to check blood sugar up to 3 times daily (Freestyle Lancets) 100 Each 024 Active alcohol swabsIndications: Type 2 diabetes mellitus with hyperglycemia, with long-term current use of insulin ([facility]) Use to clean finger to test blood sugar up to 3 times daily. 100 Each 024 Active blood sugar diagnostic (BLOOD GLUCOSE TEST) stripsIndications :Type 2 diabetes mellitus with hyperglycemia, with long-term current use of insulin ([facility]) Use to test blood glucose at least 3 times daily. (Freestyle Precision Damien) 100 Each 024 Active atorvastatin (LIPITOR) 80 mg tabletIndications :Type 2 diabetes mellitus with hyperglycemia, with long-term current use of insulin ([facility]),Medicati on refill Take 1 Tablet by mouth once daily 90 Tablet 3 024 Active dorzolamide (TRUSOPT) 2 % ophthalmic solution 024 Active glycerin, adult, suppository Place 1 Suppository rectally as needed for constipation 30 Suppository 1 024 Active insulin lispro 100 unit/mL injection penIndications:Ty pe 2 diabetes mellitus with hyperglycemia, with long-term current use of insulin ([facility]) Below 100 - no insulin, 101 to 150 - 5 units, 151 to 200 - 10 units, 201 to 250 - 15 units, 251 to 300 - 20 units, 301 to 350 - 25 units; Max 75 units/day 15 mL 2 024 Active insulin glargine (LANTUS SOLOSTAR U-100 INSULIN) 100 unit/mL (3 mL) penIndications:Ty pe 2 diabetes mellitus with hyperglycemia, with long-term current use of insulin ([facility]),Uncontro lled type 2 diabetes mellitus with hyperglycemia ([facility]) Inject 30 units hs subcutaneously 15 mL 3 Active SURE COMFORT PEN NEEDLE 32 gauge x 1/4 ndle Use 4 times daily to inject insulin 100 Each Active cholecalciferol, vitamin D3, (VITAMIN D3) 1,250 mcg (50,000 unit) capsuleIndication s:Vitamin D deficiency TAKE ONE CAPSULE BY MOUTH ONCE A WEEK 12 Capsule 5 Active latanoprost (XALATAN) 0.005 % ophthalmic solutionIndicatio ns:ocular hypertension INSTILL ONE DROP INTO BOTH EYES NIGHTLY AT BEDTIME Indications: increased pressure in the eye 10 mL 2 Active tadalafiL (CIALIS) 5 mg tablet Take 5 mg by mouth once daily Active blood-glucose,rec eiver,cont (FREESTYLE VIVIANE 3 READER) miscIndications:T ype 2 diabetes mellitus with hyperglycemia, with long-term current use of insulin ([facility]) Use to test blood glucose at least 3 times daily (Freestyle Viviane 3 reader). 1 Each Active blood-glucose sensor (FREESTYLE VIVIANE 3 PLUS SENSOR) deviIndications:T ype 2 diabetes mellitus with hyperglycemia, with long-term current use of insulin ([facility]) Apply 1 sensor to back of upper arm every 15 days. Use to continuously monitor glucose. (Freestyle Viviane 3 Plus sensor). 2 Each Active metFORMIN (GLUCOPHAGE) 1,000 mg tabletIndications :Type 2 diabetes mellitus with hyperglycemia, with long-term current use of insulin ([facility]),Diabetic polyneuropathy associated with type 2 diabetes mellitus ([facility]) Take 1 Tablet by mouth 2 (two) times daily with a meal. 60 Tablet 2 Active dapagliflozin propanediol (FARXIGA) 5 mg tabIndications:Ty pe 2 diabetes mellitus without complication, without long-term current use of insulin ([facility]) Take 1 Tablet by mouth every morning. 30 Tablet 2 025 Active Active Problems Patient Care Coordination [...] routine healing 08/28/2018 Overview (10/02/2018): 08/25/18 - [facility] ED - S/P slip and fall with right ankle pain. Xray reveals - Oblique minimally displaced fracture through the distal fibula w/ associated swelling. Patient set to follow up with [facility] ortho. Cellulitis and abscess of lower extremity 2015 Overview (04/27/2016): Hospitalized about 2.5 weeks ago at [facility], April 09 for cellulitis from Tuesday night [...] hyperglycemia, with long-term current use of insulin ([facility]) 07/31/2013 Overview (06/19/2019): 03/20/19 - Latest HgbA1c [...] medication adjustments PRN. - eye doctor at [place]- 11/19/15- No retinopathy -[address] [place] [address] jay guy. -cardiology at [facility]. - dr. federica pan -[facility] endocrinology. - Abdominal pain in male patient [...] BPH (benign prostatic hyperplasia) 03/25/2013 Diabetes mellitus ([facility]) 03/20/2013 Dyslipidemia 03/20/2013 Low back pain 03/20/2013 Neck pain 03/20/2013 Resolved Problems Problem Noted Date Diagnosed Date Resolved Date Acute cystitis with hematuria 06/18/2015 02/20/2021 Knee pain, bilateral 07/31/2013 014 Abdominal pain 07/03/2013 08/06/2013 Vitamin D deficiency 01/25/2013 013 Encounters Date Type Department Care Team Description 03/28/2025 2:00 PM EDT Telemedicine Visit [address] [address] Mandeep Boogie, SOWMYA 03/27/2025 Results Follow-Up [address] [address] Rene Castro PharmD 03/26/2025 3:00 PM EDT Office Visit [address] [address] Rene Castro PharmD 03/21/2025 1:40 PM EDT Office Visit [facility] [address] [place] [phone] Leonidas Laguna RHD 03/11/2025 3:00 PM EDT Office Visit [facility] [address] [place] [phone] Jaycee Orona RN 02/25/2025 10:20 AM EDT Office Visit [address] [address] Mandeep Boogie, RD 01/23/2025 9:00 AM EDT Telemedicine Visit [address] [address] Mandeep Boogie, SOWMYA 01/07/2025 2:20 PM EDT Telemedicine Visit [address] [address] Rene Castro, PharmD from Last 3 Months Immunizations Immunization Administration Dates Next Due Flu, High Dose, 65y+, Fluzon e High Dose 04/06/2023,04/22/2022,06/16/2021 Flu, Preservative Free 07/19/2018 INFLUENZA, SEASONAL, INJECTABLE 03/27/2016,07/09,03/20/2013 Influenza (FLUZONE), high-do se, trivalent, PF 03/26/2025,03/26/2024,05/10/2019 MODERNA COVID-19 VACCINE BIV ALENT, BLUE CAP, 6M+ 04/22/2022 Moderna COVID-19 Vaccine, re d cap blue label, 12+ Primary Series 11/12/2021,06/17/2021,09/20/2020,08/23 PNEUMOCOCCAL CONJUGATE PCV 13 06/03/2016 PNEUMOCOCCAL POLYSACCHARIDE PPV23 (Pneumovax 23) 09/04/2019,07/09/2014 Pfizer COVID-19 (Comirnaty), Mrna, Lnp-s, Pf, James-sucrose, 30 Mcg/0.3 Ml, 12yr+ 03/26/2024,11/30/2023 TDAP 07/19/2018,12/24/2014 ZOSTER VACCINE, RECOMBINANT (SHINGRIX) ,12/08/2021 Family History Medical History Relation Name Comments [...] 3:13 PM EDT Oxygen Saturation 99% 03/26/2025 3: 13 PM EDT Inhaled Oxygen Concentration - - Weight 76.6 kg (168 lb 12.8 oz) 03/26/2025 3:13 PM EDT Height 180.3 cm (5' 11 ) 03/26/2025 3:13 PM EDT Body Mass Index 23.54 03/26/2025 3:13 PM EDT Plan of Treatment Upcoming Encounters Date Type Department Care Team (Late st Contact Info) Description 05/27/2025 3:00 PM EST Office Visit [facility] [address] [place] [phone] Jaycee Orona, RN [address] [place] [address] 05/29/2025 2:00 PM EST Telemedicine Visit [facility] [address] [place] [phone] Mandeep Boogie, RD [address] [place] [address] 09/18/2025 1:40 PM EDT Office Visit [facility] [address] [place] [phone] Leonidas Laguna RHD [address] [place] [address] Health Maintenance Due Date Last Done Comments Medicare Annual Wellness Visit [address] Colonography 09/20/1995 Colonoscopy 09/20/1995 Fecal DNA 09/20/1995 Flexible Sigmoidoscopy 09/20/1995 Retinopathy Screening 11/18/2016 11/19/2015 Depression Annual Screen 07/04/2024 024, 09/04/2019, 07/19/2018, Additional history exists Urine Albumin Creatinine Rat io Screening 11/29/2024 11/30/2023, 11/30/2023, 07/27/2022, Additional history exists Dental Perio Charting 01/25/2025 01/24/2024 Falls Prevention 02/22/2025 02/23/2024, 08/12/2021 [id number] ( season) 2025 03/26/2024, 11/30/2023, 04/22/2022, Additional history exists Hemoglobin A1c 06/25/2025 03/26/2025, 10/02, 04/18/2024, Additional history exists Dental Prophy 09/20/2025 03/21/2025, 09/01, 01/24/2024, Additional history exists Tobacco Screening 10/18/2025 10/18/2024, , 09/03/2021, Additional history exists Diabetes Foot Exam 03/11/2026 03/11/2025, 0 12/05/2024, 11/30/2023, Additional history exists Dental BW 03/23/2026 03/21/2025, 09/01, 01/24/2024, Additional history exists Dental Examination 03/23/2026 03/21/2025, 0 09/18/2024, 01/24/2024, Additional history exists Lipid Screening 03/26/2026 03/26/2025, 11/02, 12/08/2021, Additional history exists Serum Creatinine 03/26/2026 03/26/2025, , 09/08/2022, Additional history exists Dental FMX/Pano 01/09/2028 01/06/2023, 11/25/2021 Imm-DTaP/Tdap/Td (3 - Td or Tdap) 07/19/2028 019, 12/24/2014 Colorectal Cancer Screening 05/10/2029 FIT/gFOBT 05/10/2029 05/10/2019 (Avelina henry by Outside Provider) Imm-Pneumococcal 50+ Completed 09/04/2019, 06/03/2016, 07/09/2014 Imm-Zoster, Recombinant Completed 04/22/2022, 12/08 Hepatitis C Screening Completed 11/30/2023 , 11/11/2022, 04/12/2019, Additional history exists Alcohol and Drug Screen Completed 07/18/19, 07/07/2023, 09/08/2022, Additional history exists Imm-Influenza Completed 03/26/2025, 03/05, 04/06/2023, Additional history exists Procedures Procedure Name Priority Date/Time Associated Diagnosis Comments HGBA1C W/MPG Routine 03/26/2025 3:57 PM EDT LIPID PANEL Routine 03/26/2025 3:57 PM EDT Type 2 diabetes mellitus with hyperglycemia, with long-term current use of insulin ([facility]) COMPREHENSIVE METABOLIC PANEL Routine 03/26/2025 3:57 PM EDT Type 2 diabetes mellitus with hyperglycemia, with long-term current use of insulin ([facility]) PERIODIC ORAL EVALUATION ESTABLISHED PATIENT Routine 03/21/2025 1:40 PM EDT Encounter for dental examination DENTAL CASE MANAGEMENT - MOTIVATIONAL INTV Routine 03/21/2025 1:40 PM EDT Encounter for dental examination PROPHYLAXIS - ADULT Routine 03/21/2025 1 :40 PM EDT Encounter for dental examination BITEWINGS - FOUR RADIOGRAPHIC IMAGES Routine 03/21/2025 1:40 PM EDT Encounter for dental examination CARIES RISK ASSESSMENT & DOC FINDING HIGH RISK Routine 03/21/2025 1:40 PM EDT Encounter for dental examination NUTRITIONAL COUNSELING CONTROL OF DENTAL DISEASE Routine 03/21/2025 1:40 PM EDT Encounter for dental examination ORAL HYGIENE INSTRUCTIONS Routine 03/21/2025 1:40 PM EDT Encounter for dental examination ORAL CANCER SCREENING Routine 03/21/2025 1:40 PM EDT Encounter for dental examination CASE PRESENTATION SUBS DTL & EXTENSIVE TX PLN Routine 03/21/2025 1:40 PM EDT Encounter for dental examination OTHER ORDERS SCANNED DOCUMENT 01/07/2025 3:00 AM EDT OTHER ORDERS SCANNED DOCUMENT 01/02/2025 3:00 AM EDT COMP PERIODONTAL EVALUATION - NEW/EST PATIENT Routine 01/24/2024 3:00 PM EDT Caries HEPATITIS C AB W/RFLX HCV RNA, QT, RT PCR Routine 11/30/2023 3:00 PM EDT Type 2 diabetes mellitus with hyperglycemia, with long-term current use of insulin ([facility]) Dyslipidemia Diabetic foot ([facility]) Primary open angle glaucoma (POAG) of both eyes, mild stage MICROALBUMIN/CREATININ E RATIO, URINE, RANDOM Routine 11/30/2023 2:57 PM EDT Type 2 diabetes mellitus with hyperglycemia, with long-term current use of insulin ([facility]) PANORAMIC RADIOGRAPHIC IMAGE Routine 01/06/2023 2:00 PM EDT Caries of pulp from Last 3 Months or Most Recently Relevant to Health Maintenance Results * (ABNORMAL) HGBA1C W/MPG Routine (03/26/2025 3:57 PM EDT) HEMOGLOBIN A1C 12.3(H) <5.7 % 03/27/2025 9:38 AM EDT [facility] MEAN PLASMA GLUCOSE 361 mg/dL (calc) 03/27/2025 9:38 AM EDT [facility] 03/26/2025 3:57 PM EDT 03/27/2025 3:12 AM EDT Narrative [facility] - 03/27/2025 9:38 AM EDT [...] of diabetes for children. . us Rene Penalozakarmen PharmD LAB - BLOOD DRAW Final Resu lt [facility] [address] [place] [address], [facility] [address] [place] [address] * (ABNORMAL) LIPID PANEL Routine (03/26/2025 3:57 PM EDT) CHOLESTEROL, TOTAL 173 <200 mg/dL 03/28/2025 3:20 AM EDT [facility] HDL CHOLESTEROL 52 > OR = 40 mg/dL 03/28/2025 3:20 AM EDT [facility] TRIGLYCERIDES 180(H) <150 mg/dL 03/28/2025 3:20 AM EDT [facility] LDL-CHOLESTEROL 93 mg/dL (calc) 03/28/2025 3:20 AM EDT [facility] CHOL/HDLC RATIO 3.3 <5.0 (calc) 03/28/2025 3:20 AM EDT [facility] NON-HDL CHOLESTEROL 121 <130 mg/dL (calc) 03/28/2025 3:20 AM EDT [facility] Blood Blood / Unknown 03/26/2025 3 :57 PM EDT 03/27/2025 7:06 AM EDT Narrative [facility] - 03/28/2025 3:28 AM EDT FASTING:NO Reference range: <100 . Desirable range <100 mg/dL for primary prevention; <70 mg/dL for patients with CHD or diabetic patients with > or = 2 CHD risk factors. . LDL-C is now calculated using the Db calculation, which is a validated novel method providing better accuracy than the Friedewald equation in the estimation of LDL-C. Fortunato [place] et al. ISRAEL. 2013;310(19): 1012-4332 (http://education.Action Engine.Solyndra/faq/JOZ272) For patients with diabetes plus 1 major ASCVD risk factor, treating to a non-HDL-C goal of <100 mg/dL (LDL-C of <70 mg/dL) is considered a therapeutic option. us Rene Castro PharmD LAB - BLOOD DRAW Final Resu lt [facility] [address] [address], [facility] [address] [place] [address] * (ABNORMAL) COMPREHENSIVE METABOLIC PANEL Routine (03/26/2025 3:57 PM EDT) GLUCOSE 227(H) 65 - 139 mg/dL 03/28/2025 3:20 AM [facility] UREA NITROGEN (BUN) 17 7 - 25 mg/dL 03/28/2025 3:20 AM [facility] CREATININE (blood) 0.78 0.70 - 1.28 mg/dL 03/28/2025 3:20 AM [facility] EGFR 94 > OR = 60 mL/min/1. 73m2 03/28/2025 3:20 AM [facility] BUN/CREATININE RATIO SEE NOTE: 6 - 22 (calc) 03/28/2025 3:20 AM [facility]DS[facility] SODIUM 136 135 - 146 mmol/L 03/28/2025 3:20 AM [facility] POTASSIUM 4.5 3.5 - 5.3 mmol/L 03/28/2025 3:20 AM [facility] CHLORIDE 98 98 - 110 mmol/L 03/28/2025 3:20 AM [facility] CARBON DIOXIDE 29 20 - 32 mmol/L 03/28/2025 3:20 AM [facility] CALCIUM 9.5 8.6 - 10.3 mg/dL 03/28/2025 3:20 AM [facility] PROTEIN, TOTAL 6.9 6.1 - 8.1 g/dL 03/28/2025 3:20 AM [facility] ALBUMIN 4.0 3.6 - 5.1 g/dL 03/28/2025 3:20 AM [facility] GLOBULIN 2.9 1.9 - 3.7 g/dL (calc) 03/28/2025 3:20 AM [facility] ALBUMIN/GLOBULI N RATIO 1.4 1.0 - 2.5 (calc) 03/28/2025 3:20 AM EDT [facility] BILIRUBIN, TOTAL 0.5 0.2 - 1.2 mg/dL 03/28/2025 3:20 AM EDT [facility] ALKALINE PHOSPHATASE 78 35 - 144 U/L 03/28/2025 3:20 AM EDT [facility] AST 14 10 - 35 U/L 03/28/2025 3:20 AM EDT [facility] ALT 13 9 - 46 U/L 03/28/2025 3:20 AM EDT [facility] Blood Blood / Unknown 03/26/2025 3 :57 PM EDT 03/27/2025 7:06 AM EDT Narrative [facility] - 03/28/2025 3:28 AM EDT FASTING:NO . Non-fasting reference interval . Not Reported: BUN and Creatinine are within reference range. . Rene PinedaD LAB - BLOOD DRAW Final Resu lt [facility] [address] [place] [id number], [facility] [address] [address] * OTHER ORDERS SCANNED DOCUMENT (01/07/2025 3:00 AM EDT) Only the most recent of2 resultswithin the time period is included. 01/07/2025 3:00 AM EDT José Miguel MARINA SCAN OTHER ORDERS Final Result * HEPATITIS C AB W/RFLX HCV RNA, QT, RT PCR (11/30/2023 3:00 PM EDT) HEPATITIS C ANTIBODY NON-REACT PRETTY NON-REACT PRETTY [facility] Comment: HCV antibody was non-reactive. There is no laboratory evidence of HCV infection. In most cases, no further action is required. However, if recent HCV exposure is suspected, a test for HCV RNA (test code 26130) is suggested. For additional information please refer to http://education.GridCraft/faq/NDZ66l5 (This link is being provided for informational/ educational purposes only.) Blood Blood / Unknown 11/30/2023 3 :00 PM EDT 11/30/2023 3:00 PM EDT José Miguel MARINA LAB - BLOOD DRAW Edited Result - Final Performing Organization Address City/[facility]/ZIP Co de Phone Number [facility] [address] [address], [facility] [address] [address] * MICROALBUMIN/CREATININE RATIO, URINE, RANDOM (11/30/2023 2:57 PM EDT) Pathologist [facility] CREATININE, RANDOM URINE 25 20 - 320 mg/dL [facility] MICROALBUMIN <0.2 mg/dL [facility] [facility] Comment: Reference Range Not established MICROALBUMIN/CREA TININE RATIO, RANDOM URINE NOTE <30 [employer] [facility] Comment: NOTE: The urine albumin value is less than 0.2 mg/dL therefore we are unable to calculate excretion and/or creatinine ratio. The ADA defines abnormalities in albumin excretion as follows: Albuminuria Category Result (mg/g creatinine) Normal to Mildly increased <30 Moderately increased 30-299 Severely increased > OR = 300 The ADA recommends that at least two of three specimens collected within a 3-6 month period be abnormal before considering a patient to be within a diagnostic category. Urine Urine specimen / Unknown 11/30/2023 2:57 PM EDT 11/30/2023 2:57 PM EDT Haydee Garcia PA-C LAB URINE AMBULATORY Final Result Performing Organization Address City/[facility]/ZIP Co de Phone Number [facility] [address] [address], [facility] [address] [address] from Last 3 Months or Most Recently Relevant to Health Maintenance Insurance [facility] [employer] MEDICARE COMPLETE CHO Care Teams Peoplesoft Developer Relationship Specialty Start Date End Date José Miguel Vega PA [address] [place] [address] PCP - General Internal Medicine 05/10/16
[2025-03-30] MEDS: Insulin Glargine,Hum.rec.anlog 100 UNIT/ML 10 ML VIAL 20 UNIT SUBCUT (14:03)
[2025-03-30 14:07] VITALS: BP 122/72; PULSE 62; RESP 16; TEMP 36.8; O2SAT 98
== END 2025-03-30 14:07 | disposition home or self-care (01) ==
PROVIDERS: Registered Nurse Emergency; Emergency Provider Emergency Medicine Emergency Medical Services; PCP Physician Assistant
DX: S92.402A Displaced unspecified fracture of left great toe, initial encounter for closed fracture (principal); M79.672 Pain in left foot; X50.1XXA Overexertion from prolonged static or awkward postures, initial encounter; Y93.9 Activity, unspecified; Y92.9 Unspecified place or not applicable; Y99.8 Other external cause status
CPT/HCPCS: 36415; 73630; 80053; 85025; 85652; 86140; 99282; 99283

== ENCOUNTER → 2025-03-30 12:20 | Outpatient (BNV) | payer MEDICARE, SELFPAY | PROVIDERS: Emergency Provider Emergency Medicine Emergency Medical Services; PCP Physician Assistant; Visit Provider Radiology Diagnostic Radiology | DX: S92.422A Displaced fracture of distal phalanx of left great toe, initial encounter for closed fracture (principal) | CPT/HCPCS: 73630 ==

== ENCOUNTER 2025-04-16 10:02 | Outpatient (AMB) | payer MEDICARE, SELFPAY ==
--- NOTE | 2025-04-16 10:13 | MHC.OFFVIS ---
Vital Signs 04/16/25 10:21 Height 6 ft Weight 169 lb BMI 22.9 Intake Visit Reasons: New Pt- left great toe tcjjeazc-fjhdlchjrw-4/25/25 Intake Note: Dm is a 74 old male who presents today as a New Patient for evaluation of his left great toe fracture and cellulitis. Patient was seen at [facility] on 03/30/25 where he reported a fall a few days prior to visit. Patient reports pain in the left great toe since the fall and onset of redness and swelling of the entire of the left foot and up the calf that stated 03/29/25. XR where taken showing a fracture of the toe. He was placed in a surgical shoe and placed on a course of antibiotics for cellulitis. Patient reports he completed his course of antibiotics and his cellulitis has improved. He states he has history of a bilateral ankle fracture. Patient has not been taking OTC pain medication. Allergies No Known Allergies Allergy (Verified 04/16/25 10:21) HPI HPI New Pt- left great toe kpklcddc-yprlybwxrt-7/25/25: Details: The patient is a 74-year-old male past medical history of diabetes mellitus type 2 on insulin presenting for left big toe injury. The patient notes that he fell coming out of his bed on March 30. He then presented to the emergency room and received x-rays and was diagnosed with a big toe fracture. He was discharged with a surgical boot and antibiotics to rule out cellulitis. He completed his antibiotics and believes the swelling and pain has improved. The patient has a history of diabetes mellitus. States he has not been taking his insulin recently. Also notes he lost 68 pounds intentionally over the past 1-2 years through diet changes. [facility] Medical History Cellulitis and abscess of lower extremity Left bundle branch block (LBBB) Slow transit constipation Gall stones Herpes DM w/o complication type II Abdominal pain in male Hip pain BPH (benign prostatic hyperplasia) H/O left bundle branch block DEB (obstructive sleep apnea) Obesity Osteoarthritis of both knees Neck pain Low back pain Dyslipidemia Diabetes mellitus Review of Systems Const All systems reviewed & are unremarkable except as noted in HPI and below Physical Exam Vital Signs: BMI result Body Mass Index 22.9 Extrem Other: *Bilateral Lower Extremity Focused Exam Vascular: DP/PT 2/4, CFT<3s to digits, TG warm to cool, varicositiest bilateral feet. Moderate left hallux edema. Derm: No ecchymosis or bruising. No erythema or clinical signs of infection. No increased warmth to the left hallux. Neuro: Protective sensation grossly intact to bilateral lower extremities MSK: Mild tenderness on palpation and range of motion of left hallux IPJ and MTPJ Results Reviewed Results Reviewed: Podiatry X-ray Read: 03/30/2025 X-ray left foot 3 views (AP, MO, Lateral) reviewed which shows nondisplaced spiral fracture of the hallux distal phalanx, intra-articular. Bone density appears osteopenic. I personally reviewed the imaging and my findings are listed above. Assessment & Plan Assessment & Plan (1) Fracture of distal phalanx of great toe: Code(s): S92.423A - Displaced fracture of distal phalanx of unspecified great toe, initial encounter for closed fracture Category: Medical Qualifiers: Encounter type: initial encounter Fracture alignment: nondisplaced Fracture type: closed Laterality: left Qualified Code(s): S92.425A - Nondisplaced fracture of distal phalanx of left great toe, initial encounter for closed fracture Plan: Reviewed left foot x-rays with the patient. Continue rest ice compression elevation. Continue weight-bearing Cam boot as tolerated. Recommended vitamin D/calcium supplementation. Follow up in 3 weeks with new x-rays (2) Diabetes mellitus: Code(s): E11.9 - Type 2 diabetes mellitus without complications Category: Medical Qualifiers: Diabetes mellitus complication status: without complication Diabetes mellitus vermin exterminator insulin use: with vermin exterminator use Diabetes mellitus type: type 2 Qualified Code(s): E11.9 - Type 2 diabetes mellitus without complications; Z79.4 - long term care phlebotomist (current) use of insulin Plan: Risk Stratification: No current ulceration, infection, or pre-ulcerative lesion. No loss of protective sensation or peripheral arterial disease. No plans for further testing/referrals for non-invasive vascular studies. Patient is at low risk for diabetic foot complications at this time. Recommendations: Continue routine foot care and daily self-inspection. Recommend moisturizing daily. Recommend supportive proper fitting shoe-wear. The patient may require diabetic shoes in the future. Reinforced diabetic foot education and risks from peripheral neuropathy. Orders: Orders XR foot LT min 3V 3 Weeks S92.425A - Nondisplaced fracture of distal phalanx of left great toe, initial encounter for closed fracture Coding Level of Care Code New Pt Level 4 (55143) Diagnoses Closed nondisplaced fracture of distal phalanx of left great toe, initial encounter S92.425A Encounter type: initial encounter Fracture alignment: nondisplaced Fracture type: closed Laterality: left Type 2 diabetes mellitus without complication, with long-term current use of insulin E11.9; Z79.4 Diabetes mellitus complication status: without complication Diabetes mellitus vermin exterminator insulin use: with alf use Diabetes mellitus type: type 2 Time Spent (min) 30
[2025-04-16 10:21] VITALS: BMI 22.9
--- OUTSIDE RECORDS SUMMARY | 2025-04-16 11:30 | XMS_ITS | Clinical Summary ---
Author Organization [facility] Address [address] [place] [address] Care Team Providers Care Hedge Trimmer Name Role Phone José Miguel Vega Primary Care Provider [phone] Source Comments PLEASE NOTE, if this patient is a minor, it may be UNLAWFUL to discuss sensitive information that is contained in these records (such as FAMILY PLANNING, MENTAL HEALTH or SUBSTANCE ABUSE) with the minor patient's parent or other person without the patient's specific authorization.[facility] Allergies No known active allergies Medications kshql-[id number]-dha-ep v-hzlseld-zrf (KRILL OIL) [id number] mg cap Take by mouth 021 Active [...] with hyperglycemia, with long-term current use of insulin,Urinary incontinence, unspecified type Use one brief twice daily for urinary incontinence. 120 Each 023 Active [facility] Patient to use daily to assist with [...] with hyperglycemia, with long-term current use of insulin,Diabetic polyneuropathy associated with type 2 diabetes mellitus,Caries,C frances of pulp,Mixed stress and urge urinary [...] complication, without long-term current use of insulin as needed for blood glucose monitoring 1 Each 024 Active blood sugar diagnostic (FREESTYLE LITE STRIPS) stripsIndications :Type 2 diabetes mellitus without complication, without long-term current use of insulin Use to test blood sugar once daily 100 Each 024 Active ketorolac (ACULAR) 0.5 % ophthalmic solution Authorized by: JENNA BLACKMON Active lancets 28 gaugeIndications: Type 2 diabetes mellitus with hyperglycemia, with long-term current use of insulin Use to check blood sugar up to 3 times daily (Freestyle Lancets) 100 Each 11 024 Active alcohol swabsIndications: Type 2 diabetes mellitus with hyperglycemia, with long-term current use of insulin Use to clean finger to test blood sugar up to 3 times daily. 100 Each 024 Active blood sugar diagnostic (BLOOD GLUCOSE TEST) stripsIndications :Type 2 diabetes mellitus with hyperglycemia, with long-term current use of insulin Use to test blood glucose at least 3 times daily. (Freestyle Precision Damien) 100 Each 5 024 Active atorvastatin (LIPITOR) 80 mg tabletIndications :Type 2 diabetes mellitus with hyperglycemia, with long-term current use of insulin,Medicatio n refill Take 1 Tablet by mouth once daily 90 Tablet 3 024 Active dorzolamide (TRUSOPT) 2 % ophthalmic solution 024 Active glycerin, adult, suppository Place 1 Suppository rectally as needed for constipation 30 Suppository 1 024 Active insulin lispro 100 unit/mL injection penIndications:Ty pe 2 diabetes mellitus with hyperglycemia, with long-term current use of insulin Below 100 - no insulin, 101 to 150 - 5 units, 151 to 200 - 10 units, 201 to 250 - 15 units, 251 to 300 - 20 units, 301 to 350 - 25 units; Max 75 units/day 15 mL 2 024 Active SURE COMFORT PEN NEEDLE 32 gauge x 1/4 ndle Use 4 times daily to inject insulin 100 Each Active cholecalciferol, vitamin D3, (VITAMIN D3) 1,250 mcg (50,000 unit) capsuleIndication s:Vitamin D deficiency TAKE ONE CAPSULE BY MOUTH ONCE A WEEK 12 Capsule 5 024 Active latanoprost (XALATAN) 0.005 % ophthalmic solutionIndicatio ns:ocular hypertension INSTILL ONE DROP INTO BOTH EYES NIGHTLY AT BEDTIME Indications: increased pressure in the eye 10 mL 2 024 Active tadalafiL (CIALIS) 5 mg tablet Take 5 mg by mouth once daily 025 Active blood-glucose,rec eiver,cont (FREESTYLE VIVIANE 3 READER) miscIndications:T ype 2 diabetes mellitus with hyperglycemia, with long-term current use of insulin Use to test blood glucose at least 3 times daily (Freestyle Viviane 3 reader). 1 Each 025 Active blood-glucose sensor (FREESTYLE VIVIANE 3 PLUS SENSOR) deviIndications:T ype 2 diabetes mellitus with hyperglycemia, with long-term current use of insulin Apply 1 sensor to back of upper arm every 15 days. Use to continuously monitor glucose. (Freestyle Viviane 3 Plus sensor). 2 Each 025 Active metFORMIN (GLUCOPHAGE) 1,000 mg tabletIndications :Type 2 diabetes mellitus with hyperglycemia, with long-term current use of insulin,Diabetic polyneuropathy associated with type 2 diabetes mellitus Take 1 Tablet by mouth 2 (two) times daily with a meal. 60 Tablet 2 025 Active dapagliflozin propanediol (FARXIGA) 5 mg tabIndications:Ty pe 2 diabetes mellitus without complication, without long-term current use of insulin Take 1 Tablet by mouth every morning. 30 Tablet 2 025 Active insulin glargine (LANTUS SOLOSTAR U-100 INSULIN) 100 unit/mL (3 mL) penIndications:Ty pe 2 diabetes mellitus with hyperglycemia, with long-term current use of insulin,Uncontrol led type 2 diabetes mellitus with hyperglycemia Inject 30 units hs subcutaneously. 15 mL 3 025 Active insulin glargine (LANTUS SOLOSTAR U-100 INSULIN) 100 unit/mL (3 mL) penIndications:Ty pe 2 diabetes mellitus with hyperglycemia, with long-term current use of insulin,Uncontrol led type 2 diabetes mellitus with hyperglycemia Inject 30 units hs subcutaneously 15 mL 3 024 2024 Disconti nued(Reo rder (E-Cance l Not Sent)) Active Problems Patient Care Coordination No te [...] routine healing 08/28/2018 Overview (10/02/2018): 08/25/18 - [facility] ED - S/P slip and fall with right ankle pain. Xray reveals - Oblique minimally displaced fracture through the distal fibula w/ associated swelling. Patient set to follow up with [facility] ortho. Cellulitis and abscess of lower extremity 2015 Overview (04/27/2016): Hospitalized about 2.5 weeks ago at [facility], April 09 for cellulitis from Tuesday [...] hyperglycemia, with long-term current use of insulin 07/31/2013 Overview (06/19/2019): 03/20/19 - Latest HgbA1c [...] medication adjustments PRN. - eye doctor at [place]- 11/19/15- No retinopathy -[address] [place] [address] jay guy. -cardiology at [facility]. - dr. federica pan -[facility] endocrinology. - Abdominal pain in male patient [...] BPH (benign prostatic hyperplasia) 03/25/2013 Diabetes mellitus 03/20/2013 Dyslipidemia 03/20/2013 Low back pain 03/20/2013 Neck pain 03/20/2013 Resolved Problems Problem Noted Date Diagnosed Date Resolved Date Acute cystitis with hematuria 06/18/2015 02/20/2021 Knee pain, bilateral 07/31/2013 014 Abdominal pain 07/03/2013 08/06/2013 Vitamin D deficiency 01/25/2013 013 Encounters Date Type Department Care Team Description 03/28/2025 2:00 PM EDT Telemedicine Visit [address] [address] 03/27/2025 Results Follow-Up [address] [address] Rene Castro, PharmD 03/26/2025 3:00 PM EDT Office Visit [address] [address] Rene Castro, PharmD 03/21/2025 1:40 PM EDT Office Visit [facility] [address] [place] [address] Leonidas Laguna RHD 03/11/2025 3:00 PM EDT Office Visit [facility] [address] [place] [phone] Jaycee Orona RN 02/25/2025 10:20 AM EDT Office Visit [address] [address] 01/23/2025 9:00 AM EDT Telemedicine Visit [address] [address] from Last 3 Months Immunizations Immunization Administration [...] Description 05/27/2025 3:00 PM EST Office Visit [facility] [address] [place] [phone] Jaycee Orona RN [address] [place] [address] 05/29/2025 2:00 PM EST Telemedicine Visit [facility] [address] [place] [phone] Mandeep Boogie, RD [address] [place] [address] 09/18/2025 1:40 PM EDT Office Visit [facility] [address] [place] [phone] Leonidas Laguna RHD [address] [place] [address] Health Maintenance Due Date Last Done Comments Medicare Annual Wellness Visit [address] CT Colonography 09/20/1995 Colonoscopy 09/20/1995 Fecal DNA 09/20/1995 Flexible Sigmoidoscopy 09/20/1995 Retinopathy Screening 11/18/2016 11/19/2015 Depression Annual Screen 07/04/2024 024, 09/04/2019, 07/19/2018, Additional history exists Urine Albumin Creatinine Rat io Screening 11/29/2024 11/30/2023, 11/30/2023, 07/27/2022, Additional history exists Dental Perio Charting 01/25/2025 01/24/2024 Falls Prevention 02/22/2025 02/23/2024, 08/12/2021 [id number] ( season) 2025 03/26/2024, 11/30/2023, 04/22/2022, Additional [...] Procedure Name Priority Date/Time Associated Diagnosis Comments IMAGING SCANNED DOCUMENT 03/30/2025 3:00 AM EDT IMAGING SCANNED DOCUMENT 03/30/2025 3:00 AM EDT HGBA1C W/MPG Routine 03/26/2025 3:57 PM EDT LIPID PANEL Routine 03/26/2025 3:57 PM EDT Type 2 diabetes mellitus with hyperglycemia, with long-term current use of insulin ([facility]) COMPREHENSIVE METABOLIC PANEL Routine 03/26/2025 3:57 PM EDT Type 2 diabetes mellitus with hyperglycemia, with long-term current use of insulin ([facility]) PERIODIC ORAL EVALUATION ESTABLISHED PATIENT Routine 03/21/2025 [...] 1:40 PM EDT Encounter for dental examination COMP PERIODONTAL EVALUATION - NEW/EST PATIENT Routine 01/24/2024 3:00 PM EDT Caries HEPATITIS C AB W/RFLX HCV RNA, QT, RT PCR Routine 11/30/2023 3:00 PM EDT Type 2 diabetes mellitus with hyperglycemia, with long-term current use of insulin ([facility]) Dyslipidemia Diabetic foot ([facility]) Primary open angle glaucoma (POAG) of both eyes, mild stage MICROALBUMIN/CREATININ E RATIO, URINE, RANDOM Routine 11/30/2023 2:57 PM EDT Type 2 diabetes mellitus with hyperglycemia, with long-term current use of insulin ([facility]) PANORAMIC RADIOGRAPHIC IMAGE Routine 01/06/2023 2:00 PM EDT Caries of pulp from Last 3 Months or Most Recently Relevant to Health Maintenance Results * IMAGING SCANNED DOCUMENT (03/30/2025 3:00 AM EDT) Only the most recent of2 resultswithin the time period is included. 03/30/2025 3:00 AM EDT José Miguel MARINA SCAN IMAGING Final Result * (ABNORMAL) HGBA1C W/MPG Routine (03/26/2025 3:57 PM EDT) HEMOGLOBIN A1C 12.3(H) <5.7 % 03/27/2025 9:38 AM EDT [facility] MEAN PLASMA GLUCOSE 361 mg/dL (calc) 03/27/2025 9:38 AM EDT [facility] 03/26/2025 3:57 PM EDT 03/27/2025 3:12 AM EDT Narrative [facility] - 03/27/2025 9:38 AM EDT FASTING:NO For [...] diagnosis of diabetes for children. . us [facility] Matthew Oscar LAB - BLOOD DRAW Final Resu lt [facility] [address] [place] [address], [facility] [address] [place] [address] * (ABNORMAL) LIPID PANEL Routine (03/26/2025 3:57 PM EDT) CHOLESTEROL, TOTAL 173 <200 mg/dL 03/28/2025 3:20 AM EDT [facility] HDL CHOLESTEROL 52 > OR = 40 mg/dL 03/28/2025 3:20 AM EDT [facility] TRIGLYCERIDES 180(H) <150 mg/dL 03/28/2025 3:20 AM EDT [facility] LDL-CHOLESTEROL 93 mg/dL (calc) 03/28/2025 3:20 AM EDT [facility] CHOL/HDLC RATIO 3.3 <5.0 (calc) 03/28/2025 3:20 AM EDT [facility] NON-HDL CHOLESTEROL 121 <130 mg/dL (calc) 03/28/2025 3:20 AM EDT [facility] Blood Blood / Unknown 03/26/2025 3 :57 PM EDT 03/27/2025 7:06 AM EDT Narrative [facility] - 03/28/2025 3:28 AM EDT FASTING:NO Reference [...] LDL-C. [place] et al. ISRA[place]. 2013;310(19): 6526-6920 (http://education.[employer].NUOFFER/faq/BEL417) For patients with diabetes plus 1 major ASCVD risk factor, treating to a non-HDL-C goal of <100 mg/dL (LDL-C of <70 mg/dL) is considered a therapeutic option. us Rene Penalozakarmen PharmD LAB - BLOOD DRAW Final Resu lt [facility] [address] [address], [facility] [address] [place] [address] * (ABNORMAL) COMPREHENSIVE METABOLIC PANEL Routine (03/26/2025 3:57 PM EDT) Pathologist [facility] GLUCOSE 227(H) 65 - 139 mg/dL 03/28/2025 3:20 AM EDT [facility] UREA NITROGEN (BUN) 17 7 - 25 mg/dL 03/28/2025 3:20 AM [employer] [facility] CREATININE (blood) 0.78 0.70 - 1.28 mg/dL 03/28/2025 3:20 AM [employer] [facility] EGFR 94 > OR = 60 mL/min/1. 73m2 03/28/2025 3:20 AM [employer] BUN/CREATININE RATIO SEE NOTE: 6 - 22 (calc) 03/28/2025 3:20 AM [employer] [facility] SODIUM 136 135 - 146 mmol/L 03/28/2025 3:20 AM [employer] POTASSIUM 4.5 3.5 - 5.3 mmol/L 03/28/2025 3:20 AM [employer] [facility] CHLORIDE 98 98 - 110 mmol/L 03/28/2025 3:20 AM [employer] [facility] CARBON DIOXIDE 29 20 - 32 mmol/L 03/28/2025 3:20 AM [employer] [facility] CALCIUM 9.5 8.6 - 10.3 mg/dL 03/28/2025 3:20 AM [employer] [facility] PROTEIN, TOTAL 6.9 6.1 - 8.1 g/dL 03/28/2025 3:20 AM [employer] [facility] ALBUMIN 4.0 3.6 - 5.1 g/dL 03/28/2025 3:20 AM [employer] [facility] GLOBULIN 2.9 1.9 - 3.7 g/dL (calc) 03/28/2025 3:20 AM [employer] [facility] ALBUMIN/GLOBULI N RATIO 1.4 1.0 - 2.5 (calc) 03/28/2025 3:20 AM EDT [facility] BILIRUBIN, TOTAL 0.5 0.2 - 1.2 mg/dL 03/28/2025 3:20 AM EDT [facility] ALKALINE PHOSPHATASE 78 35 - 144 U/L 03/28/2025 3:20 AM EDT [facility] AST 14 10 - 35 U/L 03/28/2025 3:20 AM EDT [facility] ALT 13 9 - 46 U/L 03/28/2025 3:20 AM EDT [facility] Blood Blood / Unknown 03/26/2025 3 :57 PM EDT 03/27/2025 7:06 AM EDT Narrative [facility] - 03/28/2025 3:28 AM EDT FASTING:NO . Non-fasting reference interval . Not Reported: BUN and Creatinine are within reference range. . Rene Castro PharmD LAB - BLOOD DRAW Final Resu lt [facility] [address] [place] [address], [facility] [address] [address] * HEPATITIS C AB W/RFLX HCV RNA, QT, RT PCR (11/30/2023 3:00 PM EDT) HEPATITIS C ANTIBODY NON-REACT PRETTY NON-REACT PRETTY [facility] Comment: HCV antibody was non-reactive. There is no laboratory evidence of HCV infection. In most cases, no further action is required. However, if recent HCV exposure is suspected, a test for HCV RNA (test code 39611) is suggested. For additional information please refer to http://education.[employer].NUOFFER/faq/UAA53e5 (This link is being provided for informational/ educational purposes only.) Blood Blood / Unknown 11/30/2023 3 :00 PM EDT 11/30/2023 3:00 PM EDT José Miguel MARINA LAB - BLOOD DRAW Edited Result - Final Performing Organization Address [facility] Co de Phone Number [facility] [address] [address], [facility] [address] [address] * MICROALBUMIN/CREATININE RATIO, URINE, RANDOM (11/30/2023 2:57 PM EDT) CREATININE, RANDOM URINE 25 20 - 320 mg/dL [facility] MICROALBUMIN <0.2 mg/dL [facility] Comment: Reference Range Not established MICROALBUMIN/CREA TININE RATIO, RANDOM URINE NOTE <30 [facility] Comment: NOTE: The urine albumin value [...] URINE AMBULATORY Final Result Performing Organization Address [facility] Co de Phone Number [facility] [address] [address], [facility] [address] [address] from Last 3 Months or Most Recently Relevant to Health Maintenance Insurance [facility] [employer] MEDICARE COMPLETE CHO Care Teams Hedge Trimmer Relationship Specialty Start Date End Date José Miguel Vega PA [address] [place] [id number] PCP - General Internal Medicine 05/10/16
--- OUTSIDE RECORDS SUMMARY | 2025-04-16 11:30 | XMS_ITS | Clinical Summary ---
Author Organization [facility] [employer] [facility] Address [address] [place] [address] Phone Care Team Providers Care Recreation Facility Attendant Name Role Phone José Miguel Vega Primary Care Provider [phone] Active Problems Problem Noted Date Diagnosed Date Atypical chest pain 04/10/2025 Encounters Date Type Department Care Team Description 04/10/[address] [place] [address] Bao Navarro MD from Last 3 Months Surgical History Surgery Date Site/Laterality Comments COLONOSCOPY 2008 PROCEDURE: HISTORICAL COLONOSCOPY; COMMENT: negative COLONOSCOPY 09/03/2019 PROCEDURE: HISTORICAL COLONOSCOPY; COMMENT: Diverticulosis, otherwise normal. Medical History Medical History Date Comments Essential hypertension Type 2 diabetes mellitus with hyperglycemia (CMS /HCC V24, CMS/HCC V28) Low weight Low back pain Neck pain Dyslipidemia DEB (obstructive sleep apnea) LBBB (left bundle branch block) Hip pain BPH (benign prostatic hyperplasia) Family History Medical History Relation Name Comments [...] Health Maintenance Due Date Last Done Comments Colorectal Cancer Screening: Colonoscopy 1950 Diabetes: Annual GFR (Glomer ular Filtration Rate) 1950 Diabetes: Annual Foot Exam 1960 Diabetes: Annual Retina Eye Exam 1960 DTaP,Tdap,and Td Vaccines (1 - Tdap) 1969 Pneumococcal Vaccine: 50+ Ye ars (1 of 1 - PCV) 2000 Zoster Vaccines (1 of 2) 2000 Depression Screening 07/04/2024 Abdominal Aortic Aneurysm (A AA) Screen 10/30/2024 Cholesterol Screening (Lipid Panel) 10/30/2024 Falls Risk Assessment 10/30/2024 Hepatitis C [...] topic Insurance [employer] MEDICARE Care Teams Recreation Facility Attendant Relationship Specialty Start Date End Date José Miguel Vega PA [address] [place] [address] PCP - General Physician Mva Reactor Operator 10/30/24
== END 2025-04-16 10:46 | disposition home or self-care (01) ==
LOC: HO.HPODS 10:02
PROVIDERS: PCP Physician Assistant; Visit Provider Student in an Organized Health Care Education/Training Program
DX: S92.425A Nondisplaced fracture of distal phalanx of left great toe, initial encounter for closed fracture (principal); E11.9 Type 2 diabetes mellitus without complications; Z79.4 Long term (current) use of insulin
CPT/HCPCS: 99204

== ENCOUNTER → 2025-04-16 10:02 | Outpatient (BNVA) | payer MEDICARE, SELFPAY | PROVIDERS: PCP Physician Assistant; Visit Provider Student in an Organized Health Care Education/Training Program | DX: S92.42 Fracture of distal phalanx of great toe (principal); E11.9 Type 2 diabetes mellitus without complications; Z79.4 Long term (current) use of insulin | CPT/HCPCS: 99202 ==

== ENCOUNTER 2025-05-09 14:32 | Outpatient (AMB) | payer MEDICARE, SELFPAY ==
--- NOTE | 2025-05-09 14:49 | MHC.OFFVIS ---
Intake Visit Reasons: cysto Intake Note: Patient presents to office today for a cystoscopy Urology Medication:Tadalafil Antibiotic Allergy:NONE Blood Thinner:NONE Lot#:[id number] Exp:12/11/27 [employer] Heavy Service Required: No Allergies No Known Allergies Allergy (Verified 05/13/25 14:35) HPI Comments Details: 05/09/25--Here for office cystoscopy. LV--12/06/24--73-year-old male presenting with erectile dysfunction and BPH. Here for Follow up, Discussed renal US results, 11/20/24- hydronephosis, elevated PVR. Today's PVR normal. 05/09/25--Cystoscopy findings: enlarged prostate, moderate trabeculations, cellulle changes, no suspicious lesions. Pt not interested in surgery--Plan discussed CIC vs george catheter drainage, fu with Nursing for teaching 09/17/24- 73-year-old male presenting with erectile dysfunction. He has been prescribed a low-dose generic Cialis (5 mg) to aid in achieving and maintaining erections.. His sexual health concerns extend to questions about sperm production, possibly due to age-related changes, prostate function, and diabetes-related retrograde ejaculation. The patient indicates a past stable sexual function and anticipates a relationship in the future. His significant medical history includes diabetes mellitus, currently unmanaged, which has resulted in considerable weight loss. The patient reports urinary frequency, likely related to his diabetes, with ongoing efforts to control blood glucose levels through lifestyle management and previous medication. Additionally, he experiences episodes potentially consistent with retrograde ejaculation. Frequent voiding is noted, exacerbated by fluid intake and diabetes, with a history of attempts at managing erectile dysfunction and urinary issues through pharmaceutical means. The patient is also experiencing gastrointestinal issues post-retreat, unrelated to the primary urological concerns. discussed that Uncontrolled diabetes can damage nerves, including those involved in the ejaculatory process.?This nerve damage can lead to retrograde ejaculation, 09/06/24--Dm is a 73-year-old maole presenting with erectile dysfunction. He reports a complete absence of erections and a lack of semen production, I discussed with the patient the potential contributor of uncontrolled diabetes to his erectile dysfunction. I informed him that his prostate health could also be influencing his symptoms. Discussed the necessity of avoiding sexual activity 48 hours before the PSA test. He agreed to the proposed management plan. [facility] Medical History Cellulitis and abscess of lower extremity Left bundle branch block (LBBB) Slow transit constipation Gall stones Herpes DM w/o complication type II Abdominal pain in male Hip pain BPH (benign prostatic hyperplasia) H/O left bundle branch block DEB (obstructive sleep apnea) Obesity Osteoarthritis of both knees Neck pain Low back pain Dyslipidemia Diabetes mellitus Office Procedures Bladder/Catheter Procedure Details: Patient straight cathed with 14 Fr straight catheter prior to cystoscopy prep due to urinary retention. Emptied out 500ml clear yellow urine. Patient tolerated catheterization. 66971-Uxfqew Bladder Catheter Procedure code (CPT) selection complete Cystoscopy Consent Discussed risk and benefit or proposed procedure with the patient. Information consent for procedure given to the patient. Discussed technical aspects, risks, benefits and alternatives in full. Addressed all of the patient's questions and concerns regarding the procedure. The patient demonstrated knowledge and understanding. They wish to proceed with this procedure. Preparation The patient was prepped in the usual manner. A application support technician was present and in the room. Genitalia was prepped with betadine solution in a sterile manner. Lidocaine Jelly 2% was placed into the urethra and 16Fr flexible Olympus cystoscope was inserted into the meatus after adequate lubrication. Procedure Time out per protocol performed. The flexible cystoscope is passed transurethrally: The bladder was inspected in its entirety with utilization retroflexion displaying: Tumor(s): no suspicious bladder lesions visualized Trabeculation: Moderate with cellule changes, and diverticuli Mucosal Erthema: mild Orifices: normal shape and position Urethra: normal Cystoscopy findings:enlarged prostate, bulbous urethra WNL, no suspicious bladder lesions visualized 71345-Dinminetcd DISPOSABLE SCOPE URO-G FLEXIBLE SCOPE Procedure code (CPT) selection complete Post Void Residual Post Residual Void Post Void Residual (PVR): 720 49829-Mzzp Void Residual by ultrasound Office Meds lidocaine HCl 2 % mucosal jelly in applicator Performing Provider: Hayley Morton MD [facility]forming [facility] [place] Document[facility] (not given) by: Hayley Morton MD on 06/16/25 11:43 Dose Route Admin Location Dispensed Lot Number Expiration Date ND [employer]itness Sales Associate 10 mL intra-urethral mL ciprofloxacin HCl 500 mg tablet Performing Provider: Hayley Morton MD Performing Location: [facility] [place] Document[facility] (not given) by: Hayley Morton MD on 06/16/25 11:43 Dose Route Admin Location Dispensed Lot Number Expiration Date NDC [employer] Sales Associate 500 mg PO tab phenazopyridine 200 mg tablet Performing Provider: Hayley Morton MD Performing Location: [facility] [place] [facility] Documented (not given) by: Hayley Morton MD on 06/16/25 11:43 Dose Route Admin Location Dispensed Lot Number Expiration Date NDC [employer] Sales [employer] 200 mg PO tab Results AMB Urinalysis, Automated UA Leukoctes 0 Alexandre/uL Last Edit by Crystal Robel on 05/09/25 16:19 UA Nitrite Negative Last Edit by Crystal Huston on 05/09/25 16:19 UA Urobilinogen 0.2 mg/dL Last Edit by Mamta Huston on 05/09/25 16:19 UA Protein 0 mg/dL Last Edit by Mamta Huston on 05/09/25 16:19 UA pH 6.0 Last Edit by Mamta Huston on 05/09/25 16:19 UA Blood 0 Bhupinder/uL Last Edit by Crystal Huston on 05/09/25 16:19 UA Specific [place] 1.010 Last Edit by Crystal Huston on 05/09/25 16:19 UA Ketone Negative Last Edit by Crystal Huston on 05/09/25 16:19 UA Bilirubin 0 mg/dL Last Edit by Crystal Huston on 05/09/25 16:19 UA Glucose 1000 mg/dL Last Edit by Crystal Huston on 05/09/25 16:19 Results Reviewed Results Reviewed: Laboratory Last Values Urine pH (Auto) 6.0 05/09/25 16:01 Specific [place] (Auto) 1.010 05/09/25 16:01 Urine Protein (Auto) 0 mg/dL 05/09/25 16:01 Glucose (UA)(Auto) 1000 mg/dL 05/09/25 16:01 Urine Ketones (Auto) Negative 05/09/25 16:01 Urine Blood (Auto) 0 Bhupinder/uL 05/09/25 16:01 Urine Nitrite (Auto) Negative 05/09/25 16:01 Urine Bilirubin (Auto) 0 mg/dL 05/09/25 16:01 Urine Urobilinogen (Auto) 0.2 mg/dL 05/09/25 16:01 Leukocyte Esterase (Auto) 0 Alexandre/uL 05/09/25 16:01 Date of Service: 11/20/24 EXAMINATION: US RETROPERITONEAL COMPLETE (RENAL) CLINICAL INFORMATION: Retrograde ejaculation. Erectil dysfunction.. COMPARISON: None available. TECHNIQUE: Real-time imaging of the kidneys and bladder. FINDINGS: RIGHT KIDNEY: 13 x 5 x 6 cm (SAG x AP x TRV). Volume: 207 cc. Normal echotexture. Normal renal cortical thickness. No gross solid or cystic lesion. Prominent pelvicalyceal system. LEFT KIDNEY: 13 x 6 x 6 cm (SAG x AP x TRV). Volume: 232 cc. Normal echotexture. No solid or cystic lesion. Prominent pelvicalyceal system and extending into the proximal ureter. BLADDER: Fluid-filled. Bilateral ureteral jets are demonstrated. Prevoid bladder volume is 772 mL. Postvoid bladder volume is 620 mL Prostate gland measures 5 x 4 x 6 cm and volume: 66 cc. IMPRESSION: Hydronephrosis, mild to moderate left greater than the right side. 620 cc retained urine volume in a post void image. . Assessment & Plan Assessment & Plan (1) Erectile disorder: Code(s): N52.9 - Male erectile dysfunction, unspecified Category: Medical (2) BPH (benign prostatic hyperplasia): Code(s): N40.0 - Benign prostatic hyperplasia without lower urinary tract symptoms Category: Medical (3) Incomplete bladder emptying: Code(s): R33.9 - Retention of urine, unspecified Category: Medical Plan 05/09/25--Cystoscopy findings: enlarged prostate, moderate trabeculations, cellulle changes, no suspicious lesions. Pt not interested in surgery--Plan discussed CIC vs george catheter drainage, fu with Nursing for teaching Orders: Orders AMB Urinalysis Automated 05/09/25 Z13.9 - Encounter for screening, unspecified AMB Cystoscopy 05/09/25 N40.0 - Benign prostatic hyperplasia without lower urinary tract symptoms, R33.9 - Retention of urine, unspecified AMB Bladder/Catheter Procedure 05/09/25 R33.9 - Retention of urine, unspecified AMB Post Void Residual by ultrasound 05/09/25 R33.9 - Retention of urine, unspecified Medications: New lidocaine HCl 2% 10 mL intra-urethral ONCE 10 mL 0RF N40.0 - Benign prostatic hyperplasia without lower urinary tract symptoms, R33.9 - Retention of urine, unspecified ciprofloxacin HCl 500 mg PO ONCE 1 tab 0RF N40.0 - Benign prostatic hyperplasia without lower urinary tract symptoms, R33.9 - Retention of urine, unspecified phenazopyridine 200 mg PO ONCE 1 tab 0RF N40.0 - Benign prostatic hyperplasia without lower urinary tract symptoms, R33.9 - Retention of urine, unspecified Patient Instructions: The patient had an opportunity to ask questions regarding treatment plan. The patient expressed understanding and agreement with the above treatment plan. The patient is aware they should contact our office by phone for worsening of their current condition or the appearance of new symptoms. Compliance is encouraged with any medications and followup testing that is ordered. It is a privilege to be allowed the opportunity to participate in the urologic care of your patient. If you have any questions or concerns regarding treatment for the above conditions please do not hesitate to contact me. The office telephone contact is [phone]. This note is constructed in part using voice recognition software. While every effort has been made to ensure accuracy table keeper errors may have been included. Yours sincerely, Hayley Morton MD Coding Level of Care Code Procedure Only Diagnoses Erectile disorder N52.9 BPH (benign prostatic hyperplasia) N40.0 Incomplete bladder emptying R33.9 CPT Codes Bladder/Catheter Procedure - CPT: 19654-Inoylb Bladder Catheter ([id number]) Post Residual Void - PVR CPT Code: 86579-Ggub Void Residual by ultrasound ([id number]) Cystoscopy - CPT: 44724-Pkemcaicpb ([id number])
--- OUTSIDE RECORDS SUMMARY | 2025-05-09 17:47 | XMS_ITS | Data Portability ---
Author Organization [place] - [facility], Allergy Address [address] [address] Care Team Providers Care Writing Manager Name Role Phone BOB CORNELL Primary Care Provider [phone] Assessment Encounter Date Assessment Date Assessment LastModified [...] [email or web address] [address], [place], [address], 11/08/2024 16:20:32 Result Notes None recorded. Problems Name Problem SNOMED Code Status Onset Date Resolution Date Notes Provider Name and Address Organization Details Recorded Time Mixed sleep apnea 014612167 Active 2023 JUDE QUINTERO MD [address] [facility], [place], [address], [place] - [facility] 4 22:19:50 Impacted cerumen in right ear 5553928570288 103 Active 2024 JUDE QUINTERO MD [address] [facility], [place], [address], [place] [facility] 5 15:09:27 Bilateral tinnitus 0097307772342 Active 2024 MARY GARNER PA-C [address] [facility], [place], [address], [place] [facility] 14:27:54 Sensorineur al hearing loss of bilateral ears 640277909 Active 2024 Cierra PECK [address] [facility], [place], [address], [facility] - [facility] 5 13:59:43 Problem Notes None recorded. Procedures Surgical History Date Name Laterality Status Provider Name and Address Organization Details Recorded Time 11/07/2024 Comp Audio with Tymps - 45390 & 11572 completed Cierra PECK [address] [facility] [address], [place], [address], [facility] - [facility] [place] [facility] 11/07/2024 13:59:19 07/10/2024 Wax_DP completed JUDE QUINTERO MD [address] [facility] [address], [place], [address], [place] - [facility] 07/10/2024 15:09:16 Imaging Results None recorded. [...] Updated DateTime 07/10/2024 182.88 cm 22.4 kg/m2 78659.74 g Sayra Davenport [place] - [facility] 07/10/2024 14:42:51 Date Recorded Body height Provider Name an d Address Organization Details Last Updated DateTime 11/07/2024 182.88 cm ANGELO CARIAS ROSSANA - [facility] [place] 11/07/2024 13:19:30 Social History None recorded. Functional Status Question Answer Note LastModified by Organization D etails LastModified Time What is your level of alcohol consumption? None [email or web address] Information not available 11/07/2024 Mental Status None recorded. Family History Nothing Reported. Medical History Condition Response Anemia Y Hypertension Y Anxiety Y Depression Y Past Encounters Encounter ID Performer Location Encounter Start Date Encounter Closed Date Diagnosis/Indication Diagnosis SNOMED-CT Code Diagnosis ICD10 Code Diagnosis IMO Codes Diagnosis Note [id number] JUDE QUINTERO MD [facility] [address] [address] 07/10/2024 14:21:14 07/10/2024 15:11:20 Mixed sleep apnea 951806533 G47.39 Impacted c erumen in right ear 1554813071 070438 H61.21 Ears were meticulous ly cleaned RIGHT today with fine pics, curettes and/or suction. Patient is encouraged to avoid Q-tips in their ears relative to packing the wax in tighter. They may use the corner of their bath towel to gently clean the nooks and crannies of the external ears as needed. Yearly visits or as needed are recommende d. Bilateral tinnitus 45616 74162 102 H93.13 [id number] MARY GARNER PA-C [facility] [address] [address] 11/07/2024 13:18:28 11/07/2024 14:31:14 Sensorineural hearing loss of bilateral ears 463607754 H90.3 [id number] Audiologic al evaluation results: Right ear: Normal hearing from 250 through 2000 Hz sloping to a moderate sensorineu ral hearing loss with excellent word recognitio n. Left ear: Normal hearing from 250 through 2000 Hz sloping to a moderate sensorineu ral hearing loss with excellent word recognitio n. Tympanomet ry: Right Ear:Type A Left Ear:Type A Bilateral tinnitus 96849 16195 102 H93.13 [id number] Health Concerns Section Related Observation LastModified by Organization Detai ls LastModified Time None Recorded Concern Status LastModified by Organization Details LastModified Time None Recorded Advance Directives Directive None Recorded Payers Insurance Date Sequence Insurance Name Policy Number Policy Waller Covered Member ID Waller Member ID Guarantor Name 02/06/2025 1 [place] [employer] Dm A Corey [id number] Dm Corey 02/06/2025 2 [facility] - DOS ON OR AFTER 2022 - MEDICARE [place]ANTAGE [place]MED[place]ARE REPLAC[place]/AD VANTAGE - PPO) Dm Corey [id number] Dm Corey 02/06/2025 1 [place] Dm A Corey [id number] Dm Corey 02/06/2025 2 [place] [facility] Dm Corey [id number] Dm Corey 02/06/2025 1 [facility] (MEDICARE REPLACEMENT/AD VANTAGE - PPO) [id number] Dm A Corey [id number] Dm Corey 02/06/2025 1 [facility] (MEDICARE REPLACEMENT/AD VANTAGE - PPO) Dm A Corey [id number] Dm Corey 02/06/2025 2 [place] Dm A Corey [id number] Dm Corey Notes Date Note Type Note Provider Name and Address Organization Details Recorded Time 07/10/2024 text/html ROS as noted in the HPI Severe mixed sleep apnea04/14/2023 [place] [facility] [place] 26AHI 48.7Central and mixed events 324/528 = 61%CPAP trial delayed secondary to difficulty receiving equipmentgets some claustrophobia regarding masksPatient undergoing evaluation for significant weight loss secondary concern of tinnitus 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 This has been gradual for many years. Denies ear pain, drainage, or dizziness. Denies prior ear infections or ear surgeries. 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 DWIGHT GEORGE MD [address] [place] [address], [place], [address], [place] - [facility] 11/07/2024 16:56:22
--- OUTSIDE RECORDS SUMMARY | 2025-05-09 17:47 | XMS_ITS | Clinical Summary ---
Author Organization [facility] Address [address] [facility] [place] [address] Phone Care Team Providers Care Associate Media Planner Name Role Phone José Miguel Vega Primary Care Provider [phone] Active Problems Problem Noted Date Diagnosed Date Atypical chest pain 04/10/2025 Encounters Date Type Department Care Team Description 04/10/[address] [place] [address] Bao Navarro MD from Last [...] topic Insurance [employer] MEDICARE Care Teams Associate Media Planner Relationship Specialty Start Date End Date José Miguel Vega PA [address] [place] [address] PCP - General Physician Beam Doffer 10/30/24
== END 2025-05-09 16:01 | disposition home or self-care (01) ==
LOC: HO.HUSH 14:33
PROVIDERS: PCP Physician Assistant; Visit Provider Urology
DX: N52.9 Male erectile dysfunction, unspecified (principal); N40.0 Benign prostatic hyperplasia without lower urinary tract symptoms; R33.9 Retention of urine, unspecified
CPT/HCPCS: 52000

== ENCOUNTER → 2025-05-09 14:32 | Outpatient (BNVA) | payer MEDICARE, SELFPAY | PROVIDERS: PCP Physician Assistant; Visit Provider Urology | DX: N40.0 Benign prostatic hyperplasia without lower urinary tract symptoms (principal); R33.9 Retention of urine, unspecified | CPT/HCPCS: 51798; 52000; 81003 ==

== ENCOUNTER 2025-05-13 14:01 | Outpatient (AMB) | payer MEDICARE, SELFPAY ==
--- NOTE | 2025-05-13 14:24 | MHC.OFFVIS ---
Vital Signs 05/13/25 14:34 Height 6 ft Weight 169 lb BMI 22.9 Intake Visit Reasons: Follow up with x-ray Intake Note: jaquan is a 74 year old male who presents today for a follow up on his x-rays. patient did not get his x rays done at this time Allergies No Known Allergies Allergy (Verified 05/13/25 14:35) [facility] Follow up with x-ray: Details: The patient is a 74-year-old male past medical history of diabetes mellitus type 2 on insulin returning for 1 month evaluation of left big toe fracture. He states it was unable to receive his x-rays. He states overall that the toe pain and swelling has improved. He believes that his left big toe is now turning further inward. This was complaining of painful toenails. History: The patient notes that he fell coming out of his bed on March 30. He then presented to the emergency room and received x-rays and was diagnosed with a big toe fracture. He was discharged with a surgical boot and antibiotics to rule out cellulitis. He completed his antibiotics and believes the swelling and pain has improved. The patient has a history of diabetes mellitus. States he has not been taking his insulin recently. Also notes he lost 68 pounds intentionally over the past 1-[address] [facility] Medical History Cellulitis and abscess of lower extremity Left bundle branch block (LBBB) Slow transit constipation Gall stones Herpes DM w/o complication type II Abdominal pain in male Hip pain BPH (benign prostatic hyperplasia) H/O left bundle branch block DEB (obstructive sleep apnea) Obesity Osteoarthritis of both knees Neck pain Low back pain Dyslipidemia Diabetes mellitus Review of Systems Const All systems reviewed & are unremarkable except as noted in HPI and below Physical Exam Vital Signs: BMI result Body Mass Index 22.9 Extrem Other: *Bilateral Lower Extremity Focused Diabetic Foot Exam Vascular: DP/PT 2/4, CFT<3s to digits, TG warm to cool, varicosity bilateral feet. Mild left hallux edema. Pedal hair absent. Derm: Skin: Dry feet plantarly bilaterally Interdigital spaces: Clear, no maceration or fungal infection. Nails: Thickened elongated dystrophic discolored toenails times 10 with subungual debris. Neuro: Protective sensation grossly diminished to bilateral lower extremities Msk: Mild pain on palpation of the left hallux IPJ. Flexible left hallux mallet toe deformity. Footwear Assessment: Shoes inspected; appropriate fit, no excessive wear, or foreign objects noted. Office Procedures AMB Debridement/Avulsion Podia Details: Procedure: Nail debridement Location: Bilateral feet Anesthesia: N/A Description: The affected toenails were cleansed with an antiseptic solution. Using sterile nail nippers and a rotary nallely, dystrophic and mycotic nail material was carefully debrided and reduced in thickness. Care was taken to avoid trauma to the surrounding skin and nail bed. All debris was removed as tolerated. The area was inspected for signs of infection or ulceration. Patient tolerated the procedure well without complications. Tolerance: Patient tolerated procedure well, no immediate complications. Class B findings as per physical exam findings above. The patient has a diagnosis of diabetes mellitus and presents with elongated, thickened toenails. Due to underlying diabetic neuropathy and mild vascular disease findings, the patient is at increased risk for complications such as ulceration, infection, and difficulty with self-care. Debridement of elongated toenails is medically necessary to prevent development of pressure-related lesions, reduce risk of secondary infection, and maintain foot health in high-risk comorbidities. 59614-Fzllrvsjjwk of Nail 6+ Procedure code (CPT) selection complete Results Reviewed Results Reviewed: Podiatry X-ray Read: 03/30/2025 X-ray left foot 3 views (AP, MO, Lateral) reviewed which shows nondisplaced spiral fracture of the hallux distal phalanx, intra-articular. Bone density appears osteopenic. I personally reviewed the imaging and my findings are listed above. Assessment & Plan Assessment & Plan (1) Fracture of distal phalanx of great toe: Code(s): S92.423A - Displaced fracture of distal phalanx of unspecified great toe, initial encounter for closed fracture Category: Medical Qualifiers: Encounter type: initial encounter Fracture type: closed Fracture alignment: nondisplaced Laterality: left Qualified Code(s): S92.425A - Nondisplaced fracture of distal phalanx of left great toe, initial encounter for closed fracture Plan: Instructed patient to receive his left foot x-rays Patient may transition to normal shoe wear. Follow up in 1 month with new x-rays (2) Diabetes mellitus: Code(s): E11.9 - Type 2 diabetes mellitus without complications Category: Medical Qualifiers: Diabetes mellitus type: type 2 Diabetes mellitus long term care pharmacist insulin use: with long term care pharmacist use Diabetes mellitus complication status: without complication Qualified Code(s): E11.9 - Type 2 diabetes mellitus without complications; Z79.4 - MCC (current) use of insulin Plan: Risk Stratification: No current ulceration, infection, or pre-ulcerative lesion. No loss of protective sensation or peripheral arterial disease. No plans for further testing/referrals for non-invasive vascular studies. Patient is at low risk for diabetic foot complications at this time. Recommendations: Continue routine foot care and daily self-inspection. Recommend moisturizing daily. Recommend supportive proper fitting shoe-wear. The patient may require diabetic shoes in the future. Reinforced diabetic foot education and risks from peripheral neuropathy. (3) Onychogryphosis: Code(s): L60.2 - Onychogryphosis Category: Medical Plan: Debrided nails x 10 using a sterile nail Nipper. Orders: Orders AMB Debridement/Avulsion Podiatry Today L60.2 - Onychogryphosis Coding Level of Care Code Est Pt Level 3 (90214) Diagnoses Closed nondisplaced fracture of distal phalanx of left great toe, initial encounter S92.425A Encounter type: initial encounter Fracture type: closed Fracture alignment: nondisplaced Laterality: left Type 2 diabetes mellitus without complication, with long-term current use of insulin E11.9; Z79.4 Diabetes mellitus type: type 2 Diabetes mellitus long term care pharmacist insulin use: with jail use Diabetes mellitus complication status: without complication Onychogryphosis L60.2 CPT Codes Skin Debridement - CPT: 41530-Nggbedowyym of Nail 6+ ([id number]) Time Spent (min) 25
[2025-05-13 14:34] VITALS: BMI 22.9
--- OUTSIDE RECORDS SUMMARY | 2025-05-13 16:21 | XMS_ITS | Data Portability ---
Author Organization ID - [facility], Allergy Address [address] [address] Care Team Providers Care Budget Coordinator Name Role Phone BOB CORNELL Primary Care [...] [email or web address] [facility] [address], [place], [address], 11/08/2024 16:20:32 Result Notes None recorded. Problems Name Problem SNOMED Code Status Onset Date Resolution Date Notes Provider Name and Address Organization Details Recorded Time Mixed sleep apnea 085626088 Active 2023 JUDE QUINTERO MD [address] [facility], [place], [address], [place] - [facility] 4 22:19:50 Impacted cerumen in right ear 2013189036559 103 Active 2024 JUDE QUINTERO MD [address] [facility], [place], [address], [place] - [facility] 5 15:09:27 Bilateral tinnitus 4983036384654 Active 2024 MARY GARNER PA-C [address] [facility], [place], [address], [place] - [facility] 14:27:54 Sensorineur al hearing loss of bilateral ears 169883922 Active 2024 Cierra PECK [address] [facility], [place], [address], [facility] - [facility] 5 13:59:43 Problem Notes None recorded. Procedures Surgical History Date Name Laterality Status Provider Name and Address Organization Details Recorded Time 11/07/2024 Comp Audio with Tymps - 07007 & 57598 completed Cierra PECK [address] [facility] [address], [place], [address], [facility] - [facility] 11/07/2024 13:59:19 07/10/2024 Wax_DP completed JUDE QUINTERO MD [address] [facility] [address], [place], [address], [place] - [facility] 07/10/2024 15:09:16 Imaging Results None recorded. [...] Updated DateTime 07/10/2024 182.88 cm 22.4 kg/m2 15057.74 g Sayra Davenport [place] - [facility] 07/10/2024 14:42:51 Date Recorded Body height Provider Name an d Address Organization Details Last Updated DateTime 11/07/2024 182.88 cm ANGELO CARIAS ROSSANA - [facility] 11/07/2024 13:19:30 Social History None recorded. Functional [...] ICD10 Code Diagnosis IMO Codes Diagnosis Note [id number] JUDE QUINTERO MD [facility] [address] [address] 07/10/2024 14:21:14 07/10/2024 15:11:20 Mixed sleep apnea 888812245 G47.39 Impacted c erumen in right ear 0183227341 321192 H61.21 Ears were meticulous ly cleaned RIGHT today with fine pics, curettes and/or suction. Patient is encouraged to avoid Q-tips in their ears relative to packing the wax in tighter. They may use the corner of their bath towel to gently clean the nooks and crannies of the external ears as needed. Yearly visits or as needed are recommende d. Bilateral tinnitus 60676 03665 102 H93.13 [id number] MARY GARNER PA-C [facility] [address] [address] 11/07/2024 13:18:28 11/07/2024 14:31:14 Sensorineural hearing loss of bilateral ears 751489976 H90.3 242122 Audiologic al evaluation results: Right ear: Normal hearing from 250 through 2000 Hz sloping to a moderate sensorineu ral hearing loss with excellent word recognitio n. Left ear: Normal hearing from 250 through 2000 Hz sloping to a moderate sensorineu ral hearing loss with excellent word recognitio n. Tympanomet ry: Right Ear:Type A Left Ear:Type A Bilateral tinnitus 48308 15222 102 H93.13 [id number] Health Concerns Section Related Observation LastModified by Organization Detai ls LastModified Time None Recorded Concern Status LastModified by Organization Details LastModified Time None Recorded Advance Directives Directive None Recorded Payers Insurance Date Sequence Insurance Name Policy Number Policy Waller Covered Member ID Waller Member ID Guarantor Name 02/06/2025 1 [place] [employer] Dm A Corey [id number] Dm Corey 02/06/2025 2 [facility] - DOS ON OR AFTER 2022 - MEDICARE [place]VANTAGE [place]MEDICARE REPLAC[place]/AD VANTAGE - PPO) Dm Corey [id number] Dm Corey 02/06/2025 1 [place] [employer] [employer] Dm A Corey [id number] Dm Corey 02/06/2025 2 [place] [facility] Dm Corey [id number] Dm Corey 02/06/2025 1 [facility] (MEDICARE REPLACEMENT/AD VANTAGE - PPO) [id number] Dm A Corey [id number] Dm Corey 02/06/2025 1 [facility] (MEDICARE REPLACEMENT/AD VANTAGE - PPO) Dm A Corey [id number] Dm Corey 02/06/2025 2 [place] [employer] [employer] Dm A Corey [id number] Dm Corey Notes Date Note Type Note Provider Name and Address Organization Details Recorded Time 07/10/2024 text/html ROS as noted in the HPI Severe mixed sleep apnea04/14/2023 Home PSG at [facility] [address] [place] 26AHI 48.7Central and mixed events 324/528 = 61%CPAP trial delayed secondary to difficulty receiving equipmentgets some claustrophobia regarding masksPatient undergoing evaluation for significant weight loss secondary concern of 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 This has been gradual for many years. Denies ear pain, drainage, or dizziness. Denies prior ear infections or ear surgeries. 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 DWIGHT GEORGE MD [address] [place] [address], [place], [address], [place] - [facility] 11/07/2024 16:56:22
--- OUTSIDE RECORDS SUMMARY | 2025-05-13 16:21 | XMS_ITS | Clinical Summary ---
Author Organization [facility] e-contratos [facility] Address [address] [address] Phone Care Team Providers Care Rural Service Engineer Name Role Phone José Miguel Vega Primary Care Provider [phone] Active Problems Problem Noted Date Diagnosed Date Atypical chest pain 04/10/2025 Encounters Date Type Department Care Team Description 04/10/[address] [place] [address] Bao Navarro MD from Last [...] Years Used Date Smoking Tobacco: Former Cigarettes 0 Q uit: 07/04/1994 Smokeless Tobacco: Former Alcohol [...] Contro l Test (HGBA1C) 12/06/2024 COVID-19 Vaccine (1 - 2023-2 5 season) 2025 Influenza Vaccine [...] topic Insurance [employer] MEDICARE Care Teams Rural Service Engineer Relationship Specialty Start Date End Date José Miguel Vega PA [address] [place] [address] PCP - General Physician Slip Seat Coverer 10/30/24
== END 2025-05-13 15:37 | disposition home or self-care (01) ==
LOC: HO.HPODS 14:02
PROVIDERS: PCP Physician Assistant; Visit Provider Student in an Organized Health Care Education/Training Program
DX: S92.425A Nondisplaced fracture of distal phalanx of left great toe, initial encounter for closed fracture (principal); E11.9 Type 2 diabetes mellitus without complications; Z79.4 Long term (current) use of insulin; L60.2 Onychogryphosis
CPT/HCPCS: 11721; 99213

== ENCOUNTER → 2025-05-13 14:01 | Outpatient (BNVA) | payer MEDICARE, SELFPAY | PROVIDERS: PCP Physician Assistant; Visit Provider Student in an Organized Health Care Education/Training Program | DX: E11.9 Type 2 diabetes mellitus without complications (principal); S92.425A Nondisplaced fracture of distal phalanx of left great toe, initial encounter for closed fracture; Z79.4 Long term (current) use of insulin; L60.2 Onychogryphosis; W06.XXXA Fall from bed, initial encounter; Y92.9 Unspecified place or not applicable; Y93.9 Activity, unspecified | CPT/HCPCS: 11721; 99212 ==

== ENCOUNTER 2025-05-14 14:11 | Outpatient (REF) | payer MEDICARE, SELFPAY ==
--- NOTE | ~2025-05-14 | XR_ITS ---
EXAMINATION: XR FOOT, LEFT CLINICAL INFORMATION: S92.425A - Nondisplaced fracture of distal phalanx of left great toe, in... COMPARISON: March 30, 2025 TECHNIQUE: AP, lateral, and oblique views of the left foot. FINDINGS: There is diffuse osteopenia. There is a transverse fracture through the central region of the distal phalanx of the great toe extending to the medial metaphysis. The fracture line is more evident on the current examination . There is no interval change in position of the bone across the fracture line. Mild degenerative change with osteophytes is noted at the first MTP joint. XR/XR foot LT min 3V IMPRESSION: Stable fracture of the distal phalanx of the great toe. Increasing osteopenia. Mild osteoarthritis first MTP joint. Electronically signed by: Vivek Victor MD 05/14/2025 05:13 PM [facility]
== END 2025-05-14 14:12 | disposition home or self-care (01) ==
LOC: HO.HMGCX 14:11
PROVIDERS: Absent Provider Student in an Organized Health Care Education/Training Program; PCP Physician Assistant; Visit Provider Urology
DX: S92.425A Nondisplaced fracture of distal phalanx of left great toe, initial encounter for closed fracture (principal); R33.9 Retention of urine, unspecified
CPT/HCPCS: 51701; 73630

== ENCOUNTER → 2025-05-14 16:01 | Outpatient (BNV) | payer MEDICARE, SELFPAY | PROVIDERS: Absent Provider Student in an Organized Health Care Education/Training Program; PCP Physician Assistant; Visit Provider Radiology Diagnostic Radiology | DX: S92.425A Nondisplaced fracture of distal phalanx of left great toe, initial encounter for closed fracture (principal); M85.872 Other specified disorders of bone density and structure, left ankle and foot; M19.071 Primary osteoarthritis, right ankle and foot | CPT/HCPCS: 73630 ==